=== PATIENT | female | born 1990 | race Caucasian/White ===

== ENCOUNTER 2017-09-28 11:35 | Inpatient (IN) | payer OTHER ==
[2017-09-28 11:51] VITALS: BMI 23.0
[2017-09-28] MEDS ORDERED: Sodium Chloride 0.9% 1,000 ML IV SCH ×2 (12:00→14:45)
--- NOTE | 2017-09-28 12:17 | RAD ---
PROCEDURE: CHEST RADIOGRAPH, 1 VIEW HISTORY: Detox/Psy COMPARISON: None available. FINDINGS: LUNGS: Clear. PLEURA: No pneumothorax or pleural fluid seen. CARDIOVASCULAR: Normal. OSSEOUS STRUCTURES: No significant abnormalities. VISUALIZED UPPER ABDOMEN: Normal. OTHER FINDINGS: None. IMPRESSION: No active disease.
[2017-09-28 12:26] LABS: BASO % 0.7 % (0.0-2.0); EOS % 0.4 % (0.0-4.0); HEMOGLOBIN 13.6 g/dL (11.0-16.0); LYMPH # 1.6 K/uL (1.0-4.3); LYMPH % 27.9 % (20.0-40.0); MEAN CELL VOLUME 83.1 fL (81.0-99.0); MEAN CORPUSCULAR HEMOGLOBIN 28.4 pg (27.0-31.0); MEAN CORPUSCULAR HGB CONC 34.1 g/dL (33.0-37.0); MEAN PLATELET VOLUME 8.8 fL (7.2-11.7); MONO # 0.3 K/uL (0.0-0.8); MONO % 5.3 % (0.0-10.0); NEUT # 3.7 K/uL (1.8-7.0); NEUT % 65.7 % (50.0-75.0); NRBC % 0.1 % (0.0-2.0); RBC 4.79 Mil/uL (3.80-5.20); WHITE BLOOD COUNT 5.6 K/uL (4.8-10.8)
[2017-09-28 12:38] LABS: SQUAMOUS EPITHIAL < 1 /hpf (0-5); URINE BILIRUBIN NEGATIVE (NEGATIVE); URINE BLOOD NEGATIVE (NEGATIVE); URINE CLARITY Clear (Clear); URINE COLOR Yellow (YELLOW); URINE GLUCOSE (UA) NORMAL (Normal); URINE LEUKOCYTE ESTERASE NEG Leu/uL (Negative); URINE PROTEIN NEGATIVE (NEGATIVE); URINE UROBILINOGEN NORMAL mg/dL (0.2-1.0)
--- NOTE | 2017-09-28 12:42 | CT ---
PROCEDURE: CT HEAD WITHOUT CONTRAST. HISTORY: Dizziness COMPARISON: None available. TECHNIQUE: Axial computed tomography images were obtained through the head/brain without intravenous contrast. Radiation dose: Total exam DLP = 933.99 mGy-cm. This CT exam was performed using one or more of the following dose reduction techniques: Automated exposure control, adjustment of the mA and/or kV according to patient size, and/or use of iterative reconstruction technique. FINDINGS: HEMORRHAGE: No intracranial hemorrhage. BRAIN: No mass effect or edema. No atrophy or chronic microvascular ischemic changes. VENTRICLES: Unremarkable. No hydrocephalus. CALVARIUM: Unremarkable. PARANASAL SINUSES: Minor linear and polypoid like mobile coastal thickening seen within the left maxillary antrum MASTOID AIR CELLS: Unremarkable as visualized. No inflammatory changes. OTHER FINDINGS: Orbits and contents unremarkable IMPRESSION: No acute intracranial hemorrhage.
[2017-09-28 12:44] LABS: ACETAMINOPHEN < 10.0 ug/mL (10.0-30.0); SALICYLATE < 1.0 mg/dL 1
[2017-09-28 12:46] LABS: ALBUMIN 4.1 g/dL (3.5-5.0); AST/SGOT 27 U/L (14-36); BLOOD UREA NITROGEN 8 mg/dL (7-17); CALCIUM 8.8 mg/dl (8.6-10.4); GFR AFRICAN-AMERICAN > 60; GFR NON-AFRICAN AMERICAN > 60
--- NOTE | 2017-09-28 12:48 | C.PDOC ---
History Of Present Illness 27 y/o female brought to ER by ambulance for evaluation after she was found to be unresponsive. As per EMS, her roommates " found that she wasn't behaving normally and not responding." Per EMS, patient was found with UNISOM 60 tab bottle 50 mg and Advil PM. UNISOM Bottle was empty, Advil PM bottle had 122 tabs and was liquified. Of note, Patient was speaking with parents allegedly on phone prior to ingerstio. Of note, patient is awake, alert, and non-verbal. Patient does not acknowledge my questions. Time Seen by Provider: 09/28/17 11:36 Chief Complaint (Nursing): Psychiatric Evaluation History Per: EMS History/Exam Limitations: no limitations Onset/Duration Of Symptoms: Hrs Current Symptoms Are (Timing): Still Present Severity: Moderate Past Medical History Reviewed: Historical Data, Nursing Documentation, Vital Signs Vital Signs: Last Vital Signs Temp 98.6 F 09/30/17 08:00 Pulse 95 H 09/30/17 10:00 Resp 23 09/30/17 10:00 BP 100/57 L 09/30/17 10:00 Pulse Ox 99 09/30/17 11:06 - Medical History PMH: No Chronic Diseases Surgical History: No Surg Hx Family History: States: Unknown Family Hx - Social History Hx Alcohol Use: (PT NONVERBAL AT THIS TIME) Hx Substance Use: (PT NONVERBAL AT THIS TIME) Review Of Systems Review Of Systems: ROS cannot be obtained secondary to pt's inabilty to answer questions. Physical Exam - Physical Exam Appears: No Acute Distress, Other (awake,alert, non-verbal, does not acknowledge my questions, steers off) Skin: Normal Color, Warm, Dry Head: Atraumatic, Normacephalic Eye(s): bilateral: Normal Inspection, PERRL Nose: Normal Oral Mucosa: Moist Neck: Supple Chest: Symmetrical Cardiovascular: Rhythm Irregular (tachycardiac) Respiratory: Normal Breath Sounds, No Rales, No Rhonchi, No Wheezing Gastrointestinal/Abdominal: Soft, No Tenderness, No Guarding, No Rebound Neurological/Psych: Other (non-verbal, awake ) ED Course And Treatment - Laboratory Results Result Diagrams: 09/30/17 07:59 09/30/17 07:59 O2 Sat by Pulse Oximetry: 99 (RA) Pulse Ox Interpretation: Normal - CT Scan/US CT-Head Other Rad Studies (CT/US): Read By Radiologist, Radiology Report Reviewed CT/US Interpretation: PROCEDURE: CT HEAD WITHOUT CONTRAST. HISTORY: Dizziness. COMPARISON: None available. TECHNIQUE: Axial computed tomography images were obtained through the head/brain without intravenous contrast. Radiation dose: Total exam DLP = 933.99 mGy-cm. This CT exam was performed using one or more of the following dose reduction techniques: Automated exposure control, adjustment of the mA and/or kV according to patient size, and/ or use of iterative reconstruction technique. FINDINGS: HEMORRHAGE: No intracranial hemorrhage. BRAIN: No mass effect or edema. No atrophy or chronic microvascular ischemic changes. VENTRICLES: Unremarkable. No hydrocephalus. CALVARIUM: Unremarkable. PARANASAL SINUSES: Minor linear and polypoid like mobile coastal thickening seen within the left maxillary antrum. MASTOID AIR CELLS: Unremarkable as visualized. No inflammatory changes. OTHER FINDINGS: Orbits and contents unremarkable. IMPRESSION: No acute intracranial hemorrhage. Medical Decision Making Medical Decision Making: Assessment: Overdose Plan: --Labs --CT- Head --CXR --Ativan IV -- IV Fluids Updates: 12:00 PM Poison Control contacted. Case discussed with hospitalist, . Patient has been admitted to Telemetry for overdose under the service of . critical care time - 50 minutes Disposition Discussed With .: Issac Goodwin Doctor Will See Patient In The: Hospital Counseled Patient/Family Regarding: Studies Performed, Diagnosis - Disposition Disposition: HOSPITALIZED Disposition Time: 13:04 Condition: FAIR - Clinical Impression Clinical Impression: Overdose - Scribe Statement The provider has reviewed the documentation as recorded by the Jose A Reno Provider Attestation: All medical record entries made by the Saniaiblevon were at my direction and personally dictated by me. I have reviewed the chart and agree that the record accurately reflects my personal performance of the history, physical exam, medical decision making, and the department course for this patient. I have also personally directed, reviewed, and agree with the discharge instructions and disposition.
[2017-09-28 12:50] LABS: ALT/SGPT < 6 U/L (9-52)
[2017-09-28] MEDS ORDERED: Dextrose 25% Inj (10ml) IV ONE (12:50)
[2017-09-28 12:51] LABS: BARBITURATES, UR NEGATIVE (NEGATIVE); BENZODIAZEPINES, UR NEGATIVE (NEGATIVE); PHENCYCLIDINE, UR NEGATIVE (NEGATIVE)
[2017-09-28] MEDS ORDERED: Dextrose 25% Inj (10ml) ONE (13:01)
[2017-09-28 13:06] LABS: OPIATES, UR NEGATIVE (NEGATIVE)
[2017-09-28 13:50] LABS: ABG ALLEN TEST POS; ARTERIAL BLOOD GAS HEMOGLOBIN 12.2 g/dL (11.7-17.4); ARTERIAL BLOOD GAS O2 SAT 97.4 % (95-98); ARTERIAL BLOOD GAS PCO2 29 mm/Hg (35-45); ARTERIAL BLOOD GAS PH 7.34 (7.35-7.45); ARTERIAL BLOOD GAS PO2 128 mm/Hg (80-100); ARTERIAL BLOOD GAS TCO2 16.5 mmol/L (22-28)
--- NOTE | 2017-09-28 14:05 | CP.PCM.CON ---
<Tea Nowak - Last Filed: 09/28/17 18:25> History of Present Illness - History of Present Illness History of Present Illness: Critical Care Consult for Dr. Aleksandra Kincaid This is a 27 year old female with unknown medical history who was found unresponsive by her roommates. Patient moved here recently from [facility] and is currently residing with newly acquainted roommates. As per the roommates, she was last seen talking to her parents over the phone this morning, when they started to argue. Shortly after, she was found unresponsive with an empty bottle of Unisom 50mg, 60 tablets and Advil PM, 120 tablets with tablets and liquified content in the bottle. As per EMS, she was found supine, no evidence of head or neck trauma, she was not moving her extremities, was not actively seizing. Patient seen at bedside in the ED. She was tachycardiac 120-140s, with pupils reactive, neck rigid, unable to sidebend to the right, resists passive movement, responds to sternal rub, upper and lower extremities flexed. Accucheck showed sugars <50. Given D50 x 2. Placed on D5 - Bicarb drip. ROS unattainable due to clinical state. PMHx: Unknown PSHx: Unknown Meds: Unknown All: Unknown SHx: Unknown FHx: Unknown Past Patient History - Past Social History Smoking Status: Unknown If Ever Smoked - PSYCHIATRIC Hx Substance Use: (PT NONVERBAL AT THIS TIME) Meds Allergies/Adverse Reactions: Allergies Allergy/AdvReac Type Severity Reaction Status Date / Time Unobtainable Allergy Verified 09/28/17 11:50 - Medications Medications: Current Medications Sodium Chloride (Sodium Chloride 0.9%) 1,000 mls @ 100 mls/hr IV .Q10H [facility] Last Admin: 09/28/17 12:56 Dose: 100 mls/hr Physical Exam - Constitutional Appears: Toxic, Confused - Head Exam Head Exam: ATRAUMATIC, NORMAL INSPECTION, NORMOCEPHALIC - Eye Exam Eye Exam: Normal appearance, PERRL. absent: Conjunctival injection, Nystagmus, Periorbital swelling, Periorbital tenderness, Scleral icterus Pupil Exam: PERRL. absent: Miosis, Mydriatic - ENT Exam ENT Exam: Mucous Membranes Dry, Normal Oropharynx - Neck Exam Neck exam: Negative for: Tenderness, Thyromegaly Additional comments: Neck is rigid, unable to passively flex, sidebend or extend. sidebent to the left - Respiratory Exam Respiratory Exam: Clear to Auscultation Bilateral, NORMAL BREATHING PATTERN. absent: Decreased Breath Sounds - Cardiovascular Exam Cardiovascular Exam: Tachycardia - GI/Abdominal Exam GI & Abdominal Exam: Normal Bowel Sounds, Soft. absent: Distended, Organomegaly - Rectal Exam Rectal Exam: Deferred - Extremities Exam Extremities exam: Positive for: normal inspection, pedal pulses present. Negative for: pedal edema, tenderness - Back Exam Back exam: NORMAL INSPECTION - Neurological Exam Neurological exam: Altered - Expanded Neurological Exam Expanded Neuro motor strength exam: Left Upper Extremity: 3, Right Upper Extremity: 3, Left Lower Extremity: 3, Right Lower Extremity: 3 Coma Scale Eye Opening: To Pain Coma Scale Motor Response: Withdraws to Pain, Abnormal Flexion - Skin Skin Exam: Dry, Intact, Normal Color, Warm Results - Vital Signs Recent Vital Signs: Last Vital Signs Temp 97.5 F L 09/28/17 11:35 Pulse 138 H 09/28/17 13:45 Resp 18 09/28/17 13:45 BP 108/57 L 09/28/17 13:45 Pulse Ox 100 09/28/17 13:45 - Labs Result Diagrams: 09/28/17 12:19 09/28/17 12:19 Labs: Laboratory Results - last 24 hr 09/28/17 09/28/17 09/28/17 11:46 12:19 12:19 WBC 5.6 RBC 4.79 Hgb 13.6 Hct 39.8 MCV 83.1 MCH 28.4 MCHC 34.1 RDW 14.0 Plt Count 292 MPV 8.8 Neut % (Auto) 65.7 Lymph % (Auto) 27.9 Doddridge % (Auto) 5.3 Eos % (Auto) 0.4 Baso % (Auto) 0.7 Neut # (Auto) 3.7 Lymph # (Auto) 1.6 Doddridge # (Auto) 0.3 Eos # (Auto) 0.0 Baso # (Auto) 0.0 Puncture Site pCO2 pO2 HCO3 ABG pH ABG Total CO2 ABG O2 Saturation ABG Base Excess ABG Hemoglobin ABG Carboxyhemoglobin POC ABG HHb (Measured) ABG Methemoglobin Barry Test A-a O2 Difference Respiratory Index Hgb O2 Saturation FiO2 Sodium Potassium Chloride Carbon Dioxide Anion Gap BUN Creatinine Est GFR ( Amer) Est GFR (Non-Af Amer) POC Glucose (mg/dL) 71 Random Glucose Calcium Total Bilirubin AST ALT Alkaline Phosphatase Total Creatine Kinase Total Protein Albumin Globulin Albumin/Globulin Ratio Urine Color Yellow Urine Clarity Clear Urine pH 6.0 Ur Specific Olga 1.006 Urine Protein Negative Urine Glucose (UA) Normal Urine Ketones Negative Urine Blood Negative Urine Nitrate Negative Urine Bilirubin Negative Urine Urobilinogen Normal Ur Leukocyte Esterase Neg Urine WBC (Auto) < 1 Urine RBC (Auto) < 1 Ur Squamous Epith Cells < 1 Salicylates Urine Opiates Screen Urine Methadone Screen Acetaminophen Ur Barbiturates Screen Ur Phencyclidine Scrn Ur Amphetamines Screen U Benzodiazepines Scrn U Oth Cocaine Metabols U Cannabinoids Screen Alcohol, Quantitative 09/28/17 09/28/17 09/28/17 12:19 12:19 12:19 WBC RBC Hgb Hct MCV MCH MCHC RDW Plt Count MPV Neut % (Auto) Lymph % (Auto) Doddridge % (Auto) Eos % (Auto) Baso % (Auto) Neut # (Auto) Lymph # (Auto) Doddridge # (Auto) Eos # (Auto) Baso # (Auto) Puncture Site pCO2 pO2 HCO3 ABG pH ABG Total CO2 ABG O2 Saturation ABG Base Excess ABG Hemoglobin ABG Carboxyhemoglobin POC ABG HHb (Measured) ABG Methemoglobin Barry Test A-a O2 Difference Respiratory Index Hgb O2 Saturation FiO2 Sodium 139 Potassium 3.5 L Chloride 104 Carbon Dioxide 19 L Anion Gap 19 BUN 8 Creatinine 0.6 L Est GFR ( Amer) > 60 Est GFR (Non-Af Amer) > 60 POC Glucose (mg/dL) Random Glucose 61 L Calcium 8.8 Total Bilirubin 0.7 AST 27 ALT < 6 L Alkaline Phosphatase 67 Total Creatine Kinase 86 Total Protein 8.2 Albumin 4.1 Globulin 4.1 H Albumin/Globulin Ratio 1.0 Urine Color Urine Clarity Urine pH Ur Specific Olga Urine Protein Urine Glucose (UA) Urine Ketones Urine Blood Urine Nitrate Urine Bilirubin Urine Urobilinogen Ur Leukocyte Esterase Urine WBC (Auto) Urine RBC (Auto) Ur Squamous Epith Cells Salicylates < 1.0 Urine Opiates Screen Negative Urine Methadone Screen Negative Acetaminophen < 10.0 L Ur Barbiturates Screen Negative Ur Phencyclidine Scrn Negative Ur Amphetamines Screen Negative U Benzodiazepines Scrn Negative U Oth Cocaine Metabols Negative U Cannabinoids Screen Negative Alcohol, Quantitative < 10 09/28/17 13:45 WBC RBC Hgb Hct MCV MCH MCHC RDW Plt Count MPV Neut % (Auto) Lymph % (Auto) Doddridge % (Auto) Eos % (Auto) Baso % (Auto) Neut # (Auto) Lymph # (Auto) Dod[place]idge # (Auto) Eos # (Auto) Baso # (Auto) Puncture Site Rradial pCO2 29 L pO2 128 H HCO3 18.0 L ABG pH 7.34 L ABG Total CO2 16.5 L ABG O2 Saturation 97.4 ABG Base Excess -8.9 L ABG Hemoglobin 12.2 ABG Carboxyhemoglobin 0.3 L POC ABG HHb (Measured) 2.6 ABG Methemoglobin 0.7 Barry Test Pos A-a O2 Difference -15.0 Respiratory Index -0.1 Hgb O2 Saturation 96.3 FiO2 21.0 Sodium Potassium Chloride Carbon Dioxide Anion Gap BUN Creatinine Est GFR ( Amer) Est GFR (Non-Af Amer) POC Glucose (mg/dL) Random Glucose Calcium Total Bilirubin AST ALT Alkaline Phosphatase Total Creatine Kinase Total Protein Albumin Globulin Albumin/Globulin Ratio Urine Color Urine Clarity Urine pH Ur Specific Olga Urine Protein Urine Glucose (UA) Urine Ketones Urine Blood Urine Nitrate Urine Bilirubin Urine Urobilinogen Ur Leukocyte Esterase Urine WBC (Auto) Urine RBC (Auto) Ur Squamous Epith Cells Salicylates Urine Opiates Screen Urine Methadone Screen Acetaminophen Ur Barbiturates Screen Ur Phencyclidine Scrn Ur Amphetamines Screen U Benzodiazepines Scrn U Oth Cocaine Metabols U Cannabinoids Screen Alcohol, Quantitative Assessment & Plan - Assessment and Plan (Free Text) Assessment: This is a 27 year old female with unknown medical history who was found unresponsive by her roommates. Patient moved here recently from [facility] and is currently residing with newly acquainted roommates. As per the roommates, she was last seen talking to her parents over the phone this morning, when they started to argue. Shortly after, she was found unresponsive with an empty bottle of Unisom 50mg, 60 tablets and Advil PM, 120 tablets with tablets and liquified content in the bottle. As per EMS, she was found supine, no evidence of head or neck trauma, she was not moving her extremities, was not actively seizing. Patient seen at bedside in the ED. She was tachycardiac 120-140s, with pupils reactive, neck rigid, unable to sidebend to the right, resists passive movement, responds to sternal rub, upper and lower extremities flexed. Accucheck showed sugars <50. Given D50 x 2. Placed on D5 - Bicarb drip. Plan: Neuro: GCS 10 (E4 V2 M4) Awake, attempting to communicate, able to move all extremities on command A: Overdose - Started on Bicarbonate drip - Started Acetylcysteine protocol - F/U drug tox, monitor lactate level, serial labs Q6Hs A: ??Seizure Activity - Neurology consulted - Dr. Bowens - EEG done at bedside - pending read - Keppra loaded, started Keppra 750mg Q12 Cardio: A: Prolonged QTc - EKG: QTc @ 570 - Serial EKGs to monitor QTc Pulm: - No acute distress Endo: A: Hypoglycemia - Accuchecks < 50s in the ED - Was given D50 x 2 amps in ED --250s - Accuchecks, continue to monitor - Currently on D5-0.9% NS ID: A: SIRS - Afebrile, no leukocytosis with left shift, no bandemia, Lactate 3.5 --> 4.7 - Started Rocephin, Vanco empirically 09/28/17 - F/U UC, BC, procal GI: - No acute issues Psych: - Psych consulted - Dr. Tavares for overdose Prophylaxis - Lovenox DW Dr. Aleksandra Kincaid, Tea Nowak DO, PGY-1 <Awilda Kincaid - Last Filed: 09/29/17 10:45> Meds - Medications Medications: Current Medications Enoxaparin Sodium (Lovenox) 40 mg SC DAILY [facility] Acetylcysteine 5,900 mg/ (Dextrose) 1,029.5 mls @ 64.344 mls/hr IVPB ONCE ONE Stop: 09/29/17 12:59 Last Admin: 09/28/17 22:02 Dose: 64.344 mls/hr Vancomycin/Sodium Chloride (Vancomycin 1 Gm/Ns 200 Ml) 1 gm in 200 mls @ 133 mls/hr IVPB Q12H [facility]IN PRN Reason: Protocol Stop: 10/03/17 17:01 Last Admin: 09/29/17 05:59 Dose: 133 mls/hr Ceftriaxone Sodium 2 gm/ (Sodium Chloride) 100 mls @ 100 mls/hr IVPB Q12H [facility] PRN Reason: Protocol Last Admin: 09/29/17 04:38 Dose: 100 mls/hr Levetiracetam 750 mg/ Dextrose 107.5 mls @ 420 mls/hr IVPB Q12H [facility] Dextrose/Sodium Chloride (Dextrose 5%/0.9% Ns 1000 Ml) 1,000 mls @ 100 mls/hr IV .Q10H [facility] Last Admin: 09/29/17 05:59 Dose: Not Given Potassium Phosphate 15 mmole/ (Sodium Chloride) 255 mls @ 42.5 mls/hr IV ONCE ONE Stop: 09/29/17 13:29 Last Admin: 09/29/17 10:29 Dose: 42.5 mls/hr Magnesium Sulfate/Dextrose (Magnesium Sulfate 1 Gm/100 Ml D5w) 1 gm in 100 mls @ 100 mls/hr IVPB Q1H [facility] Stop: 09/29/17 10:59 Last Admin: 09/29/17 09:54 Dose: 100 mls/hr Potassium Chloride (Potassium Chloride 10 Meq/100 Ml) 10 meq in 100 mls @ 100 mls/hr IVPB Q1H [facility] Stop: 09/29/17 12:14 Last Admin: 09/29/17 10:27 Dose: 100 mls/hr Pneumococcal Polyvalent Vaccine (Pneumovax 23 Vaccine) 0.5 ml SC .ONCE ONE Stop: 10/01/17 10:01 Vitamin A (Vitamin A & D Oint Ud Foilpak) 1 ea TOP BID [facility] Results - Vital Signs Recent Vital Signs: Last Vital Signs Temp 97.6 F 09/29/17 08:00 Pulse 110 H 09/29/17 10:00 Resp 19 09/29/17 10:00 BP 118/61 09/29/17 09:59 Pulse Ox 100 09/29/17 10:00 - Labs Result Diagrams: 09/29/17 06:12 09/29/17 06:14 Labs: Laboratory Results - last 24 hr 09/28/17 09/28/17 09/28/17 11:46 12:19 12:19 WBC 5.6 RBC 4.79 Hgb 13.6 Hct 39.8 MCV 83.1 MCH 28.4 MCHC 34.1 RDW 14.0 Plt Count 292 MPV 8.8 Neut % (Auto) 65.7 Lymph % (Auto) 27.9 Doddridge % (Auto) 5.3 Eos % (Auto) 0.4 Baso % (Auto) 0.7 Neut # (Auto) 3.7 Lymph # (Auto) 1.6 Doddridge # (Auto) 0.3 Eos # (Auto) 0.0 Baso # (Auto) 0.0 Neutrophils % (Manual) Lymphocytes % (Manual) Monocytes % (Manual) Platelet Estimate RBC Morphology Puncture Site pCO2 pO2 HCO3 ABG pH ABG Total CO2 ABG O2 Saturation ABG Base Excess ABG Hemoglobin ABG Carboxyhemoglobin POC ABG HHb (Measured) ABG Methemoglobin Barry Test VBG pH VBG pCO2 VBG HCO3 VBG Total CO2 VBG O2 Sat (Calc) VBG Base Excess VBG Potassium A-a O2 Difference Respiratory Index Hgb O2 Saturation Glucose Lactate FiO2 Crit Value Called To Crit Value Called By Crit Value Read Back Blood Gas Notified Time Sodium Potassium Chloride Carbon Dioxide Anion Gap BUN Creatinine Est GFR ( Amer) Est GFR (Non-Af Amer) POC Glucose (mg/dL) 71 Random Glucose Serum Osmolality Lactic Acid Calcium Phosphorus Magnesium Total Bilirubin AST ALT Alkaline Phosphatase Ammonia Total Creatine Kinase Total Protein Albumin Globulin Albumin/Globulin Ratio Procalcitonin Venous Blood Potassium Urine Color Yellow Urine Clarity Clear Urine pH 6.0 Ur Specific Olga 1.006 Urine Protein Negative Urine Glucose (UA) Normal Urine Ketones Negative Urine Blood Negative Urine Nitrate Negative Urine Bilirubin Negative Urine Urobilinogen Normal Ur Leukocyte Esterase Neg Urine WBC (Auto) < 1 Urine RBC (Auto) < 1 Ur Squamous Epith Cells < 1 Urine Osmolality Salicylates Urine Opiates Screen Urine Methadone Screen Acetaminophen Ur Barbiturates Screen Ur Phencyclidine Scrn Ur Amphetamines Screen U Benzodiazepines Scrn U Oth Cocaine Metabols U Cannabinoids Screen Alcohol, Quantitative 09/28/17 09/28/17 09/28/17 12:19 12:19 12:19 WBC RBC Hgb Hct MCV MCH MCHC RDW Plt Count MPV Neut % (Auto) Lymph % (Auto) Doddridge % (Auto) Eos % (Auto) Baso % (Auto) Neut # (Auto) Lymph # (Auto) Doddridge # (Auto) Eos # (Auto) Baso # (Auto) Neutrophils % (Manual) Lymphocytes % (Manual) Monocytes % (Manual) Platelet Estimate RBC Morphology Puncture Site pCO2 pO2 HCO3 ABG pH ABG Total CO2 ABG O2 Saturation ABG Base Excess ABG Hemoglobin ABG Carboxyhemoglobin POC ABG HHb (Measured) ABG Methemoglobin Barry Test VBG pH VBG pCO2 VBG HCO3 VBG Total CO2 VBG O2 Sat (Calc) VBG Base Excess VBG Potassium A-a O2 Difference Respiratory Index Hgb O2 Saturation Glucose Lactate FiO2 Crit Value Called To Crit Value Called By Crit Value Read Back Blood Gas Notified Time Sodium 139 Potassium 3.5 L Chloride 104 Carbon Dioxide 19 L Anion Gap 19 BUN 8 Creatinine 0.6 L Est GFR ( Amer) > 60 Est GFR (Non-Af Amer) > 60 POC Glucose (mg/dL) Random Glucose 61 L Serum Osmolality Lactic Acid Calcium 8.8 Phosphorus Magnesium Total Bilirubin 0.7 AST 27 ALT < 6 L Alkaline Phosphatase 67 Ammonia Total Creatine Kinase 86 Total Protein 8.2 Albumin 4.1 Globulin 4.1 H Albumin/Globulin Ratio 1.0 Procalcitonin Venous Blood Potassium Urine Color Urine Clarity Urine pH Ur Specific Olga Urine Protein Urine Glucose (UA) Urine Ketones Urine Blood Urine Nitrate Urine Bilirubin Urine Urobilinogen Ur Leukocyte Esterase Urine WBC (Auto) Urine RBC (Auto) Ur Squamous Epith Cells Urine Osmolality Salicylates < 1.0 Urine Opiates Screen Negative Urine Methadone Screen Negative Acetaminophen < 10.0 L Ur Barbiturates Screen Negative Ur Phencyclidine Scrn Negative Ur Amphetamines Screen Negative U Benzodiazepines Scrn Negative U Oth Cocaine Metabols Negative U Cannabinoids Screen Negative Alcohol, Quantitative < 10 09/28/17 09/28/17 09/28/17 13:45 14:24 14:45 WBC RBC Hgb Hct MCV MCH MCHC RDW Plt Count MPV Neut % (Auto) Lymph % (Auto) Doddridge % (Auto) Eos % (Auto) Baso % (Auto) Neut # (Auto) Lymph # (Auto) Doddridge # (Auto) Eos # (Auto) Baso # (Auto) Neutrophils % (Manual) Lymphocytes % (Manual) Monocytes % (Manual) Platelet Estimate RBC Morphology Puncture Site Rradial pCO2 29 L pO2 128 H HCO3 18.0 L ABG pH 7.34 L ABG Total CO2 16.5 L ABG O2 Saturation 97.4 ABG Base Excess -8.9 L ABG Hemoglobin 12.2 ABG Carboxyhemoglobin 0.3 L POC ABG HHb (Measured) 2.6 ABG Methemoglobin 0.7 Barry Test Pos VBG pH VBG pCO2 VBG HCO3 VBG Total CO2 VBG O2 Sat (Calc) VBG Base Excess VBG Potassium A-a O2 Difference -15.0 Respiratory Index -0.1 Hgb O2 Saturation 96.3 Glucose Lactate FiO2 21.0 Crit Value Called To Crit Value Called By Crit Value Read Back Blood Gas Notified Time Sodium Potassium Chloride Carbon Dioxide Anion Gap BUN Creatinine Est GFR ( Amer) Est GFR (Non-Af Amer) POC Glucose (mg/dL) 57 L Random Glucose Serum Osmolality Lactic Acid Calcium Phosphorus Magnesium Total Bilirubin AST ALT Alkaline Phosphatase Ammonia < 9 L Total Creatine Kinase Total Protein Albumin Globulin Albumin/Globulin Ratio Procalcitonin Venous Blood Potassium Urine Color Urine Clarity Urine pH Ur Specific Olga Urine Protein Urine Glucose (UA) Urine Ketones Urine Blood Urine Nitrate Urine Bilirubin Urine Urobilinogen Ur Leukocyte Esterase Urine WBC (Auto) Urine RBC (Auto) Ur Squamous Epith Cells Urine Osmolality Salicylates Urine Opiates Screen Urine Methadone Screen Acetaminophen Ur Barbiturates Screen Ur Phencyclidine Scrn Ur Amphetamines Screen U Benzodiazepines Scrn U Oth Cocaine Metabols U Cannabinoids Screen Alcohol, Quantitative 09/28/17 09/28/17 09/28/17 14:47 15:14 15:20 WBC RBC Hgb Hct MCV MCH MCHC RDW Plt Count MPV Neut % (Auto) Lymph % (Auto) Doddridge % (Auto) Eos % (Auto) Baso % (Auto) Neut # (Auto) Lymph # (Auto) Doddridge # (Auto) Eos # (Auto) Baso # (Auto) Neutrophils % (Manual) Lymphocytes % (Manual) Monocytes % (Manual) Platelet Estimate RBC Morphology Puncture Site pCO2 pO2 HCO3 ABG pH ABG Total CO2 ABG O2 Saturation ABG Base Excess ABG Hemoglobin ABG Carboxyhemoglobin POC ABG HHb (Measured) ABG Methemoglobin Barry Test VBG pH VBG pCO2 VBG HCO3 VBG Total CO2 VBG O2 Sat (Calc) VBG Base Excess VBG Potassium A-a O2 Difference Respiratory Index Hgb O2 Saturation Glucose Lactate FiO2 Crit Value Called To Crit Value Called By Crit Value Read Back Blood Gas Notified Time Sodium Potassium Chloride Carbon Dioxide Anion Gap BUN Creatinine Est GFR ( Amer) Est GFR (Non-Af Amer) POC Glucose (mg/dL) 60 L 214 H Random Glucose Serum Osmolality Lactic Acid Calcium Phosphorus Magnesium Total Bilirubin AST ALT Alkaline Phosphatase Ammonia Total Creatine Kinase Total Protein Albumin Globulin Albumin/Globulin Ratio Procalcitonin Venous Blood Potassium Urine Color Urine Clarity Urine pH Ur Specific Olga Urine Protein Urine Glucose (UA) Urine Ketones Urine Blood Urine Nitrate Urine Bilirubin Urine Urobilinogen Ur Leukocyte Esterase Urine WBC (Auto) Urine RBC (Auto) Ur Squamous Epith Cells Urine Osmolality 291 L Salicylates Urine Opiates Screen Urine Methadone Screen Acetaminophen Ur Barbiturates Screen Ur Phencyclidine Scrn Ur Amphetamines Screen U Benzodiazepines Scrn U Oth Cocaine Metabols U Cannabinoids Screen Alcohol, Quantitative 09/28/17 09/28/17 09/28/17 15:20 16:26 16:48 WBC RBC Hgb Hct MCV MCH MCHC RDW Plt Count MPV Neut % (Auto) Lymph % (Auto) Doddridge % (Auto) Eos % (Auto) Baso % (Auto) Neut # (Auto) Lymph # (Auto) Doddridge # (Auto) Eos # (Auto) Baso # (Auto) Neutrophils % (Manual) Lymphocytes % (Manual) Monocytes % (Manual) Platelet Estimate RBC Morphology Puncture Site pCO2 pO2 HCO3 ABG pH ABG Total CO2 ABG O2 Saturation ABG Base Excess ABG Hemoglobin ABG Carboxyhemoglobin POC ABG HHb (Measured) ABG Methemoglobin Barry Test VBG pH VBG pCO2 VBG HCO3 VBG Total CO2 VBG O2 Sat (Calc) VBG Base Excess VBG Potassium A-a O2 Difference Respiratory Index Hgb O2 Saturation Glucose Lactate FiO2 Crit Value Called To Crit Value Called By Crit Value Read Back Blood Gas Notified Time Sodium Potassium Chloride Carbon Dioxide Anion Gap BUN Creatinine Est GFR ( Amer) Est GFR (Non-Af Amer) POC Glucose (mg/dL) 237 H Random Glucose Serum Osmolality 294 Lactic Acid 3.5 H Calcium Phosphorus Magnesium Total Bilirubin AST ALT Alkaline Phosphatase Ammonia Total Creatine Kinase Total Protein Albumin Globulin Albumin/Globulin Ratio Procalcitonin Venous Blood Potassium Urine Color Urine Clarity Urine pH Ur Specific Olga Urine Protein Urine Glucose (UA) Urine Ketones Urine Blood Urine Nitrate Urine Bilirubin Urine Urobilinogen Ur Leukocyte Esterase Urine WBC (Auto) Urine RBC (Auto) Ur Squamous Epith Cells Urine Osmolality Salicylates Urine Opiates Screen Urine Methadone Screen Acetaminophen Ur Barbiturates Screen Ur Phencyclidine Scrn Ur Amphetamines Screen U Benzodiazepines Scrn U Oth Cocaine Metabols U Cannabinoids Screen Alcohol, Quantitative 09/28/17 09/28/17 09/28/17 17:31 20:07 20:14 WBC RBC Hgb Hct MCV MCH MCHC RDW Plt Count MPV Neut % (Auto) Lymph % (Auto) Dod[place]idge % (Auto) Eos % (Auto) Baso % (Auto) Neut # (Auto) Lymph # (Auto) Dod[place]idge # (Auto) Eos # (Auto) Baso # (Auto) Neutrophils % (Manual) Lymphocytes % (Manual) Monocytes % (Manual) Platelet Estimate RBC Morphology Puncture Site pCO2 pO2 35 41 HCO3 ABG pH ABG Total CO2 ABG O2 Saturation ABG Base Excess ABG Hemoglobin ABG Carboxyhemoglobin POC ABG HHb (Measured) ABG Methemoglobin Barry Test VBG pH 7.28 L 7.38 VBG pCO2 37 L 31 L VBG HCO3 17.2 19.9 VBG Total CO2 18.5 L 19.3 L VBG O2 Sat (Calc) 66.6 H 80.7 H VBG Base Excess -8.6 L -5.7 L VBG Potassium 5.0 3.1 L A-a O2 Difference Respiratory Index Hgb O2 Saturation Glucose 241 H 162 H Lactate 4.7 H* 2.4 H FiO2 Crit Value Called To Dr. kincaid Crit Value Called By Effie Crit Value Read Back Y Blood Gas Notified Time 1731 Sodium 137.0 134.0 Potassium Chloride 100.0 100.0 Carbon Dioxide Anion Gap BUN Creatinine Est GFR ( Amer) Est GFR (Non-Af Amer) POC Glucose (mg/dL) 185 H Random Glucose Serum Osmolality Lactic Acid Calcium Phosphorus Magnesium Total Bilirubin AST ALT Alkaline Phosphatase Ammonia Total Creatine Kinase Total Protein Albumin Globulin Albumin/Globulin Ratio Procalcitonin Venous Blood Potassium 5.0 3.1 L Urine Color Urine Clarity Urine pH Ur Specific Olga Urine Protein Urine Glucose (UA) Urine Ketones Urine Blood Urine Nitrate Urine Bilirubin Urine Urobilinogen Ur Leukocyte Esterase Urine WBC (Auto) Urine RBC (Auto) Ur Squamous Epith Cells Urine Osmolality Salicylates Urine Opiates Screen Urine Methadone Screen Acetaminophen Ur Barbiturates Screen Ur Phencyclidine Scrn Ur Amphetamines Screen U Benzodiazepines Scrn U Oth Cocaine Metabols U Cannabinoids Screen Alcohol, Quantitative 09/28/17 09/28/17 09/28/17 20:20 20:20 20:20 WBC 9.9 D RBC 4.79 Hgb 13.2 Hct 39.9 MCV 83.2 MCH 27.5 MCHC 33.1 RDW 14.4 Plt Count 282 MPV 8.5 Neut % (Auto) 92.7 H Lymph % (Auto) 3.9 L Dod[place]idge % (Auto) 3.0 Eos % (Auto) 0.0 Baso % (Auto) 0.4 Neut # (Auto) 9.2 H Lymph # (Auto) 0.4 L Doddridge # (Auto) 0.3 Eos # (Auto) 0.0 Baso # (Auto) 0.0 Neutrophils % (Manual) 95 H Lymphocytes % (Manual) 4 L Monocytes % (Manual) 1 Platelet Estimate Normal RBC Morphology Puncture Site pCO2 pO2 HCO3 ABG pH ABG Total CO2 ABG O2 Saturation ABG Base Excess ABG Hemoglobin ABG Carboxyhemoglobin POC ABG HHb (Measured) ABG Methemoglobin Barry Test VBG pH VBG pCO2 VBG HCO3 VBG Total CO2 VBG O2 Sat (Calc) VBG Base Excess VBG Potassium A-a O2 Difference Respiratory Index Hgb O2 Saturation Glucose Lactate FiO2 Crit Value Called To Crit Value Called By Crit Value Read Back Blood Gas Notified Time Sodium 136 Potassium 3.3 L Chloride 100 Carbon Dioxide 17 L Anion Gap 22 H BUN 6 L Creatinine 0.5 L Est GFR ( Amer) > 60 Est GFR (Non-Af Amer) > 60 POC Glucose (mg/dL) Random Glucose 157 H Serum Osmolality Lactic Acid Calcium 7.6 L Phosphorus 1.0 L* Magnesium 1.7 Total Bilirubin 0.4 AST 18 ALT 8 L D Alkaline Phosphatase < 20 L D Ammonia Total Creatine Kinase Total Protein 7.5 Albumin 4.2 Globulin 3.3 Albumin/Globulin Ratio 1.3 Procalcitonin < 0.05 L Venous Blood Potassium Urine Color Urine Clarity Urine pH Ur Specific Olga Urine Protein Urine Glucose (UA) Urine Ketones Urine Blood Urine Nitrate Urine Bilirubin Urine Urobilinogen Ur Leukocyte Esterase Urine WBC (Auto) Urine RBC (Auto) Ur Squamous Epith Cells Urine Osmolality Salicylates Urine Opiates Screen Urine Methadone Screen Acetaminophen Ur Barbiturates Screen Ur Phencyclidine Scrn Ur Amphetamines Screen U Benzodiazepines Scrn U Oth Cocaine Metabols U Cannabinoids Screen Alcohol, Quantitative 09/28/17 09/29/1718 23:40 05:35 05:48 WBC RBC Hgb Hct MCV MCH MCHC RDW Plt Count MPV Neut % (Auto) Lymph % (Auto) Dod[place]idge % (Auto) Eos % (Auto) Baso % (Auto) Neut # (Auto) Lymph # (Auto) Doddridge # (Auto) Eos # (Auto) Baso # (Auto) Neutrophils % (Manual) Lymphocytes % (Manual) Monocytes % (Manual) Platelet Estimate RBC Morphology Puncture Site pCO2 pO2 27 L HCO3 ABG pH ABG Total CO2 ABG O2 Saturation ABG Base Excess ABG Hemoglobin ABG Carboxyhemoglobin POC ABG HHb (Measured) ABG Methemoglobin Barry Test VBG pH 7.49 H VBG pCO2 29 L VBG HCO3 23.7 VBG Total CO2 23.0 VBG O2 Sat (Calc) 56.9 VBG Base Excess -0.2 L VBG Potassium 2.5 L* A-a O2 Difference Respiratory Index Hgb O2 Saturation Glucose 110 H Lactate 1.5 FiO2 Crit Value Called To Reginald sanchez rn 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 Crit Value Read Back Y Blood Gas Notified Time 540 Sodium 137.0 Potassium Chloride 104.0 Carbon Dioxide Anion Gap BUN Creatinine Est GFR ( Amer) Est GFR (Non-Af Amer) POC Glucose (mg/dL) 105 119 H Random Glucose Serum Osmolality Lactic Acid Calcium Phosphorus Magnesium Total Bilirubin AST ALT Alkaline Phosphatase Ammonia Total Creatine Kinase Total Protein Albumin Globulin Albumin/Globulin Ratio Procalcitonin Venous Blood Potassium 2.5 L* Urine Color Urine Clarity Urine pH Ur Specific [place] Urine Protein Urine Glucose (UA) Urine Ketones Urine Blood Urine Nitrate Urine Bilirubin Urine Urobilinogen Ur Leukocyte Esterase Urine WBC (Auto) Urine RBC (Auto) Ur Squamous Epith Cells Urine Osmolality Salicylates Urine Opiates Screen Urine Methadone Screen Acetaminophen Ur Barbiturates Screen Ur Phencyclidine Scrn Ur Amphetamines Screen U Benzodiazepines Scrn U Oth Cocaine Metabols U Cannabinoids Screen Alcohol, Quantitative 09/29/17 09/29/17 09/29/17 06:12 06:14 07:01 WBC 16.4 H D RBC 4.47 Hgb 12.5 Hct 37.0 MCV 82.7 MCH 27.9 MCHC 33.7 RDW 13.8 Plt Count 290 MPV 8.7 Neut % (Auto) 86.3 H Lymph % (Auto) 7.0 L [place] % (Auto) 6.6 Eos % (Auto) 0.0 Baso % (Auto) 0.1 Neut # (Auto) 14.1 H Lymph # (Auto) 1.1 [place] # (Auto) 1.1 H Eos # (Auto) 0.0 Baso # (Auto) 0.0 Neutrophils % (Manual) 89 H Lymphocytes % (Manual) 8 L Monocytes % (Manual) 3 Platelet Estimate Normal RBC Morphology Normal Puncture Site pCO2 pO2 HCO3 ABG pH ABG Total CO2 ABG O2 Saturation ABG Base Excess ABG Hemoglobin ABG Carboxyhemoglobin POC ABG HHb (Measured) ABG Methemoglobin Barry Test VBG pH VBG pCO2 VBG HCO3 VBG Total CO2 VBG O2 Sat (Calc) VBG Base Excess VBG Potassium A-a O2 Difference Respiratory Index Hgb O2 Saturation Glucose Lactate FiO2 Crit Value Called To Crit Value Called By Crit Value Read Back Blood Gas Notified Time Sodium 139 Potassium 2.8 L Chloride 102 Carbon Dioxide 22 Anion Gap 18 BUN 4 L Creatinine 0.5 L Est GFR ( Amer) > 60 Est GFR (Non-Af Amer) > 60 POC Glucose (mg/dL) Random Glucose 99 Serum Osmolality Lactic Acid Calcium 7.9 L Phosphorus 2.8 Magnesium 1.6 Total Bilirubin 0.4 AST 17 ALT < 6 L D Alkaline Phosphatase 43 Ammonia Total Creatine Kinase Total Protein 7.4 Albumin 3.8 Globulin 3.6 Albumin/Globulin Ratio 1.0 Procalcitonin Venous Blood Potassium Urine Color Urine Clarity Urine pH Ur Specific [place] Urine Protein Urine Glucose (UA) Urine Ketones Urine Blood Urine Nitrate Urine Bilirubin Urine Urobilinogen Ur Leukocyte Esterase Urine WBC (Auto) Urine RBC (Auto) Ur Squamous Epith Cells Urine Osmolality Salicylates Urine Opiates Screen Urine Methadone Screen Acetaminophen Ur Barbiturates Screen Ur Phencyclidine Scrn Ur Amphetamines Screen U Benzodiazepines Scrn U Oth Cocaine Metabols U Cannabinoids Screen Alcohol, Quantitative 09/29/17 09:10 WBC RBC Hgb Hct MCV MCH MCHC RDW Plt Count MPV Neut % (Auto) Lymph % (Auto) [place] % (Auto) Eos % (Auto) Baso % (Auto) Neut # (Auto) Lymph # (Auto) [place] # (Auto) Eos # (Auto) Baso # (Auto) Neutrophils % (Manual) Lymphocytes % (Manual) Monocytes % (Manual) Platelet Estimate RBC Morphology Puncture Site pCO2 pO2 HCO3 ABG pH ABG Total CO2 ABG O2 Saturation ABG Base Excess ABG Hemoglobin ABG Carboxyhemoglobin POC ABG HHb (Measured) ABG Methemoglobin Barry Test VBG pH VBG pCO2 VBG HCO3 VBG Total CO2 VBG O2 Sat (Calc) VBG Base Excess VBG Potassium A-a O2 Difference Respiratory Index Hgb O2 Saturation Glucose Lactate FiO2 Crit Value Called To Crit Value Called By Crit Value Read Back Blood Gas Notified Time Sodium Potassium Chloride Carbon Dioxide Anion Gap BUN Creatinine Est GFR ( Amer) Est GFR (Non-Af Amer) POC Glucose (mg/dL) Random Glucose Serum Osmolality 295 Lactic Acid Calcium Phosphorus Magnesium Total Bilirubin AST ALT Alkaline Phosphatase Ammonia Total Creatine Kinase Total Protein Albumin Globulin Albumin/Globulin Ratio Procalcitonin Venous Blood Potassium Urine Color Urine Clarity Urine pH Ur Specific [place] Urine Protein Urine Glucose (UA) Urine Ketones Urine Blood Urine Nitrate Urine Bilirubin Urine Urobilinogen Ur Leukocyte Esterase Urine WBC (Auto) Urine RBC (Auto) Ur Squamous Epith Cells Urine Osmolality Salicylates Urine Opiates Screen Urine Methadone Screen Acetaminophen Ur Barbiturates Screen Ur Phencyclidine Scrn Ur Amphetamines Screen U Benzodiazepines Scrn U Oth Cocaine Metabols U Cannabinoids Screen Alcohol, Quantitative Assessment & Plan - Assessment and Plan (Free Text) Plan: Patient seen and examined at bedside. Patient is non-verbal. EMS provided history of a female lying in bed. -Drug oversode -r/o sepsis -QTC prolonged -Hypoglycemia -r/o seizures above resident note reviewed and verified. Patient remains hemodynamically stable -psych eval -neuro eval -continue 1:1 - Date & Time Date: 09/28/17 Time: 19:00
[2017-09-28] MEDS ORDERED: Potassium Chloride 20 mEq ER Tab PO ONE (14:15)
[2017-09-28] MEDS ORDERED: Dextrose 50% SYRINGE Inj (50 ml) IV STA ×3 (14:42→14:57)
[2017-09-28] MEDS ORDERED: Dextrose 50% SYRINGE Inj (50 ml) ONE (14:51)
[2017-09-28] MEDS ORDERED: Sodium Chloride 0.9% 1,000 ML ONE (14:52)
--- NOTE | 2017-09-28 14:55 | CP.PCM.HP ---
History of Present Illness - History of Present Illness History of Present Illness: This is a 27 yo female, originally from [place], with unknown past medical hx, presenting to [facility] ER by ambulance. Pt is unresponsive and unable to provide any history. Pt is visiting from [facility] for a limited time only. Patient was found unresponsive at her home this morning. Apparently her housemates found her unresponsive and they called 911. They say that 2 pill bottles were found by her side. One is a unisom bottle of 60 softgel tabs and the other is a bottle of advil pm with 120 coated tablets. The advil container was found with liquefied contents and half the bottle missing. The unisom container was completely empty. Housemates say she was talking on the phone with parents in [facility] earlier. Nothing seemed out of the ordinary. They deny she had homicidal or suicidal ideation. Pt does have a room mate, but so far unable to be contacted. Pt given dextrose and ativan IV in ER. ICU consult placed, started on abx to cover meningitis and bicarb drip. Pt hypoglycemic in ER. PMH: unknown Past psych hx: unknown PSH: unknown Allergies: NKDA FH: Unknown Home meds: unknown Social hx: unobtainable. Recent ER visits/hospitalizations: no records in the system Insurance: [employer] Present on Admission - Present on Admission Any Indicators Present on Admission: No History of DVT/PE: No History of Uncontrolled Diabetes: No Urinary Catheter: No Decubitus Ulcer Present: No Review of Systems - Review of Systems Systems not reviewed;Unavailable: Altered Mental Status Past Patient History - Infectious Disease Hx of Infectious Diseases: None - Tetanus Immunizations Tetanus Immunization: Unknown - Past Medical History & Family History Past Medical History?: No Pertinent Family History: unknown at this time - Past Social History Smoking Status: Unknown If Ever Smoked Chewing Tobacco Use: No Cigar Use: No Alcohol: None Drugs: Other Home Situation {Lives}: Friends Domestic Violence: Negative - PSYCHIATRIC Hx Substance Use: (PT NONVERBAL AT THIS TIME) Meds Allergies/Adverse Reactions: Allergies Allergy/AdvReac Type Severity Reaction Status Date / Time Unobtainable Allergy Verified 09/28/17 11:50 Physical Exam - Constitutional Additional comments: altered; unresponsive - Head Exam Head Exam: ATRAUMATIC, NORMAL INSPECTION, NORMOCEPHALIC - Eye Exam Pupil Exam: Mydriatic Additional comments: pupils are reactive - ENT Exam ENT Exam: Mucous Membranes Moist - Neck Exam Neck exam: Positive for: Normal Inspection Additional comments: neck stiff - Respiratory Exam Respiratory Exam: NORMAL BREATHING PATTERN. absent: Respiratory Distress - Cardiovascular Exam Cardiovascular Exam: Tachycardia, +S1, +S2 - GI/Abdominal Exam GI & Abdominal Exam: Firm. absent: Tenderness - Extremities Exam Extremities exam: Positive for: full ROM, normal inspection - Neurological Exam Neurological exam: Altered - Psychiatric Exam Additional comments: unable to assess; pt altered - Skin Skin Exam: Dry, Intact, Normal Color, Warm Results - Vital Signs Recent Vital Signs: Last Vital Signs Temp 97.5 F L 09/28/17 11:35 Pulse 138 H 09/28/17 13:45 Resp 18 09/28/17 13:45 BP 108/57 L 09/28/17 13:45 Pulse Ox 100 09/28/17 13:45 - Labs Result Diagrams: 09/28/17 12:19 09/28/17 12:19 Labs: Laboratory Results - last 24 hr 09/28/17 09/28/17 09/28/17 11:46 12:19 12:19 WBC 5.6 RBC 4.79 Hgb 13.6 Hct 39.8 MCV 83.1 MCH 28.4 MCHC 34.1 RDW 14.0 Plt Count 292 MPV 8.8 Neut % (Auto) 65.7 Lymph % (Auto) 27.9 [place] % (Auto) 5.3 Eos % (Auto) 0.4 Baso % (Auto) 0.7 Neut # (Auto) 3.7 Lymph # (Auto) 1.6 [place] # (Auto) 0.3 Eos # (Auto) 0.0 Baso # (Auto) 0.0 Puncture Site pCO2 pO2 HCO3 ABG pH ABG Total CO2 ABG O2 Saturation ABG Base Excess ABG Hemoglobin ABG Carboxyhemoglobin POC ABG HHb (Measured) ABG Methemoglobin Barry Test A-a O2 Difference Respiratory Index Hgb O2 Saturation FiO2 Sodium Potassium Chloride Carbon Dioxide Anion Gap BUN Creatinine Est GFR ( Amer) Est GFR (Non-Af Amer) POC Glucose (mg/dL) 71 Random Glucose Calcium Total Bilirubin AST ALT Alkaline Phosphatase Total Creatine Kinase Total Protein Albumin Globulin Albumin/Globulin Ratio Urine Color Yellow Urine Clarity Clear Urine pH 6.0 Ur Specific [place] 1.006 Urine Protein Negative Urine Glucose (UA) Normal Urine Ketones Negative Urine Blood Negative Urine Nitrate Negative Urine Bilirubin Negative Urine Urobilinogen Normal Ur Leukocyte Esterase Neg Urine WBC (Auto) < 1 Urine RBC (Auto) < 1 Ur Squamous Epith Cells < 1 Salicylates Urine Opiates Screen Urine Methadone Screen Acetaminophen Ur Barbiturates Screen Ur Phencyclidine Scrn Ur Amphetamines Screen U Benzodiazepines Scrn U Oth Cocaine Metabols U Cannabinoids Screen Alcohol, Quantitative 09/28/17 09/28/17 09/28/17 12:19 12:19 12:19 WBC RBC Hgb Hct MCV MCH MCHC RDW Plt Count MPV Neut % (Auto) Lymph % (Auto) [place] % (Auto) Eos % (Auto) Baso % (Auto) Neut # (Auto) Lymph # (Auto) [place] # (Auto) Eos # (Auto) Baso # (Auto) Puncture Site pCO2 pO2 HCO3 ABG pH ABG Total CO2 ABG O2 Saturation ABG Base Excess ABG Hemoglobin ABG Carboxyhemoglobin POC ABG HHb (Measured) ABG Methemoglobin Barry Test A-a O2 Difference Respiratory Index Hgb O2 Saturation FiO2 Sodium 139 Potassium 3.5 L Chloride 104 Carbon Dioxide 19 L Anion Gap 19 BUN 8 Creatinine 0.6 L Est GFR ( Amer) > 60 Est GFR (Non-Af Amer) > 60 POC Glucose (mg/dL) Random Glucose 61 L Calcium 8.8 Total Bilirubin 0.7 AST 27 ALT < 6 L Alkaline Phosphatase 67 Total Creatine Kinase 86 Total Protein 8.2 Albumin 4.1 Globulin 4.1 H Albumin/Globulin Ratio 1.0 Urine Color Urine Clarity Urine pH Ur Specific [place] Urine Protein Urine Glucose (UA) Urine Ketones Urine Blood Urine Nitrate Urine Bilirubin Urine Urobilinogen Ur Leukocyte Esterase Urine WBC (Auto) Urine RBC (Auto) Ur Squamous Epith Cells Salicylates < 1.0 Urine Opiates Screen Negative Urine Methadone Screen Negative Acetaminophen < 10.0 L Ur Barbiturates Screen Negative Ur Phencyclidine Scrn Negative Ur Amphetamines Screen Negative U Benzodiazepines Scrn Negative U Oth Cocaine Metabols Negative U Cannabinoids Screen Negative Alcohol, Quantitative < 10 09/28/17 09/28/17 13:45 14:45 WBC RBC Hgb Hct MCV MCH MCHC RDW Plt Count MPV Neut % (Auto) Lymph % (Auto) [place] % (Auto) Eos % (Auto) Baso % (Auto) Neut # (Auto) Lymph # (Auto) [place] # (Auto) Eos # (Auto) Baso # (Auto) Puncture Site Rradial pCO2 29 L pO2 128 H HCO3 18.0 L ABG pH 7.34 L ABG Total CO2 16.5 L ABG O2 Saturation 97.4 ABG Base Excess -8.9 L ABG Hemoglobin 12.2 ABG Carboxyhemoglobin 0.3 L POC ABG HHb (Measured) 2.6 ABG Methemoglobin 0.7 Barry Test Pos A-a O2 Difference -15.0 Respiratory Index -0.1 Hgb O2 Saturation 96.3 FiO2 21.0 Sodium Potassium Chloride Carbon Dioxide Anion Gap BUN Creatinine Est GFR ( Amer) Est GFR (Non-Af Amer) POC Glucose (mg/dL) 57 L Random Glucose Calcium Total Bilirubin AST ALT Alkaline Phosphatase Total Creatine Kinase Total Protein Albumin Globulin Albumin/Globulin Ratio Urine Color Urine Clarity Urine pH Ur Specific [place] Urine Protein Urine Glucose (UA) Urine Ketones Urine Blood Urine Nitrate Urine Bilirubin Urine Urobilinogen Ur Leukocyte Esterase Urine WBC (Auto) Urine RBC (Auto) Ur Squamous Epith Cells Salicylates Urine Opiates Screen Urine Methadone Screen Acetaminophen Ur Barbiturates Screen Ur Phencyclidine Scrn Ur Amphetamines Screen U Benzodiazepines Scrn U Oth Cocaine Metabols U Cannabinoids Screen Alcohol, Quantitative Assessment & Plan - Assessment and Plan (Free Text) Assessment: This is a 27 yo female, originally from [place], with 1. 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 -repeat ct neck -first head ct neg -cxr neg -eeg pending -ABG -EKG shows sinus tachycardia -repeat q 2 hrs for the first 6 hrs -if QRS > 100, give sodium bicarbonate -aspiration precautions -seizure precautions -poison control contacted. -monitor electrolytes -infusing IV fluids saline with dextrose -ICU consult placed. Dr. Awilda kincaid. recs appreciated. -25 ml IV dextrose and .5 mg IV ativan given in ER -blood cultures x 2 pending -urine culture pending -urine drug screen negative -alcohol < 10 -tylenol level neg -asa level negative -repeat general tox panel -serum and urine osmolality pending -no gastric lavage indicated at this time -psych consult. Dr. Tavares. recs appreciated. 2. GI/DVT ppx lovenox 40 mg sc daily -protonix 40 mg iv daily
[2017-09-28] MEDS ORDERED: WATER IVPB STA (15:38)
[2017-09-28] MEDS ORDERED: ACETYLCYSTEINE IVPB STA (15:38)
[2017-09-28] MEDS ORDERED: DEXTROSE 5% IVPB STA (15:38)
[2017-09-28] MEDS: Sodium Bicarbonate 8.4% 150 MEQ in Dextrose 5% In Water 1,000 ML IV SCH (15:43)
--- NOTE | 2017-09-28 15:46 | CT ---
PROCEDURE: CT Cervical Spine without contrast HISTORY: Concern for fracture. COMPARISON: None available. TECHNIQUE: Axial computed tomography images were obtained of the cervical spine without the use of intravenous contrast. Coronal and sagittal reformatted images were created and reviewed. Radiation dose: Total exam DLP = 246.29 mGy-cm. This CT exam was performed using one or more of the following dose reduction techniques: Automated exposure control, adjustment of the mA and/or kV according to patient size, and/or use of iterative reconstruction technique. FINDINGS: VERTEBRAE: No fracture. Normal alignment. No destructive bony lesion. DISCS/SPINAL CANAL/NEURAL FORAMINA: No significant central canal or neural foraminal stenosis. Discs heights are grossly preserved. PARASPINAL SOFT TISSUES: Unremarkable. OTHER FINDINGS: Heterogeneous appearance of the thyroid gland nonspecific. Thyroid ultrasound followup could be performed. IMPRESSION: No evidence of acute fractures.
[2017-09-28] MEDS ORDERED: DEXTROSE 5% IVPB ONE ×2 (17:00→21:00)
[2017-09-28] MEDS ORDERED: WATER IVPB ONE ×2 (17:00→21:00)
[2017-09-28] MEDS ORDERED: ACETYLCYSTEINE IVPB ONE ×2 (17:00→21:00)
[2017-09-28] MEDS: Vancomycin 1 gm/NS 200 ml 1 GM/200 ML BAG IVPB SCH (17:30)
[2017-09-28 17:39] LABS: VENOUS BLOOD GAS BASE EXCESS -8.6 mmol/L (0.0-2.0); VENOUS BLOOD GAS PCO2 37 mmHg (40-60); VENOUS BLOOD GAS PO2 35 mm/Hg (30-55); VENOUS BLOOD PH 7.28 (7.32-7.43)
[2017-09-28] MEDS: Dextrose 5%/0.9% NS 1,000 ML IV SCH (18:56)
[2017-09-28 20:17] LABS: VENOUS BLOOD GAS BASE EXCESS -5.7 mmol/L (0.0-2.0); VENOUS BLOOD GAS PCO2 31 mmHg (40-60); VENOUS BLOOD GAS PO2 41 mm/Hg (30-55); VENOUS BLOOD PH 7.38 (7.32-7.43)
[2017-09-28 20:29] LABS: BASO % 0.4 % (0.0-2.0); HEMOGLOBIN 13.2 g/dL (11.0-16.0); LYMPH # 0.4 K/uL (1.0-4.3); LYMPH % 3.9 % (20.0-40.0); MEAN CELL VOLUME 83.2 fL (81.0-99.0); MEAN CORPUSCULAR HEMOGLOBIN 27.5 pg (27.0-31.0); MEAN CORPUSCULAR HGB CONC 33.1 g/dL (33.0-37.0); MEAN PLATELET VOLUME 8.5 fL (7.2-11.7); MONO # 0.3 K/uL (0.0-0.8); NEUT # 9.2 K/uL (1.8-7.0); NEUT % 92.7 % (50.0-75.0); PLATELET COUNT 282 K/uL (130-400); RBC 4.79 Mil/uL (3.80-5.20); RED CELL DISTRIBUTION WIDTH 14.4 % (11.5-14.5); WHITE BLOOD COUNT 9.9 K/uL (4.8-10.8)
[2017-09-28 20:51] LABS: ALB/GLOB RATIO 1.3 (1.0-2.1); ALBUMIN 4.2 g/dL (3.5-5.0); ALT/SGPT 8 U/L (9-52); AST/SGOT 18 U/L (14-36); BLOOD UREA NITROGEN 6 mg/dL (7-17); CALCIUM 7.6 mg/dl (8.6-10.4); GFR AFRICAN-AMERICAN > 60; GFR NON-AFRICAN AMERICAN > 60
[2017-09-28] MEDS ORDERED: Potassium Phosphate 3 mmol/ml Inj IV ONE (20:52)
[2017-09-28] MEDS ORDERED: Potassium Phosphate 15 MMOLE in Sodium Chloride 0.9% 250 ML IV ONE (21:00)
[2017-09-28 21:15] LABS: LYMPHOCYTE 4 % (20-40); MONOCYTE 1 % (0-10); NEUTROPHIL 95 % (50-75); PLATELET ESTIMATE NORMAL (NORMAL); TOTAL CELLS COUNTED 100
[2017-09-29] MEDS: Sodium Bicarbonate 8.4% 150 MEQ in Dextrose 5% In Water 1,000 ML IV SCH (02:30)
[2017-09-29 05:40] LABS: VENOUS BLOOD GAS BASE EXCESS -0.2 mmol/L (0.0-2.0); VENOUS BLOOD GAS PCO2 29 mmHg (40-60); VENOUS BLOOD GAS PO2 27 mm/Hg (30-55); VENOUS BLOOD PH 7.49 (7.32-7.43)
[2017-09-29] MEDS: Vancomycin 1 gm/NS 200 ml 1 GM/200 ML BAG IVPB SCH (05:59)
[2017-09-29] MEDS: Dextrose 5%/0.9% NS 1,000 ML IV SCH ×2 (05:59→16:25)
[2017-09-29 06:21] LABS: BASO % 0.1 % (0.0-2.0); HEMOGLOBIN 12.5 g/dL (11.0-16.0); LYMPH # 1.1 K/uL (1.0-4.3); MEAN CELL VOLUME 82.7 fL (81.0-99.0); MEAN CORPUSCULAR HEMOGLOBIN 27.9 pg (27.0-31.0); MEAN CORPUSCULAR HGB CONC 33.7 g/dL (33.0-37.0); MEAN PLATELET VOLUME 8.7 fL (7.2-11.7); MONO # 1.1 K/uL (0.0-0.8); MONO % 6.6 % (0.0-10.0); NEUT # 14.1 K/uL (1.8-7.0); NEUT % 86.3 % (50.0-75.0); PLATELET COUNT 290 K/uL (130-400); RBC 4.47 Mil/uL (3.80-5.20); RED CELL DISTRIBUTION WIDTH 13.8 % (11.5-14.5); WHITE BLOOD COUNT 16.4 K/uL (4.8-10.8)
[2017-09-29 06:46] LABS: ALBUMIN 3.8 g/dL (3.5-5.0); ALT/SGPT < 6 U/L (9-52); AST/SGOT 17 U/L (14-36); BLOOD UREA NITROGEN 4 mg/dL (7-17); CALCIUM 7.9 mg/dl (8.6-10.4); GFR AFRICAN-AMERICAN > 60; GFR NON-AFRICAN AMERICAN > 60
[2017-09-29] MEDS ORDERED: Potassium Phosphate 15 MMOLE in Sodium Chloride 0.9% 250 ML IV ONE (07:30)
[2017-09-29 08:27] LABS: LYMPHOCYTE 8 % (20-40); MONOCYTE 3 % (0-10); NEUTROPHIL 89 % (50-75); PLATELET ESTIMATE NORMAL (NORMAL); TOTAL CELLS COUNTED 100
[2017-09-29] MEDS: Magnesium Sulfate 1 gm in D5W 1 GM/100 ML BAG IVPB SCH ×2 (08:39→09:54)
--- NOTE | 2017-09-29 10:05 | CP.CCUPN ---
<Tea Nowak - Last Filed: 09/29/17 10:15> CCU Subjective - Physician Review Subjective (Free Text): Patient seen and examined at bedside with Aunt and Uncle present. Patient understand bangladeshi but primarily speaks her language. She is oriented to place. She answers selected questions appropriately otherwise she responds in incomprehensible jargon. She is able to follow commands, move all 4 extremities , and sit herself up. She has a baseline tremor. CCU Objective - Vital Signs / Intake & Output Vital Signs (Last 4 hours): Vital Signs Temp Pulse Resp BP Pulse Ox 09/29/17 09:00 117 H 18 100 09/29/17 08:59 115/63 09/29/17 08:00 97.6 F 119 H 22 100 09/29/17 07:59 108/63 09/29/17 07:00 109 H 25 H 100 09/29/17 06:59 110 H 28 H 110/50 L 100 Intake and Output (Last 8hrs): Intake & Output 09/28/17 09/29/17 09/29/17 22:59 06:59 14:59 Intake Total 2414 2221 786 Output Total 6200 1700 400 Balance -3786 521 386 Weight 119 lb 0.794 oz 119 lb 0.794 oz Intake: Intake, IV Amount 2414 2221 786 Left Antecubital 800 800 262 Left Forearm 100 Right AC 2 650 925 300 Right Antecubital 964 496 124 Output: Urine 6200 1700 400 Urethral (Ijmenez) 4000 1700 400 Other: Voiding Method Indwelling Catheter - Physical Exam Head: Positive for: Atraumatic, Normocephalic Pupils: Positive for: PERRL Extroacular Muscles: Positive for: EOMI Conjunctiva: Positive for: Normal Mouth: Positive for: Moist Mucous Membranes Neck: Positive for: Normal Range of Motion. Negative for: Meningeal Signs, MIDLINE TENDERNESS, Paraspinal Tenderness, JVD, Lymphadenopathy Respiratory/Chest: Positive for: Clear to Auscultation. Negative for: Wheezes Cardiovascular: Positive for: Regular Rate and Rhythm, Normal S1, S2 Abdomen: Positive for: Normal Bowel Sounds. Negative for: Tenderness, Distention Upper Extremity: Positive for: Normal Inspection, Normal ROM, NORMAL PULSES, Neurovascularly Intact, Capillary Refill < 2s Lower Extremity: Positive for: Normal Inspection, NORMAL PULSES, Neurovascularly Intact, Capillary Refill < 2 s. Negative for: Edema, CALF TENDERNESS Neurological: Positive for: CN II-XII Intact Skin: Positive for: Warm, Dry Psychiatric: Positive for: Alert - Medications Active Medications: Active Medications Generic Name Dose Route Start Last Admin Trade Name Freq PRN Reason Stop Dose Admin Enoxaparin Sodium 40 mg 09/29/17 10:00 Lovenox SC DAILY IAN Acetylcysteine 5,900 mg/ 1,029.5 mls @ 64.344 mls/hr 09/28/17 21:00 09/28/17 22:02 Dextrose IVPB 09/29/17 12:59 64.344 mls/hr ONCE ONE Administration Vancomycin/Sodium Chloride 1 gm in 200 mls @ 133 mls/hr 09/28/17 17:00 05:59 Vancomycin 1 Gm/Ns 200 Ml IVPB 10/03/17 17:01 133 mls/hr Q12H IAN Administration Protocol Ceftriaxone Sodium 2 gm/ 100 mls @ 100 mls/hr 09/28/17 17:00 09/29/17 04:38 Sodium Chloride IVPB 100 mls/hr Q12H IAN Administration Protocol Levetiracetam 750 mg/ Dextrose 107.5 mls @ 420 mls/hr 09/29/17 09:00 IVPB Q12H IAN Dextrose/Sodium Chloride 1,000 mls @ 100 mls/hr 09/28/17 18:45 09/29/17 05:59 Dextrose 5%/0.9% Ns 1000 Ml IV Not Given .Q10H IAN Potassium Phosphate 15 mmole/ 255 mls @ 42.5 mls/hr 09/29/17 07:30 Sodium Chloride IV 09/29/17 13:29 ONCE ONE Magnesium Sulfate/Dextrose 1 gm in 100 mls @ 100 mls/hr 09/29/17 09:00 09:54 Magnesium Sulfate 1 Gm/100 Ml D5w IVPB 09/29/17 10:59 100 mls/hr Q1H IAN Administration Potassium Chloride 10 meq in 100 mls @ 100 mls/hr 09/29/17 08:15 09/29/17 09: 25 Potassium Chloride 10 Meq/100 Ml IVPB 09/29/17 12:14 100 mls/hr Q1H IAN Administration Pneumococcal Polyvalent Vaccine 0.5 ml 10/01/17 10:00 Pneumovax 23 Vaccine SC 10/01/17 10:01 .ONCE ONE Vitamin A 1 ea 09/29/17 10:00 Vitamin A & D Oint Ud Foilpak TOP BID IAN - Patient Studies Lab Studies: Lab Studies 09/29/17 09/29/17 09/29/17 Range/Units 09:10 07:01 06:14 WBC (4.8-10.8) K/uL RBC (3.80-5.20) Mil/uL Hgb (11.0-16.0) g/dL Hct (34.0-47.0) % MCV (81.0-99.0) fL MCH (27.0-31.0) pg MCHC (33.0-37.0) g/dL RDW (11.5-14.5) % Plt Count (130-400) K/uL MPV (7.2-11.7) fL Neut % (Auto) (50.0-75.0) % Lymph % (Auto) (20.0-40.0) % [place] % (Auto) (0.0-10.0) % Eos % (Auto) (0.0-4.0) % Baso % (Auto) (0.0-2.0) % Neut # (Auto) (1.8-7.0) K/uL Lymph # (Auto) (1.0-4.3) K/uL [place] # (Auto) (0.0-0.8) K/uL Eos # (Auto) (0.0-0.7) K/uL Baso # (Auto) (0.0-0.2) K/uL Neutrophils % (Manual) (50-75) % Lymphocytes % (Manual) (20-40) % Monocytes % (Manual) (0-10) % Platelet Estimate (NORMAL) RBC Morphology Puncture Site pCO2 (35-45) mm/Hg pO2 (80-100) mm/Hg HCO3 (21-28) mmol/L ABG pH (7.35-7.45) ABG Total CO2 (22-28) mmol/L ABG O2 Saturation (95-98) % ABG Base Excess (-2.0-3.0) mmol/L ABG Hemoglobin (11.7-17.4) g/dL ABG Carboxyhemoglobin (0.5-1.5) % POC ABG HHb (Measured) (0.0-5.0) % ABG Methemoglobin (0.0-3.0) % Barry Test VBG pH (7.32-7.43) VBG pCO2 (40-60) mmHg VBG HCO3 mmol/L VBG Total CO2 (22-28) mmol/L VBG O2 Sat (Calc) (40-65) % VBG Base Excess (0.0-2.0) mmol/L VBG Potassium (3.6-5.2) mmol/L A-a O2 Difference mm/Hg Respiratory Index Hgb O2 Saturation (95.0-98.0) % Glucose (65-105) mg/dl Lactate (0.7-2.1) mmol/L FiO2 % Crit Value Called To Crit Value Called By Crit Value Read Back Blood Gas Notified Time Sodium 139 (132-148) mmol/L Potassium 2.8 L (3.6-5.2) mmol/L Chloride 102 (98-107) mmol/L Carbon Dioxide 22 (22-30) mmol/L Anion Gap 18 (10-20) BUN 4 L (7-17) mg/dL Creatinine 0.5 L (0.7-1.2) mg/dL Est GFR ( Amer) > 60 Est GFR (Non-Af Amer) > 60 POC Glucose (mg/dL) (65-110) mg/dL Random Glucose 99 (65-105) mg/dL Serum Osmolality 295 (272-300) mosm/kg Lactic Acid (0.7-2.1) mmol/L Calcium 7.9 L (8.6-10.4) mg/dl Phosphorus 2.8 (2.5-4.5) mg/dL Magnesium 1.6 (1.6-2.3) mg/dL Total Bilirubin 0.4 (0.2-1.3) mg/dL AST 17 (14-36) U/L ALT < 6 L D (9-52) U/L Alkaline Phosphatase 43 (38-126) U/L Ammonia (9-33) umol/L Total Creatine Kinase (30-135) U/L Total Protein 7.4 (6.3-8.3) g/dL Albumin 3.8 (3.5-5.0) g/dL Globulin 3.6 (2.2-3.9) gm/dL Albumin/Globulin Ratio 1.0 (1.0-2.1) Procalcitonin (0.19-0.49) NG/ML Venous Blood Potassium (3.6-5.2) mmol/L Urine Color (YELLOW) Urine Clarity (Clear) Urine pH (5.0-8.0) Ur Specific [place] (1.003-1.030) Urine Protein (NEGATIVE) mg/dL Urine Glucose (UA) (Normal) mg/dL Urine Ketones (NEGATIVE) mg/dL Urine Blood (NEGATIVE) Urine Nitrate (NEGATIVE) Urine Bilirubin (NEGATIVE) Urine Urobilinogen (0.2-1.0) mg/dL Ur Leukocyte Esterase (Negative) Bernie/uL Urine WBC (Auto) (0-5) /hpf Urine RBC (Auto) (0-3) /hpf Ur Squamous Epith Cells (0-5) /hpf Urine Osmolality (300-1000) mosm/kg Salicylates mg/dL 1 Urine Opiates Screen (NEGATIVE) Urine Methadone Screen (NEGATIVE) Acetaminophen (10.0-30.0) ug/mL Ur Barbiturates Screen (NEGATIVE) Ur Phencyclidine Scrn (NEGATIVE) Ur Amphetamines Screen (NEGATIVE) U Benzodiazepines Scrn (NEGATIVE) U Oth Cocaine Metabols (NEGATIVE) U Cannabinoids Screen (NEGATIVE) Alcohol, Quantitative (0-10) mg/dl 09/29/17 09/29/17 09/29/17 Range/Units 06:12 05:48 05:35 WBC 16.4 H D (4.8-10.8) K/uL RBC 4.47 (3.80-5.20) Mil/uL Hgb 12.5 (11.0-16.0) g/dL Hct 37.0 (34.0-47.0) % MCV 82.7 (81.0-99.0) fL MCH 27.9 (27.0-31.0) pg MCHC 33.7 (33.0-37.0) g/dL RDW 13.8 (11.5-14.5) % Plt Count 290 (130-400) K/uL MPV 8.7 (7.2-11.7) fL Neut % (Auto) 86.3 H (50.0-75.0) % Lymph % (Auto) 7.0 L (20.0-40.0) % [place] % (Auto) 6.6 (0.0-10.0) % Eos % (Auto) 0.0 (0.0-4.0) % Baso % (Auto) 0.1 (0.0-2.0) % Neut # (Auto) 14.1 H (1.8-7.0) K/uL Lymph # (Auto) 1.1 (1.0-4.3) K/uL [place] # (Auto) 1.1 H (0.0-0.8) K/uL Eos # (Auto) 0.0 (0.0-0.7) K/uL Baso # (Auto) 0.0 (0.0-0.2) K/uL Neutrophils % (Manual) 89 H (50-75) % Lymphocytes % (Manual) 8 L (20-40) % Monocytes % (Manual) 3 (0-10) % Platelet Estimate Normal (NORMAL) RBC Morphology Normal Puncture Site pCO2 (35-45) mm/Hg pO2 27 L (80-100) mm/Hg HCO3 (21-28) mmol/L ABG pH (7.35-7.45) ABG Total CO2 (22-28) mmol/L ABG O2 Saturation (95-98) % ABG Base Excess (-2.0-3.0) mmol/L ABG Hemoglobin (11.7-17.4) g/dL ABG Carboxyhemoglobin (0.5-1.5) % POC ABG HHb (Measured) (0.0-5.0) % ABG Methemoglobin (0.0-3.0) % Barry Test VBG pH 7.49 H (7.32-7.43) VBG pCO2 29 L (40-60) mmHg VBG HCO3 23.7 mmol/L VBG Total CO2 23.0 (22-28) mmol/L VBG O2 Sat (Calc) 56.9 (40-65) % VBG Base Excess -0.2 L (0.0-2.0) mmol/L VBG Potassium 2.5 L* (3.6-5.2) mmol/L A-a O2 Difference mm/Hg Respiratory Index Hgb O2 Saturation (95.0-98.0) % Glucose 110 H (65-105) mg/dl Lactate 1.5 (0.7-2.1) mmol/L FiO2 % Crit Value Called To Reginald sanchez rn Crit Value Called By Coleman resistance welder Crit Value Read Back Y Blood Gas Notified Time 540 Sodium 137.0 (132-148) mmol/L Potassium (3.6-5.2) mmol/L Chloride 104.0 (98-107) mmol/L Carbon Dioxide (22-30) mmol/L Anion Gap (10-20) BUN (7-17) mg/dL Creatinine (0.7-1.2) mg/dL Est GFR ( Amer) Est GFR (Non-Af Amer) POC Glucose (mg/dL) 119 H (65-110) mg/dL Random Glucose (65-105) mg/dL Serum Osmolality (272-300) mosm/kg Lactic Acid (0.7-2.1) mmol/L Calcium (8.6-10.4) mg/dl Phosphorus (2.5-4.5) mg/dL Magnesium (1.6-2.3) mg/dL Total Bilirubin (0.2-1.3) mg/dL AST (14-36) U/L ALT (9-52) U/L Alkaline Phosphatase (38-126) U/L Ammonia (9-33) umol/L Total Creatine Kinase (30-135) U/L Total Protein (6.3-8.3) g/dL Albumin (3.5-5.0) g/dL Globulin (2.2-3.9) gm/dL Albumin/Globulin Ratio (1.0-2.1) Procalcitonin (0.19-0.49) NG/ML Venous Blood Potassium 2.5 L* (3.6-5.2) mmol/L Urine Color (YELLOW) Urine Clarity (Clear) Urine pH (5.0-8.0) Ur Specific [place] (1.003-1.030) Urine Protein (NEGATIVE) mg/dL Urine Glucose (UA) (Normal) mg/dL Urine Ketones (NEGATIVE) mg/dL Urine Blood (NEGATIVE) Urine Nitrate (NEGATIVE) Urine Bilirubin (NEGATIVE) Urine Urobilinogen (0.2-1.0) mg/dL Ur Leukocyte Esterase (Negative) Bernie/uL Urine WBC (Auto) (0-5) /hpf Urine RBC (Auto) (0-3) /hpf Ur Squamous Epith Cells (0-5) /hpf Urine Osmolality (300-1000) mosm/kg Salicylates mg/dL 1 Urine Opiates Screen (NEGATIVE) Urine Methadone Screen (NEGATIVE) Acetaminophen (10.0-30.0) ug/mL Ur Barbiturates Screen (NEGATIVE) Ur Phencyclidine Scrn (NEGATIVE) Ur Amphetamines Screen (NEGATIVE) U Benzodiazepines Scrn (NEGATIVE) U Oth Cocaine Metabols (NEGATIVE) U Cannabinoids Screen (NEGATIVE) Alcohol, Quantitative (0-10) mg/dl 09/28/17 09/28/17 09/28/17 Range/Units 23:40 20:20 20:20 WBC 9.9 D (4.8-10.8) K/uL RBC 4.79 (3.80-5.20) Mil/uL Hgb 13.2 (11.0-16.0) g/dL Hct 39.9 (34.0-47.0) % MCV 83.2 (81.0-99.0) fL MCH 27.5 (27.0-31.0) pg MCHC 33.1 (33.0-37.0) g/dL RDW 14.4 (11.5-14.5) % Plt Count 282 (130-400) K/uL MPV 8.5 (7.2-11.7) fL Neut % (Auto) 92.7 H (50.0-75.0) % Lymph % (Auto) 3.9 L (20.0-40.0) % [place] % (Auto) 3.0 (0.0-10.0) % Eos % (Auto) 0.0 (0.0-4.0) % Baso % (Auto) 0.4 (0.0-2.0) % Neut # (Auto) 9.2 H (1.8-7.0) K/uL Lymph # (Auto) 0.4 L (1.0-4.3) K/uL [place] # (Auto) 0.3 (0.0-0.8) K/uL Eos # (Auto) 0.0 (0.0-0.7) K/uL Baso # (Auto) 0.0 (0.0-0.2) K/uL Neutrophils % (Manual) 95 H (50-75) % Lymphocytes % (Manual) 4 L (20-40) % Monocytes % (Manual) 1 (0-10) % Platelet Estimate Normal (NORMAL) RBC Morphology Puncture Site pCO2 (35-45) mm/Hg pO2 (80-100) mm/Hg HCO3 (21-28) mmol/L ABG pH (7.35-7.45) ABG Total CO2 (22-28) mmol/L ABG O2 Saturation (95-98) % ABG Base Excess (-2.0-3.0) mmol/L ABG Hemoglobin (11.7-17.4) g/dL ABG Carboxyhemoglobin (0.5-1.5) % POC ABG HHb (Measured) (0.0-5.0) % ABG Methemoglobin (0.0-3.0) % Barry Test VBG pH (7.32-7.43) VBG pCO2 (40-60) mmHg VBG HCO3 mmol/L VBG Total CO2 (22-28) mmol/L VBG O2 Sat (Calc) (40-65) % VBG Base Excess (0.0-2.0) mmol/L VBG Potassium (3.6-5.2) mmol/L A-a O2 Difference mm/Hg Respiratory Index Hgb O2 Saturation (95.0-98.0) % Glucose (65-105) mg/dl Lactate (0.7-2.1) mmol/L FiO2 % Crit Value Called To Crit Value Called By Crit Value Read Back Blood Gas Notified Time Sodium (132-148) mmol/L Potassium (3.6-5.2) mmol/L Chloride (98-107) mmol/L Carbon Dioxide (22-30) mmol/L Anion Gap (10-20) BUN (7-17) mg/dL Creatinine (0.7-1.2) mg/dL Est GFR ( Amer) Est GFR (Non-Af Amer) POC Glucose (mg/dL) 105 (65-110) mg/dL Random Glucose (65-105) mg/dL Serum Osmolality (272-300) mosm/kg Lactic Acid (0.7-2.1) mmol/L Calcium (8.6-10.4) mg/dl Phosphorus (2.5-4.5) mg/dL Magnesium (1.6-2.3) mg/dL Total Bilirubin (0.2-1.3) mg/dL AST (14-36) U/L ALT (9-52) U/L Alkaline Phosphatase (38-126) U/L Ammonia (9-33) umol/L Total Creatine Kinase (30-135) U/L Total Protein (6.3-8.3) g/dL Albumin (3.5-5.0) g/dL Globulin (2.2-3.9) gm/dL Albumin/Globulin Ratio (1.0-2.1) Procalcitonin < 0.05 L (0.19-0.49) NG/ML Venous Blood Potassium (3.6-5.2) mmol/L Urine Color (YELLOW) Urine Clarity (Clear) Urine pH (5.0-8.0) Ur Specific [place] (1.003-1.030) Urine Protein (NEGATIVE) mg/dL Urine Glucose (UA) (Normal) mg/dL Urine Ketones (NEGATIVE) mg/dL Urine Blood (NEGATIVE) Urine Nitrate (NEGATIVE) Urine Bilirubin (NEGATIVE) Urine Urobilinogen (0.2-1.0) mg/dL Ur Leukocyte Esterase (Negative) Bernie/uL Urine WBC (Auto) (0-5) /hpf Urine RBC (Auto) (0-3) /hpf Ur Squamous Epith Cells (0-5) /hpf Urine Osmolality (300-1000) mosm/kg Salicylates mg/dL 1 Urine Opiates Screen (NEGATIVE) Urine Methadone Screen (NEGATIVE) Acetaminophen (10.0-30.0) ug/mL Ur Barbiturates Screen (NEGATIVE) Ur Phencyclidine Scrn (NEGATIVE) Ur Amphetamines Screen (NEGATIVE) U Benzodiazepines Scrn (NEGATIVE) U Oth Cocaine Metabols (NEGATIVE) U Cannabinoids Screen (NEGATIVE) Alcohol, Quantitative (0-10) mg/dl 09/28/17 09/28/17 09/28/17 Range/Units 20:20 20:14 20:07 WBC (4.8-10.8) K/uL RBC (3.80-5.20) Mil/uL Hgb (11.0-16.0) g/dL Hct (34.0-47.0) % MCV (81.0-99.0) fL MCH (27.0-31.0) pg MCHC (33.0-37.0) g/dL RDW (11.5-14.5) % Plt Count (130-400) K/uL MPV (7.2-11.7) fL Neut % (Auto) (50.0-75.0) % Lymph % (Auto) (20.0-40.0) % [place] % (Auto) (0.0-10.0) % Eos % (Auto) (0.0-4.0) % Baso % (Auto) (0.0-2.0) % Neut # (Auto) (1.8-7.0) K/uL Lymph # (Auto) (1.0-4.3) K/uL [place] # (Auto) (0.0-0.8) K/uL Eos # (Auto) (0.0-0.7) K/uL Baso # (Auto) (0.0-0.2) K/uL Neutrophils % (Manual) (50-75) % Lymphocytes % (Manual) (20-40) % Monocytes % (Manual) (0-10) % Platelet Estimate (NORMAL) RBC Morphology Puncture Site pCO2 (35-45) mm/Hg pO2 41 (80-100) mm/Hg HCO3 (21-28) mmol/L ABG pH (7.35-7.45) ABG Total CO2 (22-28) mmol/L ABG O2 Saturation (95-98) % ABG Base Excess (-2.0-3.0) mmol/L ABG Hemoglobin (11.7-17.4) g/dL ABG Carboxyhemoglobin (0.5-1.5) % POC ABG HHb (Measured) (0.0-5.0) % ABG Methemoglobin (0.0-3.0) % Barry Test VBG pH 7.38 (7.32-7.43) VBG pCO2 31 L (40-60) mmHg VBG HCO3 19.9 mmol/L VBG Total CO2 19.3 L (22-28) mmol/L VBG O2 Sat (Calc) 80.7 H (40-65) % VBG Base Excess -5.7 L (0.0-2.0) mmol/L VBG Potassium 3.1 L (3.6-5.2) mmol/L A-a O2 Difference mm/Hg Respiratory Index Hgb O2 Saturation (95.0-98.0) % Glucose 162 H (65-105) mg/dl Lactate 2.4 H (0.7-2.1) mmol/L FiO2 % Crit Value Called To Crit Value Called By Crit Value Read Back Blood Gas Notified Time Sodium 136 134.0 (132-148) mmol/L Potassium 3.3 L (3.6-5.2) mmol/L Chloride 100 100.0 (98-107) mmol/L Carbon Dioxide 17 L (22-30) mmol/L Anion Gap 22 H (10-20) BUN 6 L (7-17) mg/dL Creatinine 0.5 L (0.7-1.2) mg/dL Est GFR ( Amer) > 60 Est GFR (Non-Af Amer) > 60 POC Glucose (mg/dL) 185 H (65-110) mg/dL Random Glucose 157 H (65-105) mg/dL Serum Osmolality (272-300) mosm/kg Lactic Acid (0.7-2.1) mmol/L Calcium 7.6 L (8.6-10.4) mg/dl Phosphorus 1.0 L* (2.5-4.5) mg/dL Magnesium 1.7 (1.6-2.3) mg/dL Total Bilirubin 0.4 (0.2-1.3) mg/dL AST 18 (14-36) U/L ALT 8 L D (9-52) U/L Alkaline Phosphatase < 20 L D (38-126) U/L Ammonia (9-33) umol/L Total Creatine Kinase (30-135) U/L Total Protein 7.5 (6.3-8.3) g/dL Albumin 4.2 (3.5-5.0) g/dL Globulin 3.3 (2.2-3.9) gm/dL Albumin/Globulin Ratio 1.3 (1.0-2.1) Procalcitonin (0.19-0.49) NG/ML Venous Blood Potassium 3.1 L (3.6-5.2) mmol/L Urine Color (YELLOW) Urine Clarity (Clear) Urine pH (5.0-8.0) Ur Specific [place] (1.003-1.030) Urine Protein (NEGATIVE) mg/dL Urine Glucose (UA) (Normal) mg/dL Urine Ketones (NEGATIVE) mg/dL Urine Blood (NEGATIVE) Urine Nitrate (NEGATIVE) Urine Bilirubin (NEGATIVE) Urine Urobilinogen (0.2-1.0) mg/dL Ur Leukocyte Esterase (Negative) Bernie/uL Urine WBC (Auto) (0-5) /hpf Urine RBC (Auto) (0-3) /hpf Ur Squamous Epith Cells (0-5) /hpf Urine Osmolality (300-1000) mosm/kg Salicylates mg/dL 1 Urine Opiates Screen (NEGATIVE) Urine Methadone Screen (NEGATIVE) Acetaminophen (10.0-30.0) ug/mL Ur Barbiturates Screen (NEGATIVE) Ur Phencyclidine Scrn (NEGATIVE) Ur Amphetamines Screen (NEGATIVE) U Benzodiazepines Scrn (NEGATIVE) U Oth Cocaine Metabols (NEGATIVE) U Cannabinoids Screen (NEGATIVE) Alcohol, Quantitative (0-10) mg/dl 09/28/17 09/28/17 09/28/17 Range/Units 17:31 16:48 16:26 WBC (4.8-10.8) K/uL RBC (3.80-5.20) Mil/uL Hgb (11.0-16.0) g/dL Hct (34.0-47.0) % MCV (81.0-99.0) fL MCH (27.0-31.0) pg MCHC (33.0-37.0) g/dL RDW (11.5-14.5) % Plt Count (130-400) K/uL MPV (7.2-11.7) fL Neut % (Auto) (50.0-75.0) % Lymph % (Auto) (20.0-40.0) % [place] % (Auto) (0.0-10.0) % Eos % (Auto) (0.0-4.0) % Baso % (Auto) (0.0-2.0) % Neut # (Auto) (1.8-7.0) K/uL Lymph # (Auto) (1.0-4.3) K/uL [place] # (Auto) (0.0-0.8) K/uL Eos # (Auto) (0.0-0.7) K/uL Baso # (Auto) (0.0-0.2) K/uL Neutrophils % (Manual) (50-75) % Lymphocytes % (Manual) (20-40) % Monocytes % (Manual) (0-10) % Platelet Estimate (NORMAL) RBC Morphology Puncture Site pCO2 (35-45) mm/Hg pO2 35 (80-100) mm/Hg HCO3 (21-28) mmol/L ABG pH (7.35-7.45) ABG Total CO2 (22-28) mmol/L ABG O2 Saturation (95-98) % ABG Base Excess (-2.0-3.0) mmol/L ABG Hemoglobin (11.7-17.4) g/dL ABG Carboxyhemoglobin (0.5-1.5) % POC ABG HHb (Measured) (0.0-5.0) % ABG Methemoglobin (0.0-3.0) % Barry Test VBG pH 7.28 L (7.32-7.43) VBG pCO2 37 L (40-60) mmHg VBG HCO3 17.2 mmol/L VBG Total CO2 18.5 L (22-28) mmol/L VBG O2 Sat (Calc) 66.6 H (40-65) % VBG Base Excess -8.6 L (0.0-2.0) mmol/L VBG Potassium 5.0 (3.6-5.2) mmol/L A-a O2 Difference mm/Hg Respiratory Index Hgb O2 Saturation (95.0-98.0) % Glucose 241 H (65-105) mg/dl Lactate 4.7 H* (0.7-2.1) mmol/L FiO2 % Crit Value Called To Dr. kincaid Crit Value Called By Effie Crit Value Read Back Y Blood Gas Notified Time 173 Sodium 137.0 (132-148) mmol/L Potassium (3.6-5.2) mmol/L Chloride 100.0 (98-107) mmol/L Carbon Dioxide (22-30) mmol/L Anion Gap (10-20) BUN (7-17) mg/dL Creatinine (0.7-1.2) mg/dL Est GFR ( Amer) Est GFR (Non-Af Amer) POC Glucose (mg/dL) 237 H (65-110) mg/dL Random Glucose (65-105) mg/dL Serum Osmolality 294 (272-300) mosm/kg Lactic Acid (0.7-2.1) mmol/L Calcium (8.6-10.4) mg/dl Phosphorus (2.5-4.5) mg/dL Magnesium (1.6-2.3) mg/dL Total Bilirubin (0.2-1.3) mg/dL AST (14-36) U/L ALT (9-52) U/L Alkaline Phosphatase (38-126) U/L Ammonia (9-33) umol/L Total Creatine Kinase (30-135) U/L Total Protein (6.3-8.3) g/dL Albumin (3.5-5.0) g/dL Globulin (2.2-3.9) gm/dL Albumin/Globulin Ratio (1.0-2.1) Procalcitonin (0.19-0.49) NG/ML Venous Blood Potassium 5.0 (3.6-5.2) mmol/L Urine Color (YELLOW) Urine Clarity (Clear) Urine pH (5.0-8.0) Ur Specific [place] (1.003-1.030) Urine Protein (NEGATIVE) mg/dL Urine Glucose (UA) (Normal) mg/dL Urine Ketones (NEGATIVE) mg/dL Urine Blood (NEGATIVE) Urine Nitrate (NEGATIVE) Urine Bilirubin (NEGATIVE) Urine Urobilinogen (0.2-1.0) mg/dL Ur Leukocyte Esterase (Negative) Bernie/uL Urine WBC (Auto) (0-5) /hpf Urine RBC (Auto) (0-3) /hpf Ur Squamous Epith Cells (0-5) /hpf Urine Osmolality (300-1000) mosm/kg Salicylates mg/dL 1 Urine Opiates Screen (NEGATIVE) Urine Methadone Screen (NEGATIVE) Acetaminophen (10.0-30.0) ug/mL Ur Barbiturates Screen (NEGATIVE) Ur Phencyclidine Scrn (NEGATIVE) Ur Amphetamines Screen (NEGATIVE) U Benzodiazepines Scrn (NEGATIVE) U Oth Cocaine Metabols (NEGATIVE) U Cannabinoids Screen (NEGATIVE) Alcohol, Quantitative (0-10) mg/dl 09/28/17 09/28/17 09/28/17 Range/Units 15:20 15:20 15:14 WBC (4.8-10.8) K/uL RBC (3.80-5.20) Mil/uL Hgb (11.0-16.0) g/dL Hct (34.0-47.0) % MCV (81.0-99.0) fL MCH (27.0-31.0) pg MCHC (33.0-37.0) g/dL RDW (11.5-14.5) % Plt Count (130-400) K/uL MPV (7.2-11.7) fL Neut % (Auto) (50.0-75.0) % Lymph % (Auto) (20.0-40.0) % [place] % (Auto) (0.0-10.0) % Eos % (Auto) (0.0-4.0) % Baso % (Auto) (0.0-2.0) % Neut # (Auto) (1.8-7.0) K/uL Lymph # (Auto) (1.0-4.3) K/uL [place] # (Auto) (0.0-0.8) K/uL Eos # (Auto) (0.0-0.7) K/uL Baso # (Auto) (0.0-0.2) K/uL Neutrophils % (Manual) (50-75) % Lymphocytes % (Manual) (20-40) % Monocytes % (Manual) (0-10) % Platelet Estimate (NORMAL) RBC Morphology Puncture Site pCO2 (35-45) mm/Hg pO2 (80-100) mm/Hg HCO3 (21-28) mmol/L ABG pH (7.35-7.45) ABG Total CO2 (22-28) mmol/L ABG O2 Saturation (95-98) % ABG Base Excess (-2.0-3.0) mmol/L ABG Hemoglobin (11.7-17.4) g/dL ABG Carboxyhemoglobin (0.5-1.5) % POC ABG HHb (Measured) (0.0-5.0) % ABG Methemoglobin (0.0-3.0) % Barry Test VBG pH (7.32-7.43) VBG pCO2 (40-60) mmHg VBG HCO3 mmol/L VBG Total CO2 (22-28) mmol/L VBG O2 Sat (Calc) (40-65) % VBG Base Excess (0.0-2.0) mmol/L VBG Potassium (3.6-5.2) mmol/L A-a O2 Difference mm/Hg Respiratory Index Hgb O2 Saturation (95.0-98.0) % Glucose (65-105) mg/dl Lactate (0.7-2.1) mmol/L FiO2 % Crit Value Called To Crit Value Called By Crit Value Read Back Blood Gas Notified Time Sodium (132-148) mmol/L Potassium (3.6-5.2) mmol/L Chloride (98-107) mmol/L Carbon Dioxide (22-30) mmol/L Anion Gap (10-20) BUN (7-17) mg/dL Creatinine (0.7-1.2) mg/dL Est GFR ( Amer) Est GFR (Non-Af Amer) POC Glucose (mg/dL) 214 H (65-110) mg/dL Random Glucose (65-105) mg/dL Serum Osmolality (272-300) mosm/kg Lactic Acid 3.5 H (0.7-2.1) mmol/L Calcium (8.6-10.4) mg/dl Phosphorus (2.5-4.5) mg/dL Magnesium (1.6-2.3) mg/dL Total Bilirubin (0.2-1.3) mg/dL AST (14-36) U/L ALT (9-52) U/L Alkaline Phosphatase (38-126) U/L Ammonia (9-33) umol/L Total Creatine Kinase (30-135) U/L Total Protein (6.3-8.3) g/dL Albumin (3.5-5.0) g/dL Globulin (2.2-3.9) gm/dL Albumin/Globulin Ratio (1.0-2.1) Procalcitonin (0.19-0.49) NG/ML Venous Blood Potassium (3.6-5.2) mmol/L Urine Color (YELLOW) Urine Clarity (Clear) Urine pH (5.0-8.0) Ur Specific [place] (1.003-1.030) Urine Protein (NEGATIVE) mg/dL Urine Glucose (UA) (Normal) mg/dL Urine Ketones (NEGATIVE) mg/dL Urine Blood (NEGATIVE) Urine Nitrate (NEGATIVE) Urine Bilirubin (NEGATIVE) Urine Urobilinogen (0.2-1.0) mg/dL Ur Leukocyte Esterase (Negative) Bernie/uL Urine WBC (Auto) (0-5) /hpf Urine RBC (Auto) (0-3) /hpf Ur Squamous Epith Cells (0-5) /hpf Urine Osmolality 291 L (300-1000) mosm/kg Salicylates mg/dL 1 Urine Opiates Screen (NEGATIVE) Urine Methadone Screen (NEGATIVE) Acetaminophen (10.0-30.0) ug/mL Ur Barbiturates Screen (NEGATIVE) Ur Phencyclidine Scrn (NEGATIVE) Ur Amphetamines Screen (NEGATIVE) U Benzodiazepines Scrn (NEGATIVE) U Oth Cocaine Metabols (NEGATIVE) U Cannabinoids Screen (NEGATIVE) Alcohol, Quantitative (0-10) mg/dl 09/28/17 09/28/17 09/28/17 Range/Units 14:47 14:45 14:24 WBC (4.8-10.8) K/uL RBC (3.80-5.20) Mil/uL Hgb (11.0-16.0) g/dL Hct (34.0-47.0) % MCV (81.0-99.0) fL MCH (27.0-31.0) pg MCHC (33.0-37.0) g/dL RDW (11.5-14.5) % Plt Count (130-400) K/uL MPV (7.2-11.7) fL Neut % (Auto) (50.0-75.0) % Lymph % (Auto) (20.0-40.0) % [place] % (Auto) (0.0-10.0) % Eos % (Auto) (0.0-4.0) % Baso % (Auto) (0.0-2.0) % Neut # (Auto) (1.8-7.0) K/uL Lymph # (Auto) (1.0-4.3) K/uL [place] # (Auto) (0.0-0.8) K/uL Eos # (Auto) (0.0-0.7) K/uL Baso # (Auto) (0.0-0.2) K/uL Neutrophils % (Manual) (50-75) % Lymphocytes % (Manual) (20-40) % Monocytes % (Manual) (0-10) % Platelet Estimate (NORMAL) RBC Morphology Puncture Site pCO2 (35-45) mm/Hg pO2 (80-100) mm/Hg HCO3 (21-28) mmol/L ABG pH (7.35-7.45) ABG Total CO2 (22-28) mmol/L ABG O2 Saturation (95-98) % ABG Base Excess (-2.0-3.0) mmol/L ABG Hemoglobin (11.7-17.4) g/dL ABG Carboxyhemoglobin (0.5-1.5) % POC ABG HHb (Measured) (0.0-5.0) % ABG Methemoglobin (0.0-3.0) % Barry Test VBG pH (7.32-7.43) VBG pCO2 (40-60) mmHg VBG HCO3 mmol/L VBG Total CO2 (22-28) mmol/L VBG O2 Sat (Calc) (40-65) % VBG Base Excess (0.0-2.0) mmol/L VBG Potassium (3.6-5.2) mmol/L A-a O2 Difference mm/Hg Respiratory Index Hgb O2 Saturation (95.0-98.0) % Glucose (65-105) mg/dl Lactate (0.7-2.1) mmol/L FiO2 % Crit Value Called To Crit Value Called By Crit Value Read Back Blood Gas Notified Time Sodium (132-148) mmol/L Potassium (3.6-5.2) mmol/L Chloride (98-107) mmol/L Carbon Dioxide (22-30) mmol/L Anion Gap (10-20) BUN (7-17) mg/dL Creatinine (0.7-1.2) mg/dL Est GFR ( Amer) Est GFR (Non-Af Amer) POC Glucose (mg/dL) 60 L 57 L (65-110) mg/dL Random Glucose (65-105) mg/dL Serum Osmolality (272-300) mosm/kg Lactic Acid (0.7-2.1) mmol/L Calcium (8.6-10.4) mg/dl Phosphorus (2.5-4.5) mg/dL Magnesium (1.6-2.3) mg/dL Total Bilirubin (0.2-1.3) mg/dL AST (14-36) U/L ALT (9-52) U/L Alkaline Phosphatase (38-126) U/L Ammonia < 9 L (9-33) umol/L Total Creatine Kinase (30-135) U/L Total Protein (6.3-8.3) g/dL Albumin (3.5-5.0) g/dL Globulin (2.2-3.9) gm/dL Albumin/Globulin Ratio (1.0-2.1) Procalcitonin (0.19-0.49) NG/ML Venous Blood Potassium (3.6-5.2) mmol/L Urine Color (YELLOW) Urine Clarity (Clear) Urine pH (5.0-8.0) Ur Specific [place] (1.003-1.030) Urine Protein (NEGATIVE) mg/dL Urine Glucose (UA) (Normal) mg/dL Urine Ketones (NEGATIVE) mg/dL Urine Blood (NEGATIVE) Urine Nitrate (NEGATIVE) Urine Bilirubin (NEGATIVE) Urine Urobilinogen (0.2-1.0) mg/dL Ur Leukocyte Esterase (Negative) Bernie/uL Urine WBC (Auto) (0-5) /hpf Urine RBC (Auto) (0-3) /hpf Ur Squamous Epith Cells (0-5) /hpf Urine Osmolality (300-1000) mosm/kg Salicylates mg/dL 1 Urine Opiates Screen (NEGATIVE) Urine Methadone Screen (NEGATIVE) Acetaminophen (10.0-30.0) ug/mL Ur Barbiturates Screen (NEGATIVE) Ur Phencyclidine Scrn (NEGATIVE) Ur Amphetamines Screen (NEGATIVE) U Benzodiazepines Scrn (NEGATIVE) U Oth Cocaine Metabols (NEGATIVE) U Cannabinoids Screen (NEGATIVE) Alcohol, Quantitative (0-10) mg/dl 09/28/17 09/28/17 09/28/17 Range/Units 13:45 12:19 12:19 WBC (4.8-10.8) K/uL RBC (3.80-5.20) Mil/uL Hgb (11.0-16.0) g/dL Hct (34.0-47.0) % MCV (81.0-99.0) fL MCH (27.0-31.0) pg MCHC (33.0-37.0) g/dL RDW (11.5-14.5) % Plt Count (130-400) K/uL MPV (7.2-11.7) fL Neut % (Auto) (50.0-75.0) % Lymph % (Auto) (20.0-40.0) % [place] % (Auto) (0.0-10.0) % Eos % (Auto) (0.0-4.0) % Baso % (Auto) (0.0-2.0) % Neut # (Auto) (1.8-7.0) K/uL Lymph # (Auto) (1.0-4.3) K/uL [place] # (Auto) (0.0-0.8) K/uL Eos # (Auto) (0.0-0.7) K/uL Baso # (Auto) (0.0-0.2) K/uL Neutrophils % (Manual) (50-75) % Lymphocytes % (Manual) (20-40) % Monocytes % (Manual) (0-10) % Platelet Estimate (NORMAL) RBC Morphology Puncture Site Rradial pCO2 29 L (35-45) mm/Hg pO2 128 H (80-100) mm/Hg HCO3 18.0 L (21-28) mmol/L ABG pH 7.34 L (7.35-7.45) ABG Total CO2 16.5 L (22-28) mmol/L ABG O2 Saturation 97.4 (95-98) % ABG Base Excess -8.9 L (-2.0-3.0) mmol/L ABG Hemoglobin 12.2 (11.7-17.4) g/dL ABG Carboxyhemoglobin 0.3 L (0.5-1.5) % POC ABG HHb (Measured) 2.6 (0.0-5.0) % ABG Methemoglobin 0.7 (0.0-3.0) % Barry Test Pos VBG pH (7.32-7.43) VBG pCO2 (40-60) mmHg VBG HCO3 mmol/L VBG Total CO2 (22-28) mmol/L VBG O2 Sat (Calc) (40-65) % VBG Base Excess (0.0-2.0) mmol/L VBG Potassium (3.6-5.2) mmol/L A-a O2 Difference -15.0 mm/Hg Respiratory Index -0.1 Hgb O2 Saturation 96.3 (95.0-98.0) % Glucose (65-105) mg/dl Lactate (0.7-2.1) mmol/L FiO2 21.0 % Crit Value Called To Crit Value Called By Crit Value Read Back Blood Gas Notified Time Sodium (132-148) mmol/L Potassium (3.6-5.2) mmol/L Chloride (98-107) mmol/L Carbon Dioxide (22-30) mmol/L Anion Gap (10-20) BUN (7-17) mg/dL Creatinine (0.7-1.2) mg/dL Est GFR ( Amer) Est GFR (Non-Af Amer) POC Glucose (mg/dL) (65-110) mg/dL Random Glucose (65-105) mg/dL Serum Osmolality (272-300) mosm/kg Lactic Acid (0.7-2.1) mmol/L Calcium (8.6-10.4) mg/dl Phosphorus (2.5-4.5) mg/dL Magnesium (1.6-2.3) mg/dL Total Bilirubin (0.2-1.3) mg/dL AST (14-36) U/L ALT (9-52) U/L Alkaline Phosphatase (38-126) U/L Ammonia (9-33) umol/L Total Creatine Kinase (30-135) U/L Total Protein (6.3-8.3) g/dL Albumin (3.5-5.0) g/dL Globulin (2.2-3.9) gm/dL Albumin/Globulin Ratio (1.0-2.1) Procalcitonin (0.19-0.49) NG/ML Venous Blood Potassium (3.6-5.2) mmol/L Urine Color (YELLOW) Urine Clarity (Clear) Urine pH (5.0-8.0) Ur Specific [place] (1.003-1.030) Urine Protein (NEGATIVE) mg/dL Urine Glucose (UA) (Normal) mg/dL Urine Ketones (NEGATIVE) mg/dL Urine Blood (NEGATIVE) Urine Nitrate (NEGATIVE) Urine Bilirubin (NEGATIVE) Urine Urobilinogen (0.2-1.0) mg/dL Ur Leukocyte Esterase (Negative) Bernie/uL Urine WBC (Auto) (0-5) /hpf Urine RBC (Auto) (0-3) /hpf Ur Squamous Epith Cells (0-5) /hpf Urine Osmolality (300-1000) mosm/kg Salicylates < 1.0 mg/dL 1 Urine Opiates Screen Negative (NEGATIVE) Urine Methadone Screen Negative (NEGATIVE) Acetaminophen < 10.0 L (10.0-30.0) ug/mL Ur Barbiturates Screen Negative (NEGATIVE) Ur Phencyclidine Scrn Negative (NEGATIVE) Ur Amphetamines Screen Negative (NEGATIVE) U Benzodiazepines Scrn Negative (NEGATIVE) U Oth Cocaine Metabols Negative (NEGATIVE) U Cannabinoids Screen Negative (NEGATIVE) Alcohol, Quantitative (0-10) mg/dl 09/28/17 09/28/17 09/28/17 Range/Units 12:19 12:19 12:19 WBC 5.6 (4.8-10.8) K/uL RBC 4.79 (3.80-5.20) Mil/uL Hgb 13.6 (11.0-16.0) g/dL Hct 39.8 (34.0-47.0) % MCV 83.1 (81.0-99.0) fL MCH 28.4 (27.0-31.0) pg MCHC 34.1 (33.0-37.0) g/dL RDW 14.0 (11.5-14.5) % Plt Count 292 (130-400) K/uL MPV 8.8 (7.2-11.7) fL Neut % (Auto) 65.7 (50.0-75.0) % Lymph % (Auto) 27.9 (20.0-40.0) % [place] % (Auto) 5.3 (0.0-10.0) % Eos % (Auto) 0.4 (0.0-4.0) % Baso % (Auto) 0.7 (0.0-2.0) % Neut # (Auto) 3.7 (1.8-7.0) K/uL Lymph # (Auto) 1.6 (1.0-4.3) K/uL [place] # (Auto) 0.3 (0.0-0.8) K/uL Eos # (Auto) 0.0 (0.0-0.7) K/uL Baso # (Auto) 0.0 (0.0-0.2) K/uL Neutrophils % (Manual) (50-75) % Lymphocytes % (Manual) (20-40) % Monocytes % (Manual) (0-10) % Platelet Estimate (NORMAL) RBC Morphology Puncture Site pCO2 (35-45) mm/Hg pO2 (80-100) mm/Hg HCO3 (21-28) mmol/L ABG pH (7.35-7.45) ABG Total CO2 (22-28) mmol/L ABG O2 Saturation (95-98) % ABG Base Excess (-2.0-3.0) mmol/L ABG Hemoglobin (11.7-17.4) g/dL ABG Carboxyhemoglobin (0.5-1.5) % POC ABG HHb (Measured) (0.0-5.0) % ABG Methemoglobin (0.0-3.0) % Barry Test VBG pH (7.32-7.43) VBG pCO2 (40-60) mmHg VBG HCO3 mmol/L VBG Total CO2 (22-28) mmol/L VBG O2 Sat (Calc) (40-65) % VBG Base Excess (0.0-2.0) mmol/L VBG Potassium (3.6-5.2) mmol/L A-a O2 Difference mm/Hg Respiratory Index Hgb O2 Saturation (95.0-98.0) % Glucose (65-105) mg/dl Lactate (0.7-2.1) mmol/L FiO2 % Crit Value Called To Crit Value Called By Crit Value Read Back Blood Gas Notified Time Sodium 139 (132-148) mmol/L Potassium 3.5 L (3.6-5.2) mmol/L Chloride 104 (98-107) mmol/L Carbon Dioxide 19 L (22-30) mmol/L Anion Gap 19 (10-20) BUN 8 (7-17) mg/dL Creatinine 0.6 L (0.7-1.2) mg/dL Est GFR ( Amer) > 60 Est GFR (Non-Af Amer) > 60 POC Glucose (mg/dL) (65-110) mg/dL Random Glucose 61 L (65-105) mg/dL Serum Osmolality (272-300) mosm/kg Lactic Acid (0.7-2.1) mmol/L Calcium 8.8 (8.6-10.4) mg/dl Phosphorus (2.5-4.5) mg/dL Magnesium (1.6-2.3) mg/dL Total Bilirubin 0.7 (0.2-1.3) mg/dL AST 27 (14-36) U/L ALT < 6 L (9-52) U/L Alkaline Phosphatase 67 (38-126) U/L Ammonia (9-33) umol/L Total Creatine Kinase 86 (30-135) U/L Total Protein 8.2 (6.3-8.3) g/dL Albumin 4.1 (3.5-5.0) g/dL Globulin 4.1 H (2.2-3.9) gm/dL Albumin/Globulin Ratio 1.0 (1.0-2.1) Procalcitonin (0.19-0.49) NG/ML Venous Blood Potassium (3.6-5.2) mmol/L Urine Color Yellow (YELLOW) Urine Clarity Clear (Clear) Urine pH 6.0 (5.0-8.0) Ur Specific [place] 1.006 (1.003-1.030) Urine Protein Negative (NEGATIVE) mg/dL Urine Glucose (UA) Normal (Normal) mg/dL Urine Ketones Negative (NEGATIVE) mg/dL Urine Blood Negative (NEGATIVE) Urine Nitrate Negative (NEGATIVE) Urine Bilirubin Negative (NEGATIVE) Urine Urobilinogen Normal (0.2-1.0) mg/dL Ur Leukocyte Esterase Neg (Negative) Bernie/uL Urine WBC (Auto) < 1 (0-5) /hpf Urine RBC (Auto) < 1 (0-3) /hpf Ur Squamous Epith Cells < 1 (0-5) /hpf Urine Osmolality (300-1000) mosm/kg Salicylates mg/dL 1 Urine Opiates Screen (NEGATIVE) Urine Methadone Screen (NEGATIVE) Acetaminophen (10.0-30.0) ug/mL Ur Barbiturates Screen (NEGATIVE) Ur Phencyclidine Scrn (NEGATIVE) Ur Amphetamines Screen (NEGATIVE) U Benzodiazepines Scrn (NEGATIVE) U Oth Cocaine Metabols (NEGATIVE) U Cannabinoids Screen (NEGATIVE) Alcohol, Quantitative < 10 (0-10) mg/dl 09/28/17 Range/Units 11:46 WBC (4.8-10.8) K/uL RBC (3.80-5.20) Mil/uL Hgb (11.0-16.0) g/dL Hct (34.0-47.0) % MCV (81.0-99.0) fL MCH (27.0-31.0) pg MCHC (33.0-37.0) g/dL RDW (11.5-14.5) % Plt Count (130-400) K/uL MPV (7.2-11.7) fL Neut % (Auto) (50.0-75.0) % Lymph % (Auto) (20.0-40.0) % [place] % (Auto) (0.0-10.0) % Eos % (Auto) (0.0-4.0) % Baso % (Auto) (0.0-2.0) % Neut # (Auto) (1.8-7.0) K/uL Lymph # (Auto) (1.0-4.3) K/uL [place] # (Auto) (0.0-0.8) K/uL Eos # (Auto) (0.0-0.7) K/uL Baso # (Auto) (0.0-0.2) K/uL Neutrophils % (Manual) (50-75) % Lymphocytes % (Manual) (20-40) % Monocytes % (Manual) (0-10) % Platelet Estimate (NORMAL) RBC Morphology Puncture Site pCO2 (35-45) mm/Hg pO2 (80-100) mm/Hg HCO3 (21-28) mmol/L ABG pH (7.35-7.45) ABG Total CO2 (22-28) mmol/L ABG O2 Saturation (95-98) % ABG Base Excess (-2.0-3.0) mmol/L ABG Hemoglobin (11.7-17.4) g/dL ABG Carboxyhemoglobin (0.5-1.5) % POC ABG HHb (Measured) (0.0-5.0) % ABG Methemoglobin (0.0-3.0) % Barry Test VBG pH (7.32-7.43) VBG pCO2 (40-60) mmHg VBG HCO3 mmol/L VBG Total CO2 (22-28) mmol/L VBG O2 Sat (Calc) (40-65) % VBG Base Excess (0.0-2.0) mmol/L VBG Potassium (3.6-5.2) mmol/L A-a O2 Difference mm/Hg Respiratory Index Hgb O2 Saturation (95.0-98.0) % Glucose (65-105) mg/dl Lactate (0.7-2.1) mmol/L FiO2 % Crit Value Called To Crit Value Called By Crit Value Read Back Blood Gas Notified Time Sodium (132-148) mmol/L Potassium (3.6-5.2) mmol/L Chloride (98-107) mmol/L Carbon Dioxide (22-30) mmol/L Anion Gap (10-20) BUN (7-17) mg/dL Creatinine (0.7-1.2) mg/dL Est GFR ( Amer) Est GFR (Non-Af Amer) POC Glucose (mg/dL) 71 (65-110) mg/dL Random Glucose (65-105) mg/dL Serum Osmolality (272-300) mosm/kg Lactic Acid (0.7-2.1) mmol/L Calcium (8.6-10.4) mg/dl Phosphorus (2.5-4.5) mg/dL Magnesium (1.6-2.3) mg/dL Total Bilirubin (0.2-1.3) mg/dL AST (14-36) U/L ALT (9-52) U/L Alkaline Phosphatase (38-126) U/L Ammonia (9-33) umol/L Total Creatine Kinase (30-135) U/L Total Protein (6.3-8.3) g/dL Albumin (3.5-5.0) g/dL Globulin (2.2-3.9) gm/dL Albumin/Globulin Ratio (1.0-2.1) Procalcitonin (0.19-0.49) NG/ML Venous Blood Potassium (3.6-5.2) mmol/L Urine Color (YELLOW) Urine Clarity (Clear) Urine pH (5.0-8.0) Ur Specific [place] (1.003-1.030) Urine Protein (NEGATIVE) mg/dL Urine Glucose (UA) (Normal) mg/dL Urine Ketones (NEGATIVE) mg/dL Urine Blood (NEGATIVE) Urine Nitrate (NEGATIVE) Urine Bilirubin (NEGATIVE) Urine Urobilinogen (0.2-1.0) mg/dL Ur Leukocyte Esterase (Negative) Bernie/uL Urine WBC (Auto) (0-5) /hpf Urine RBC (Auto) (0-3) /hpf Ur Squamous Epith Cells (0-5) /hpf Urine Osmolality (300-1000) mosm/kg Salicylates mg/dL 1 Urine Opiates Screen (NEGATIVE) Urine Methadone Screen (NEGATIVE) Acetaminophen (10.0-30.0) ug/mL Ur Barbiturates Screen (NEGATIVE) Ur Phencyclidine Scrn (NEGATIVE) Ur Amphetamines Screen (NEGATIVE) U Benzodiazepines Scrn (NEGATIVE) U Oth Cocaine Metabols (NEGATIVE) U Cannabinoids Screen (NEGATIVE) Alcohol, Quantitative (0-10) mg/dl Laboratory Results - last 24 hr 09/28/17 09/28/17 09/28/17 11:46 12:19 12:19 WBC 5.6 RBC 4.79 Hgb 13.6 Hct 39.8 MCV 83.1 MCH 28.4 MCHC 34.1 RDW 14.0 Plt Count 292 MPV 8.8 Neut % (Auto) 65.7 Lymph % (Auto) 27.9 [place] % (Auto) 5.3 Eos % (Auto) 0.4 Baso % (Auto) 0.7 Neut # (Auto) 3.7 Lymph # (Auto) 1.6 [place] # (Auto) 0.3 Eos # (Auto) 0.0 Baso # (Auto) 0.0 Neutrophils % (Manual) Lymphocytes % (Manual) Monocytes % (Manual) Platelet Estimate RBC Morphology Puncture Site pCO2 pO2 HCO3 ABG pH ABG Total CO2 ABG O2 Saturation ABG Base Excess ABG Hemoglobin ABG Carboxyhemoglobin POC ABG HHb (Measured) ABG Methemoglobin Barry Test VBG pH VBG pCO2 VBG HCO3 VBG Total CO2 VBG O2 Sat (Calc) VBG Base Excess VBG Potassium A-a O2 Difference Respiratory Index Hgb O2 Saturation Glucose Lactate FiO2 Crit Value Called To Crit Value Called By Crit Value Read Back Blood Gas Notified Time Sodium Potassium Chloride Carbon Dioxide Anion Gap BUN Creatinine Est GFR ( Amer) Est GFR (Non-Af Amer) POC Glucose (mg/dL) 71 Random Glucose Serum Osmolality Lactic Acid Calcium Phosphorus Magnesium Total Bilirubin AST ALT Alkaline Phosphatase Ammonia Total Creatine Kinase Total Protein Albumin Globulin Albumin/Globulin Ratio Procalcitonin Venous Blood Potassium Urine Color Yellow Urine Clarity Clear Urine pH 6.0 Ur Specific [place] 1.006 Urine Protein Negative Urine Glucose (UA) Normal Urine Ketones Negative Urine Blood Negative Urine Nitrate Negative Urine Bilirubin Negative Urine Urobilinogen Normal Ur Leukocyte Esterase Neg Urine WBC (Auto) < 1 Urine RBC (Auto) < 1 Ur Squamous Epith Cells < 1 Urine Osmolality Salicylates Urine Opiates Screen Urine Methadone Screen Acetaminophen Ur Barbiturates Screen Ur Phencyclidine Scrn Ur Amphetamines Screen U Benzodiazepines Scrn U Oth Cocaine Metabols U Cannabinoids Screen Alcohol, Quantitative 09/28/17 09/28/17 09/28/17 12:19 12:19 12:19 WBC RBC Hgb Hct MCV MCH MCHC RDW Plt Count MPV Neut % (Auto) Lymph % (Auto) [place] % (Auto) Eos % (Auto) Baso % (Auto) Neut # (Auto) Lymph # (Auto) [place] # (Auto) Eos # (Auto) Baso # (Auto) Neutrophils % (Manual) Lymphocytes % (Manual) Monocytes % (Manual) Platelet Estimate RBC Morphology Puncture Site pCO2 pO2 HCO3 ABG pH ABG Total CO2 ABG O2 Saturation ABG Base Excess ABG Hemoglobin ABG Carboxyhemoglobin POC ABG HHb (Measured) ABG Methemoglobin Barry Test VBG pH VBG pCO2 VBG HCO3 VBG Total CO2 VBG O2 Sat (Calc) VBG Base Excess VBG Potassium A-a O2 Difference Respiratory Index Hgb O2 Saturation Glucose Lactate FiO2 Crit Value Called To Crit Value Called By Crit Value Read Back Blood Gas Notified Time Sodium 139 Potassium 3.5 L Chloride 104 Carbon Dioxide 19 L Anion Gap 19 BUN 8 Creatinine 0.6 L Est GFR ( Amer) > 60 Est GFR (Non-Af Amer) > 60 POC Glucose (mg/dL) Random Glucose 61 L Serum Osmolality Lactic Acid Calcium 8.8 Phosphorus Magnesium Total Bilirubin 0.7 AST 27 ALT < 6 L Alkaline Phosphatase 67 Ammonia Total Creatine Kinase 86 Total Protein 8.2 Albumin 4.1 Globulin 4.1 H Albumin/Globulin Ratio 1.0 Procalcitonin Venous Blood Potassium Urine Color Urine Clarity Urine pH Ur Specific [place] Urine Protein Urine Glucose (UA) Urine Ketones Urine Blood Urine Nitrate Urine Bilirubin Urine Urobilinogen Ur Leukocyte Esterase Urine WBC (Auto) Urine RBC (Auto) Ur Squamous Epith Cells Urine Osmolality Salicylates < 1.0 Urine Opiates Screen Negative Urine Methadone Screen Negative Acetaminophen < 10.0 L Ur Barbiturates Screen Negative Ur Phencyclidine Scrn Negative Ur Amphetamines Screen Negative U Benzodiazepines Scrn Negative U Oth Cocaine Metabols Negative U Cannabinoids Screen Negative Alcohol, Quantitative < 10 09/28/17 09/28/17 09/28/17 13:45 14:24 14:45 WBC RBC Hgb Hct MCV MCH MCHC RDW Plt Count MPV Neut % (Auto) Lymph % (Auto) [place] % (Auto) Eos % (Auto) Baso % (Auto) Neut # (Auto) Lymph # (Auto) [place] # (Auto) Eos # (Auto) Baso # (Auto) Neutrophils % (Manual) Lymphocytes % (Manual) Monocytes % (Manual) Platelet Estimate RBC Morphology Puncture Site Rradial pCO2 29 L pO2 128 H HCO3 18.0 L ABG pH 7.34 L ABG Total CO2 16.5 L ABG O2 Saturation 97.4 ABG Base Excess -8.9 L ABG Hemoglobin 12.2 ABG Carboxyhemoglobin 0.3 L POC ABG HHb (Measured) 2.6 ABG Methemoglobin 0.7 Barry Test Pos VBG pH VBG pCO2 VBG HCO3 VBG Total CO2 VBG O2 Sat (Calc) VBG Base Excess VBG Potassium A-a O2 Difference -15.0 Respiratory Index -0.1 Hgb O2 Saturation 96.3 Glucose Lactate FiO2 21.0 Crit Value Called To Crit Value Called By Crit Value Read Back Blood Gas Notified Time Sodium Potassium Chloride Carbon Dioxide Anion Gap BUN Creatinine Est GFR ( Amer) Est GFR (Non-Af Amer) POC Glucose (mg/dL) 57 L Random Glucose Serum Osmolality Lactic Acid Calcium Phosphorus Magnesium Total Bilirubin AST ALT Alkaline Phosphatase Ammonia < 9 L Total Creatine Kinase Total Protein Albumin Globulin Albumin/Globulin Ratio Procalcitonin Venous Blood Potassium Urine Color Urine Clarity Urine pH Ur Specific [place] Urine Protein Urine Glucose (UA) Urine Ketones Urine Blood Urine Nitrate Urine Bilirubin Urine Urobilinogen Ur Leukocyte Esterase Urine WBC (Auto) Urine RBC (Auto) Ur Squamous Epith Cells Urine Osmolality Salicylates Urine Opiates Screen Urine Methadone Screen Acetaminophen Ur Barbiturates Screen Ur Phencyclidine Scrn Ur Amphetamines Screen U Benzodiazepines Scrn U Oth Cocaine Metabols U Cannabinoids Screen Alcohol, Quantitative 09/28/17 09/28/17 09/28/17 14:47 15:14 15:20 WBC RBC Hgb Hct MCV MCH MCHC RDW Plt Count MPV Neut % (Auto) Lymph % (Auto) [place] % (Auto) Eos % (Auto) Baso % (Auto) Neut # (Auto) Lymph # (Auto) [place] # (Auto) Eos # (Auto) Baso # (Auto) Neutrophils % (Manual) Lymphocytes % (Manual) Monocytes % (Manual) Platelet Estimate RBC Morphology Puncture Site pCO2 pO2 HCO3 ABG pH ABG Total CO2 ABG O2 Saturation ABG Base Excess ABG Hemoglobin ABG Carboxyhemoglobin POC ABG HHb (Measured) ABG Methemoglobin Barry Test VBG pH VBG pCO2 VBG HCO3 VBG Total CO2 VBG O2 Sat (Calc) VBG Base Excess VBG Potassium A-a O2 Difference Respiratory Index Hgb O2 Saturation Glucose Lactate FiO2 Crit Value Called To Crit Value Called By Crit Value Read Back Blood Gas Notified Time Sodium Potassium Chloride Carbon Dioxide Anion Gap BUN Creatinine Est GFR ( Amer) Est GFR (Non-Af Amer) POC Glucose (mg/dL) 60 L 214 H Random Glucose Serum Osmolality Lactic Acid Calcium Phosphorus Magnesium Total Bilirubin AST ALT Alkaline Phosphatase Ammonia Total Creatine Kinase Total Protein Albumin Globulin Albumin/Globulin Ratio Procalcitonin Venous Blood Potassium Urine Color Urine Clarity Urine pH Ur Specific [place] Urine Protein Urine Glucose (UA) Urine Ketones Urine Blood Urine Nitrate Urine Bilirubin Urine Urobilinogen Ur Leukocyte Esterase Urine WBC (Auto) Urine RBC (Auto) Ur Squamous Epith Cells Urine Osmolality 291 L Salicylates Urine Opiates Screen Urine Methadone Screen Acetaminophen Ur Barbiturates Screen Ur Phencyclidine Scrn Ur Amphetamines Screen U Benzodiazepines Scrn U Oth Cocaine Metabols U Cannabinoids Screen Alcohol, Quantitative 09/28/17 09/28/17 09/28/17 15:20 16:26 16:48 WBC RBC Hgb Hct MCV MCH MCHC RDW Plt Count MPV Neut % (Auto) Lymph % (Auto) [place] % (Auto) Eos % (Auto) Baso % (Auto) Neut # (Auto) Lymph # (Auto) [place] # (Auto) Eos # (Auto) Baso # (Auto) Neutrophils % (Manual) Lymphocytes % (Manual) Monocytes % (Manual) Platelet Estimate RBC Morphology Puncture Site pCO2 pO2 HCO3 ABG pH ABG Total CO2 ABG O2 Saturation ABG Base Excess ABG Hemoglobin ABG Carboxyhemoglobin POC ABG HHb (Measured) ABG Methemoglobin Barry Test VBG pH VBG pCO2 VBG HCO3 VBG Total CO2 VBG O2 Sat (Calc) VBG Base Excess VBG Potassium A-a O2 Difference Respiratory Index Hgb O2 Saturation Glucose Lactate FiO2 Crit Value Called To Crit Value Called By Crit Value Read Back Blood Gas Notified Time Sodium Potassium Chloride Carbon Dioxide Anion Gap BUN Creatinine Est GFR ( Amer) Est GFR (Non-Af Amer) POC Glucose (mg/dL) 237 H Random Glucose Serum Osmolality 294 Lactic Acid 3.5 H Calcium Phosphorus Magnesium Total Bilirubin AST ALT Alkaline Phosphatase Ammonia Total Creatine Kinase Total Protein Albumin Globulin Albumin/Globulin Ratio Procalcitonin Venous Blood Potassium Urine Color Urine Clarity Urine pH Ur Specific [place] Urine Protein Urine Glucose (UA) Urine Ketones Urine Blood Urine Nitrate Urine Bilirubin Urine Urobilinogen Ur Leukocyte Esterase Urine WBC (Auto) Urine RBC (Auto) Ur Squamous Epith Cells Urine Osmolality Salicylates Urine Opiates Screen Urine Methadone Screen Acetaminophen Ur Barbiturates Screen Ur Phencyclidine Scrn Ur Amphetamines Screen U Benzodiazepines Scrn U Oth Cocaine Metabols U Cannabinoids Screen Alcohol, Quantitative 09/28/17 09/28/17 09/28/17 17:31 20:07 20:14 WBC RBC Hgb Hct MCV MCH MCHC RDW Plt Count MPV Neut % (Auto) Lymph % (Auto) [place] % (Auto) Eos % (Auto) Baso % (Auto) Neut # (Auto) Lymph # (Auto) [place] # (Auto) Eos # (Auto) Baso # (Auto) Neutrophils % (Manual) Lymphocytes % (Manual) Monocytes % (Manual) Platelet Estimate RBC Morphology Puncture Site pCO2 pO2 35 41 HCO3 ABG pH ABG Total CO2 ABG O2 Saturation ABG Base Excess ABG Hemoglobin ABG Carboxyhemoglobin POC ABG HHb (Measured) ABG Methemoglobin Barry Test VBG pH 7.28 L 7.38 VBG pCO2 37 L 31 L VBG HCO3 17.2 19.9 VBG Total CO2 18.5 L 19.3 L VBG O2 Sat (Calc) 66.6 H 80.7 H VBG Base Excess -8.6 L -5.7 L VBG Potassium 5.0 3.1 L A-a O2 Difference Respiratory Index Hgb O2 Saturation Glucose 241 H 162 H Lactate 4.7 H* 2.4 H FiO2 Crit Value Called To Dr. kincaid Crit Value Called By Effie Crit Value Read Back Y Blood Gas Notified Time 1739 Sodium 137.0 134.0 Potassium Chloride 100.0 100.0 Carbon Dioxide Anion Gap BUN Creatinine Est GFR ( Amer) Est GFR (Non-Af Amer) POC Glucose (mg/dL) 185 H Random Glucose Serum Osmolality Lactic Acid Calcium Phosphorus Magnesium Total Bilirubin AST ALT Alkaline Phosphatase Ammonia Total Creatine Kinase Total Protein Albumin Globulin Albumin/Globulin Ratio Procalcitonin Venous Blood Potassium 5.0 3.1 L Urine Color Urine Clarity Urine pH Ur Specific [place] Urine Protein Urine Glucose (UA) Urine Ketones Urine Blood Urine Nitrate Urine Bilirubin Urine Urobilinogen Ur Leukocyte Esterase Urine WBC (Auto) Urine RBC (Auto) Ur Squamous Epith Cells Urine Osmolality Salicylates Urine Opiates Screen Urine Methadone Screen Acetaminophen Ur Barbiturates Screen Ur Phencyclidine Scrn Ur Amphetamines Screen U Benzodiazepines Scrn U Oth Cocaine Metabols U Cannabinoids Screen Alcohol, Quantitative 09/28/17 09/28/17 09/28/17 20:20 20:20 20:20 WBC 9.9 D RBC 4.79 Hgb 13.2 Hct 39.9 MCV 83.2 MCH 27.5 MCHC 33.1 RDW 14.4 Plt Count 282 MPV 8.5 Neut % (Auto) 92.7 H Lymph % (Auto) 3.9 L [place] % (Auto) 3.0 Eos % (Auto) 0.0 Baso % (Auto) 0.4 Neut # (Auto) 9.2 H Lymph # (Auto) 0.4 L [place] # (Auto) 0.3 Eos # (Auto) 0.0 Baso # (Auto) 0.0 Neutrophils % (Manual) 95 H Lymphocytes % (Manual) 4 L Monocytes % (Manual) 1 Platelet Estimate Normal RBC Morphology Puncture Site pCO2 pO2 HCO3 ABG pH ABG Total CO2 ABG O2 Saturation ABG Base Excess ABG Hemoglobin ABG Carboxyhemoglobin POC ABG HHb (Measured) ABG Methemoglobin Barry Test VBG pH VBG pCO2 VBG HCO3 VBG Total CO2 VBG O2 Sat (Calc) VBG Base Excess VBG Potassium A-a O2 Difference Respiratory Index Hgb O2 Saturation Glucose Lactate FiO2 Crit Value Called To Crit Value Called By Crit Value Read Back Blood Gas Notified Time Sodium 136 Potassium 3.3 L Chloride 100 Carbon Dioxide 17 L Anion Gap 22 H BUN 6 L Creatinine 0.5 L Est GFR ( Amer) > 60 Est GFR (Non-Af Amer) > 60 POC Glucose (mg/dL) Random Glucose 157 H Serum Osmolality Lactic Acid Calcium 7.6 L Phosphorus 1.0 L* Magnesium 1.7 Total Bilirubin 0.4 AST 18 ALT 8 L D Alkaline Phosphatase < 20 L D Ammonia Total Creatine Kinase Total Protein 7.5 Albumin 4.2 Globulin 3.3 Albumin/Globulin Ratio 1.3 Procalcitonin < 0.05 L Venous Blood Potassium Urine Color Urine Clarity Urine pH Ur Specific [place] Urine Protein Urine Glucose (UA) Urine Ketones Urine Blood Urine Nitrate Urine Bilirubin Urine Urobilinogen Ur Leukocyte Esterase Urine WBC (Auto) Urine RBC (Auto) Ur Squamous Epith Cells Urine Osmolality Salicylates Urine Opiates Screen Urine Methadone Screen Acetaminophen Ur Barbiturates Screen Ur Phencyclidine Scrn Ur Amphetamines Screen U Benzodiazepines Scrn U Oth Cocaine Metabols U Cannabinoids Screen Alcohol, Quantitative 09/28/17 09/29/17 09/29/17 23:40 05:35 05:48 WBC RBC Hgb Hct MCV MCH MCHC RDW Plt Count MPV Neut % (Auto) Lymph % (Auto) [place] % (Auto) Eos % (Auto) Baso % (Auto) Neut # (Auto) Lymph # (Auto) [place] # (Auto) Eos # (Auto) Baso # (Auto) Neutrophils % (Manual) Lymphocytes % (Manual) Monocytes % (Manual) Platelet Estimate RBC Morphology Puncture Site pCO2 pO2 27 L HCO3 ABG pH ABG Total CO2 ABG O2 Saturation ABG Base Excess ABG Hemoglobin ABG Carboxyhemoglobin POC ABG HHb (Measured) ABG Methemoglobin Barry Test VBG pH 7.49 H VBG pCO2 29 L VBG HCO3 23.7 VBG Total CO2 23.0 VBG O2 Sat (Calc) 56.9 VBG Base Excess -0.2 L VBG Potassium 2.5 L* A-a O2 Difference Respiratory Index Hgb O2 Saturation Glucose 110 H Lactate 1.5 FiO2 Crit Value Called To Reginald sanchez rn Crit Value Called By Coleman resistance welder Crit Value Read Back Y Blood Gas Notified Time 540 Sodium 137.0 Potassium Chloride 104.0 Carbon Dioxide Anion Gap BUN Creatinine Est GFR ( Amer) Est GFR (Non-Af Amer) POC Glucose (mg/dL) 105 119 H Random Glucose Serum Osmolality Lactic Acid Calcium Phosphorus Magnesium Total Bilirubin AST ALT Alkaline Phosphatase Ammonia Total Creatine Kinase Total Protein Albumin Globulin Albumin/Globulin Ratio Procalcitonin Venous Blood Potassium 2.5 L* Urine Color Urine Clarity Urine pH Ur Specific [place] Urine Protein Urine Glucose (UA) Urine Ketones Urine Blood Urine Nitrate Urine Bilirubin Urine Urobilinogen Ur Leukocyte Esterase Urine WBC (Auto) Urine RBC (Auto) Ur Squamous Epith Cells Urine Osmolality Salicylates Urine Opiates Screen Urine Methadone Screen Acetaminophen Ur Barbiturates Screen Ur Phencyclidine Scrn Ur Amphetamines Screen U Benzodiazepines Scrn U Oth Cocaine Metabols U Cannabinoids Screen Alcohol, Quantitative 09/29/17 09/29/17 09/29/17 06:12 06:14 07:01 WBC 16.4 H D RBC 4.47 Hgb 12.5 Hct 37.0 MCV 82.7 MCH 27.9 MCHC 33.7 RDW 13.8 Plt Count 290 MPV 8.7 Neut % (Auto) 86.3 H Lymph % (Auto) 7.0 L [place] % (Auto) 6.6 Eos % (Auto) 0.0 Baso % (Auto) 0.1 Neut # (Auto) 14.1 H Lymph # (Auto) 1.1 [place] # (Auto) 1.1 H Eos # (Auto) 0.0 Baso # (Auto) 0.0 Neutrophils % (Manual) 89 H Lymphocytes % (Manual) 8 L Monocytes % (Manual) 3 Platelet Estimate Normal RBC Morphology Normal Puncture Site pCO2 pO2 HCO3 ABG pH ABG Total CO2 ABG O2 Saturation ABG Base Excess ABG Hemoglobin ABG Carboxyhemoglobin POC ABG HHb (Measured) ABG Methemoglobin Barry Test VBG pH VBG pCO2 VBG HCO3 VBG Total CO2 VBG O2 Sat (Calc) VBG Base Excess VBG Potassium A-a O2 Difference Respiratory Index Hgb O2 Saturation Glucose Lactate FiO2 Crit Value Called To Crit Value Called By Crit Value Read Back Blood Gas Notified Time Sodium 139 Potassium 2.8 L Chloride 102 Carbon Dioxide 22 Anion Gap 18 BUN 4 L Creatinine 0.5 L Est GFR ( Amer) > 60 Est GFR (Non-Af Amer) > 60 POC Glucose (mg/dL) Random Glucose 99 Serum Osmolality Lactic Acid Calcium 7.9 L Phosphorus 2.8 Magnesium 1.6 Total Bilirubin 0.4 AST 17 ALT < 6 L D Alkaline Phosphatase 43 Ammonia Total Creatine Kinase Total Protein 7.4 Albumin 3.8 Globulin 3.6 Albumin/Globulin Ratio 1.0 Procalcitonin Venous Blood Potassium Urine Color Urine Clarity Urine pH Ur Specific [place] Urine Protein Urine Glucose (UA) Urine Ketones Urine Blood Urine Nitrate Urine Bilirubin Urine Urobilinogen Ur Leukocyte Esterase Urine WBC (Auto) Urine RBC (Auto) Ur Squamous Epith Cells Urine Osmolality Salicylates Urine Opiates Screen Urine Methadone Screen Acetaminophen Ur Barbiturates Screen Ur Phencyclidine Scrn Ur Amphetamines Screen U Benzodiazepines Scrn U Oth Cocaine Metabols U Cannabinoids Screen Alcohol, Quantitative 09/29/17 09:10 WBC RBC Hgb Hct MCV MCH MCHC RDW Plt Count MPV Neut % (Auto) Lymph % (Auto) [place] % (Auto) Eos % (Auto) Baso % (Auto) Neut # (Auto) Lymph # (Auto) [place] # (Auto) Eos # (Auto) Baso # (Auto) Neutrophils % (Manual) Lymphocytes % (Manual) Monocytes % (Manual) Platelet Estimate RBC Morphology Puncture Site pCO2 pO2 HCO3 ABG pH ABG Total CO2 ABG O2 Saturation ABG Base Excess ABG Hemoglobin ABG Carboxyhemoglobin POC ABG HHb (Measured) ABG Methemoglobin Barry Test VBG pH VBG pCO2 VBG HCO3 VBG Total CO2 VBG O2 Sat (Calc) VBG Base Excess VBG Potassium A-a O2 Difference Respiratory Index Hgb O2 Saturation Glucose Lactate FiO2 Crit Value Called To Crit Value Called By Crit Value Read Back Blood Gas Notified Time Sodium Potassium Chloride Carbon Dioxide Anion Gap BUN Creatinine Est GFR ( Amer) Est GFR (Non-Af Amer) POC Glucose (mg/dL) Random Glucose Serum Osmolality 295 Lactic Acid Calcium Phosphorus Magnesium Total Bilirubin AST ALT Alkaline Phosphatase Ammonia Total Creatine Kinase Total Protein Albumin Globulin Albumin/Globulin Ratio Procalcitonin Venous Blood Potassium Urine Color Urine Clarity Urine pH Ur Specific [place] Urine Protein Urine Glucose (UA) Urine Ketones Urine Blood Urine Nitrate Urine Bilirubin Urine Urobilinogen Ur Leukocyte Esterase Urine WBC (Auto) Urine RBC (Auto) Ur Squamous Epith Cells Urine Osmolality Salicylates Urine Opiates Screen Urine Methadone Screen Acetaminophen Ur Barbiturates Screen Ur Phencyclidine Scrn Ur Amphetamines Screen U Benzodiazepines Scrn U Oth Cocaine Metabols U Cannabinoids Screen Alcohol, Quantitative EKG/Cardiology Studies: Cardiology / EKG Studies 09/28/17 13:52 EKG [ELECTROCARDIOGRAM] Stat Comment: Mode Of Transportation: Reason For Exam: drug overdose 09/28/17 16:00 EKG [ELECTROCARDIOGRAM] Q4H Comment: Mode Of Transportation: Reason For Exam: prolonged QTC 09/28/17 20:00 EKG [ELECTROCARDIOGRAM] Q4H Comment: Mode Of Transportation: Reason For Exam: prolonged QTC 09/29/17 00:00 EKG [ELECTROCARDIOGRAM] Q4H Comment: Mode Of Transportation: Reason For Exam: prolonged QTC 09/29/17 04:00 EKG [ELECTROCARDIOGRAM] Q4H Comment: Mode Of Transportation: Reason For Exam: prolonged QTC 09/29/17 08:01 EKG [ELECTROCARDIOGRAM] Stat Comment: Mode Of Transportation: Reason For Exam: qtc Fingerstick Blood Sugar Results: 237 Assessment/Plan - Assessment and Plan (Free Text) Assessment: This is a 27 year old female with unknown medical history who was found unresponsive by her roommates. Patient moved here recently from [facility] and is currently residing with newly acquainted roommates. As per the roommates, she was last seen talking to her parents over the phone this morning, when they started to argue. Shortly after, she was found unresponsive with an empty bottle of Unisom 50mg, 60 tablets and Advil PM, 120 tablets with tablets and liquified content in the bottle. As per EMS, she was found supine, no evidence of head or neck trauma, she was not moving her extremities, was not actively seizing. Patient seen at bedside in the ED. She was tachycardiac 120-140s, with pupils reactive, neck rigid, unable to sidebend to the right, resists passive movement, responds to sternal rub, upper and lower extremities flexed. Accucheck showed sugars <50. Given D50 x 2. Placed on D5 - Bicarb drip. Patient is more alert, responsive, able to move all extremities, answer some question appropriately. Plan: Neuro: GCS 14 (E4 V4 M6) Awake, attempting to communicate, able to move all extremities on command A: Overdose - Started on Bicarbonate drip, Started Acetylcysteine protocol - Electrolytes repleted - F/U drug tox - MRI brain A: ??Seizure Activity - Neurology consulted - Dr. Bowens - EEG done at bedside - pending read - Keppra loaded, started Keppra 750mg Q12 Cardio: A: Prolonged QTc - EKG: QTc @ 570, repeat EKG QTc 386 Pulm: - No acute distress Endo: A: Hypoglycemia - Accuchecks < 50s in the ED - Was given D50 x 2 amps in ED --250s - Accuchecks, continue to monitor - Currently on D5-0.9% NS ID: A: SIRS - Afebrile, no leukocytosis with left shift, no bandemia, Lactate 3.5 --> 4.7 - - > 2.4 --> 1.5 - Started Rocephin, Vanco empirically 09/28/17 - procal 0.05 pending repeat, will DC antibiotics appropriately - F/U UC, BC GI: - No acute issues Psych: - Psych consulted - Dr. Tavares for overdose Prophylaxis - Lovenox DW Dr. Aleksandra Kincaid, Tea Nowak DO, PGY-1 <Awilda Kincaid - Last Filed: 09/29/17 12:57> CCU Objective - Vital Signs / Intake & Output Vital Signs (Last 4 hours): Vital Signs Pulse Resp BP Pulse Ox 09/29/17 12:00 123 H 100 09/29/17 11:59 113 H 108/57 L 100 09/29/17 11:00 123 H 15 100 09/29/17 10:59 132 H 24 114/63 100 09/29/17 10:00 110 H 19 100 09/29/17 09:59 112 H 24 118/61 100 09/29/17 09:00 117 H 18 100 09/29/17 08:59 115/63 Intake and Output (Last 8hrs): Intake & Output 09/28/17 09/29/17 09/29/17 22:59 06:59 14:59 Intake Total 2414 2221 1496 Output Total 5040 1700 750 Balance -3786 521 746 Weight 119 lb 0.794 oz 119 lb 0.794 oz Intake: Intake, IV Amount 2414 2221 1496 Left Antecubital 800 800 448 Left Forearm 400 Right AC 2 650 925 524 Right Antecubital 964 496 124 Output: Urine 6200 1700 750 Urethral (Jimenez) 4000 1700 750 Other: Voiding Method Indwelling Catheter - Medications Active Medications: Active Medications Generic Name Dose Route Start Last Admin Trade Name Freq PRN Reason Stop Dose Admin Dextrose 0 ml 09/29/17 12:18 09/29/17 12:31 Dextrose 50% Inj IV 50 ml STAT PRN Administration Hypoglycemia Protocol Protocol Dextrose 0 gm 09/29/17 12:18 Glutose 15 PO ONCE PRN Hypoglycemia Protocol Protocol Enoxaparin Sodium 40 mg 09/29/17 10:00 09/29/17 10:56 Lovenox SC 40 mg DAILY IAN Administration Glucagon 0 mg 09/29/17 12:18 Glucagen Diagnostic Kit IM STAT PRN Hypoglycemia Protocol Protocol Acetylcysteine 5,900 mg/ 1,029.5 mls @ 64.344 mls/hr 09/28/17 21:00 09/28/17 22:02 Dextrose IVPB 09/29/17 12:59 64.344 mls/hr ONCE ONE Administration Dextrose/Sodium Chloride 1,000 mls @ 100 mls/hr 09/28/17 18:45 09/29/17 05:59 Dextrose 5%/0.9% Ns 1000 Ml IV Not Given .Q10H IAN Potassium Phosphate 15 mmole/ 255 mls @ 42.5 mls/hr 09/29/17 07:30 09/29/17 10:29 Sodium Chloride IV 09/29/17 13:29 42.5 mls/hr ONCE ONE Administration Dextrose 1,000 mls @ 0 mls/hr 09/29/17 12:18 Dextrose 5% In Water 1000 Ml IV .Q0M PRN Hypoglycemia Protocol Protocol Per Protocol Lorazepam 0.5 mg 09/29/17 11:12 Ativan IVP ONCE PRN Agitation Oxcarbazepine 150 mg 09/29/17 11:30 09/29/17 12:14 Trileptal PO 150 mg BID IAN Administration Pneumococcal Polyvalent Vaccine 0.5 ml 10/01/17 10:00 Pneumovax 23 Vaccine SC 10/01/17 10:01 .ONCE ONE Vitamin A 1 ea 09/29/17 10:00 09/29/17 11:01 Vitamin A & D Oint Ud Foilpak TOP 1 ea BID IAN Administration - Patient Studies Lab Studies: Lab Studies 09/29/17 09/29/17 09/29/17 Range/Units 12:48 12:19 12:17 WBC (4.8-10.8) K/uL RBC (3.80-5.20) Mil/uL Hgb (11.0-16.0) g/dL Hct (34.0-47.0) % MCV (81.0-99.0) fL MCH (27.0-31.0) pg MCHC (33.0-37.0) g/dL RDW (11.5-14.5) % Plt Count (130-400) K/uL MPV (7.2-11.7) fL Neut % (Auto) (50.0-75.0) % Lymph % (Auto) (20.0-40.0) % [place] % (Auto) (0.0-10.0) % Eos % (Auto) (0.0-4.0) % Baso % (Auto) (0.0-2.0) % Neut # (Auto) (1.8-7.0) K/uL Lymph # (Auto) (1.0-4.3) K/uL [place] # (Auto) (0.0-0.8) K/uL Eos # (Auto) (0.0-0.7) K/uL Baso # (Auto) (0.0-0.2) K/uL Neutrophils % (Manual) (50-75) % Lymphocytes % (Manual) (20-40) % Monocytes % (Manual) (0-10) % Platelet Estimate (NORMAL) RBC Morphology Puncture Site pCO2 (35-45) mm/Hg pO2 (80-100) mm/Hg HCO3 (21-28) mmol/L ABG pH (7.35-7.45) ABG Total CO2 (22-28) mmol/L ABG O2 Saturation (95-98) % ABG Base Excess (-2.0-3.0) mmol/L ABG Hemoglobin (11.7-17.4) g/dL ABG Carboxyhemoglobin (0.5-1.5) % POC ABG HHb (Measured) (0.0-5.0) % ABG Methemoglobin (0.0-3.0) % Barry Test VBG pH (7.32-7.43) VBG pCO2 (40-60) mmHg VBG HCO3 mmol/L VBG Total CO2 (22-28) mmol/L VBG O2 Sat (Calc) (40-65) % VBG Base Excess (0.0-2.0) mmol/L VBG Potassium (3.6-5.2) mmol/L A-a O2 Difference mm/Hg Respiratory Index Hgb O2 Saturation (95.0-98.0) % Sodium (132-148) mmol/l Chloride (98-107) mmol/L Glucose (65-105) mg/dl Lactate (0.7-2.1) mmol/L FiO2 % Crit Value Called To Crit Value Called By Crit Value Read Back Blood Gas Notified Time Potassium (3.6-5.2) mmol/L Carbon Dioxide (22-30) mmol/L Anion Gap (10-20) BUN (7-17) mg/dL Creatinine (0.7-1.2) mg/dL Est GFR ( Amer) Est GFR (Non-Af Amer) POC Glucose (mg/dL) 143 H 55 L 64 L (65-110) mg/dL Random Glucose (65-105) mg/dL Serum Osmolality (272-300) mosm/kg Lactic Acid (0.7-2.1) mmol/L Calcium (8.6-10.4) mg/dl Phosphorus (2.5-4.5) mg/dL Magnesium (1.6-2.3) mg/dL Total Bilirubin (0.2-1.3) mg/dL AST (14-36) U/L ALT (9-52) U/L Alkaline Phosphatase (38-126) U/L Ammonia (9-33) umol/L Total Protein (6.3-8.3) g/dL Albumin (3.5-5.0) g/dL Globulin (2.2-3.9) gm/dL Albumin/Globulin Ratio (1.0-2.1) Procalcitonin (0.19-0.49) NG/ML Venous Blood Potassium (3.6-5.2) mmol/L Urine Osmolality (300-1000) mosm/kg Urine Opiates Screen (NEGATIVE) Ur Amphetamines Screen (NEGATIVE) 09/29/17 09/29/17 09/29/17 Range/Units 09:10 09:10 07:01 WBC (4.8-10.8) K/uL RBC (3.80-5.20) Mil/uL Hgb (11.0-16.0) g/dL Hct (34.0-47.0) % MCV (81.0-99.0) fL MCH (27.0-31.0) pg MCHC (33.0-37.0) g/dL RDW (11.5-14.5) % Plt Count (130-400) K/uL MPV (7.2-11.7) fL Neut % (Auto) (50.0-75.0) % Lymph % (Auto) (20.0-40.0) % [place] % (Auto) (0.0-10.0) % Eos % (Auto) (0.0-4.0) % Baso % (Auto) (0.0-2.0) % Neut # (Auto) (1.8-7.0) K/uL Lymph # (Auto) (1.0-4.3) K/uL [place] # (Auto) (0.0-0.8) K/uL Eos # (Auto) (0.0-0.7) K/uL Baso # (Auto) (0.0-0.2) K/uL Neutrophils % (Manual) (50-75) % Lymphocytes % (Manual) (20-40) % Monocytes % (Manual) (0-10) % Platelet Estimate (NORMAL) RBC Morphology Puncture Site pCO2 (35-45) mm/Hg pO2 (80-100) mm/Hg HCO3 (21-28) mmol/L ABG pH (7.35-7.45) ABG Total CO2 (22-28) mmol/L ABG O2 Saturation (95-98) % ABG Base Excess (-2.0-3.0) mmol/L ABG Hemoglobin (11.7-17.4) g/dL ABG Carboxyhemoglobin (0.5-1.5) % POC ABG HHb (Measured) (0.0-5.0) % ABG Methemoglobin (0.0-3.0) % Barry Test VBG pH (7.32-7.43) VBG pCO2 (40-60) mmHg VBG HCO3 mmol/L VBG Total CO2 (22-28) mmol/L VBG O2 Sat (Calc) (40-65) % VBG Base Excess (0.0-2.0) mmol/L VBG Potassium (3.6-5.2) mmol/L A-a O2 Difference mm/Hg Respiratory Index Hgb O2 Saturation (95.0-98.0) % Sodium (132-148) mmol/l Chloride (98-107) mmol/L Glucose (65-105) mg/dl Lactate (0.7-2.1) mmol/L FiO2 % Crit Value Called To Crit Value Called By Crit Value Read Back Blood Gas Notified Time Potassium (3.6-5.2) mmol/L Carbon Dioxide (22-30) mmol/L Anion Gap (10-20) BUN (7-17) mg/dL Creatinine (0.7-1.2) mg/dL Est GFR ( Amer) Est GFR (Non-Af Amer) POC Glucose (mg/dL) (65-110) mg/dL Random Glucose (65-105) mg/dL Serum Osmolality 295 (272-300) mosm/kg Lactic Acid (0.7-2.1) mmol/L Calcium (8.6-10.4) mg/dl Phosphorus 2.8 (2.5-4.5) mg/dL Magnesium 1.6 (1.6-2.3) mg/dL Total Bilirubin (0.2-1.3) mg/dL AST (14-36) U/L ALT (9-52) U/L Alkaline Phosphatase (38-126) U/L Ammonia (9-33) umol/L Total Protein (6.3-8.3) g/dL Albumin (3.5-5.0) g/dL Globulin (2.2-3.9) gm/dL Albumin/Globulin Ratio (1.0-2.1) Procalcitonin < 0.05 L (0.19-0.49) NG/ML Venous Blood Potassium (3.6-5.2) mmol/L Urine Osmolality (300-1000) mosm/kg Urine Opiates Screen (NEGATIVE) Ur Amphetamines Screen (NEGATIVE) 09/29/17 09/29/17 09/29/17 Range/Units 06:14 06:12 05:48 WBC 16.4 H D (4.8-10.8) K/uL RBC 4.47 (3.80-5.20) Mil/uL Hgb 12.5 (11.0-16.0) g/dL Hct 37.0 (34.0-47.0) % MCV 82.7 (81.0-99.0) fL MCH 27.9 (27.0-31.0) pg MCHC 33.7 (33.0-37.0) g/dL RDW 13.8 (11.5-14.5) % Plt Count 290 (130-400) K/uL MPV 8.7 (7.2-11.7) fL Neut % (Auto) 86.3 H (50.0-75.0) % Lymph % (Auto) 7.0 L (20.0-40.0) % [place] % (Auto) 6.6 (0.0-10.0) % Eos % (Auto) 0.0 (0.0-4.0) % Baso % (Auto) 0.1 (0.0-2.0) % Neut # (Auto) 14.1 H (1.8-7.0) K/uL Lymph # (Auto) 1.1 (1.0-4.3) K/uL [place] # (Auto) 1.1 H (0.0-0.8) K/uL Eos # (Auto) 0.0 (0.0-0.7) K/uL Baso # (Auto) 0.0 (0.0-0.2) K/uL Neutrophils % (Manual) 89 H (50-75) % Lymphocytes % (Manual) 8 L (20-40) % Monocytes % (Manual) 3 (0-10) % Platelet Estimate Normal (NORMAL) RBC Morphology Normal Puncture Site pCO2 (35-45) mm/Hg pO2 (80-100) mm/Hg HCO3 (21-28) mmol/L ABG pH (7.35-7.45) ABG Total CO2 (22-28) mmol/L ABG O2 Saturation (95-98) % ABG Base Excess (-2.0-3.0) mmol/L ABG Hemoglobin (11.7-17.4) g/dL ABG Carboxyhemoglobin (0.5-1.5) % POC ABG HHb (Measured) (0.0-5.0) % ABG Methemoglobin (0.0-3.0) % Barry Test VBG pH (7.32-7.43) VBG pCO2 (40-60) mmHg VBG HCO3 mmol/L VBG Total CO2 (22-28) mmol/L VBG O2 Sat (Calc) (40-65) % VBG Base Excess (0.0-2.0) mmol/L VBG Potassium (3.6-5.2) mmol/L A-a O2 Difference mm/Hg Respiratory Index Hgb O2 Saturation (95.0-98.0) % Sodium 139 (132-148) mmol/l Chloride 102 (98-107) mmol/L Glucose (65-105) mg/dl Lactate (0.7-2.1) mmol/L FiO2 % Crit Value Called To Crit Value Called By Crit Value Read Back Blood Gas Notified Time Potassium 2.8 L (3.6-5.2) mmol/L Carbon Dioxide 22 (22-30) mmol/L Anion Gap 18 (10-20) BUN 4 L (7-17) mg/dL Creatinine 0.5 L (0.7-1.2) mg/dL Est GFR ( Amer) > 60 Est GFR (Non-Af Amer) > 60 POC Glucose (mg/dL) 119 H (65-110) mg/dL Random Glucose 99 (65-105) mg/dL Serum Osmolality (272-300) mosm/kg Lactic Acid (0.7-2.1) mmol/L Calcium 7.9 L (8.6-10.4) mg/dl Phosphorus (2.5-4.5) mg/dL Magnesium (1.6-2.3) mg/dL Total Bilirubin 0.4 (0.2-1.3) mg/dL AST 17 (14-36) U/L ALT < 6 L D (9-52) U/L Alkaline Phosphatase 43 (38-126) U/L Ammonia (9-33) umol/L Total Protein 7.4 (6.3-8.3) g/dL Albumin 3.8 (3.5-5.0) g/dL Globulin 3.6 (2.2-3.9) gm/dL Albumin/Globulin Ratio 1.0 (1.0-2.1) Procalcitonin (0.19-0.49) NG/ML Venous Blood Potassium (3.6-5.2) mmol/L Urine Osmolality (300-1000) mosm/kg Urine Opiates Screen (NEGATIVE) Ur Amphetamines Screen (NEGATIVE) 09/29/17 09/28/17 09/28/17 Range/Units 05:35 23:40 20:20 WBC 9.9 D (4.8-10.8) K/uL RBC 4.79 (3.80-5.20) Mil/uL Hgb 13.2 (11.0-16.0) g/dL Hct 39.9 (34.0-47.0) % MCV 83.2 (81.0-99.0) fL MCH 27.5 (27.0-31.0) pg MCHC 33.1 (33.0-37.0) g/dL RDW 14.4 (11.5-14.5) % Plt Count 282 (130-400) K/uL MPV 8.5 (7.2-11.7) fL Neut % (Auto) 92.7 H (50.0-75.0) % Lymph % (Auto) 3.9 L (20.0-40.0) % [place] % (Auto) 3.0 (0.0-10.0) % Eos % (Auto) 0.0 (0.0-4.0) % Baso % (Auto) 0.4 (0.0-2.0) % Neut # (Auto) 9.2 H (1.8-7.0) K/uL Lymph # (Auto) 0.4 L (1.0-4.3) K/uL [place] # (Auto) 0.3 (0.0-0.8) K/uL Eos # (Auto) 0.0 (0.0-0.7) K/uL Baso # (Auto) 0.0 (0.0-0.2) K/uL Neutrophils % (Manual) 95 H (50-75) % Lymphocytes % (Manual) 4 L (20-40) % Monocytes % (Manual) 1 (0-10) % Platelet Estimate Normal (NORMAL) RBC Morphology Puncture Site pCO2 (35-45) mm/Hg pO2 27 L (80-100) mm/Hg HCO3 (21-28) mmol/L ABG pH (7.35-7.45) ABG Total CO2 (22-28) mmol/L ABG O2 Saturation (95-98) % ABG Base Excess (-2.0-3.0) mmol/L ABG Hemoglobin (11.7-17.4) g/dL ABG Carboxyhemoglobin (0.5-1.5) % POC ABG HHb (Measured) (0.0-5.0) % ABG Methemoglobin (0.0-3.0) % Barry Test VBG pH 7.49 H (7.32-7.43) VBG pCO2 29 L (40-60) mmHg VBG HCO3 23.7 mmol/L VBG Total CO2 23.0 (22-28) mmol/L VBG O2 Sat (Calc) 56.9 (40-65) % VBG Base Excess -0.2 L (0.0-2.0) mmol/L VBG Potassium 2.5 L* (3.6-5.2) mmol/L A-a O2 Difference mm/Hg Respiratory Index Hgb O2 Saturation (95.0-98.0) % Sodium 137.0 (132-148) mmol/l Chloride 104.0 (98-107) mmol/L Glucose 110 H (65-105) mg/dl Lactate 1.5 (0.7-2.1) mmol/L FiO2 % Crit Value Called To Reginald sanchez rn Crit Value Called By Coleman resistance welder Crit Value Read Back Y Blood Gas Notified Time 540 Potassium (3.6-5.2) mmol/L Carbon Dioxide (22-30) mmol/L Anion Gap (10-20) BUN (7-17) mg/dL Creatinine (0.7-1.2) mg/dL Est GFR ( Amer) Est GFR (Non-Af Amer) POC Glucose (mg/dL) 105 (65-110) mg/dL Random Glucose (65-105) mg/dL Serum Osmolality (272-300) mosm/kg Lactic Acid (0.7-2.1) mmol/L Calcium (8.6-10.4) mg/dl Phosphorus (2.5-4.5) mg/dL Magnesium (1.6-2.3) mg/dL Total Bilirubin (0.2-1.3) mg/dL AST (14-36) U/L ALT (9-52) U/L Alkaline Phosphatase (38-126) U/L Ammonia (9-33) umol/L Total Protein (6.3-8.3) g/dL Albumin (3.5-5.0) g/dL Globulin (2.2-3.9) gm/dL Albumin/Globulin Ratio (1.0-2.1) Procalcitonin (0.19-0.49) NG/ML Venous Blood Potassium 2.5 L* (3.6-5.2) mmol/L Urine Osmolality (300-1000) mosm/kg Urine Opiates Screen (NEGATIVE) Ur Amphetamines Screen (NEGATIVE) 09/28/17 09/28/17 09/28/17 Range/Units 20:20 20:20 20:14 WBC (4.8-10.8) K/uL RBC (3.80-5.20) Mil/uL Hgb (11.0-16.0) g/dL Hct (34.0-47.0) % MCV (81.0-99.0) fL MCH (27.0-31.0) pg MCHC (33.0-37.0) g/dL RDW (11.5-14.5) % Plt Count (130-400) K/uL MPV (7.2-11.7) fL Neut % (Auto) (50.0-75.0) % Lymph % (Auto) (20.0-40.0) % [place] % (Auto) (0.0-10.0) % Eos % (Auto) (0.0-4.0) % Baso % (Auto) (0.0-2.0) % Neut # (Auto) (1.8-7.0) K/uL Lymph # (Auto) (1.0-4.3) K/uL [place] # (Auto) (0.0-0.8) K/uL Eos # (Auto) (0.0-0.7) K/uL Baso # (Auto) (0.0-0.2) K/uL Neutrophils % (Manual) (50-75) % Lymphocytes % (Manual) (20-40) % Monocytes % (Manual) (0-10) % Platelet Estimate (NORMAL) RBC Morphology Puncture Site pCO2 (35-45) mm/Hg pO2 41 (80-100) mm/Hg HCO3 (21-28) mmol/L ABG pH (7.35-7.45) ABG Total CO2 (22-28) mmol/L ABG O2 Saturation (95-98) % ABG Base Excess (-2.0-3.0) mmol/L ABG Hemoglobin (11.7-17.4) g/dL ABG Carboxyhemoglobin (0.5-1.5) % POC ABG HHb (Measured) (0.0-5.0) % ABG Methemoglobin (0.0-3.0) % Barry Test VBG pH 7.38 (7.32-7.43) VBG pCO2 31 L (40-60) mmHg VBG HCO3 19.9 mmol/L VBG Total CO2 19.3 L (22-28) mmol/L VBG O2 Sat (Calc) 80.7 H (40-65) % VBG Base Excess -5.7 L (0.0-2.0) mmol/L VBG Potassium 3.1 L (3.6-5.2) mmol/L A-a O2 Difference mm/Hg Respiratory Index Hgb O2 Saturation (95.0-98.0) % Sodium 136 134.0 (132-148) mmol/l Chloride 100 100.0 (98-107) mmol/L Glucose 162 H (65-105) mg/dl Lactate 2.4 H (0.7-2.1) mmol/L FiO2 % Crit Value Called To Crit Value Called By Crit Value Read Back Blood Gas Notified Time Potassium 3.3 L (3.6-5.2) mmol/L Carbon Dioxide 17 L (22-30) mmol/L Anion Gap 22 H (10-20) BUN 6 L (7-17) mg/dL Creatinine 0.5 L (0.7-1.2) mg/dL Est GFR ( Amer) > 60 Est GFR (Non-Af Amer) > 60 POC Glucose (mg/dL) (65-110) mg/dL Random Glucose 157 H (65-105) mg/dL Serum Osmolality (272-300) mosm/kg Lactic Acid (0.7-2.1) mmol/L Calcium 7.6 L (8.6-10.4) mg/dl Phosphorus 1.0 L* (2.5-4.5) mg/dL Magnesium 1.7 (1.6-2.3) mg/dL Total Bilirubin 0.4 (0.2-1.3) mg/dL AST 18 (14-36) U/L ALT 8 L D (9-52) U/L Alkaline Phosphatase < 20 L D (38-126) U/L Ammonia (9-33) umol/L Total Protein 7.5 (6.3-8.3) g/dL Albumin 4.2 (3.5-5.0) g/dL Globulin 3.3 (2.2-3.9) gm/dL Albumin/Globulin Ratio 1.3 (1.0-2.1) Procalcitonin < 0.05 L (0.19-0.49) NG/ML Venous Blood Potassium 3.1 L (3.6-5.2) mmol/L Urine Osmolality (300-1000) mosm/kg Urine Opiates Screen (NEGATIVE) Ur Amphetamines Screen (NEGATIVE) 09/28/17 09/28/17 09/28/17 Range/Units 20:07 17:31 16:48 WBC (4.8-10.8) K/uL RBC (3.80-5.20) Mil/uL Hgb (11.0-16.0) g/dL Hct (34.0-47.0) % MCV (81.0-99.0) fL MCH (27.0-31.0) pg MCHC (33.0-37.0) g/dL RDW (11.5-14.5) % Plt Count (130-400) K/uL MPV (7.2-11.7) fL Neut % (Auto) (50.0-75.0) % Lymph % (Auto) (20.0-40.0) % Duval % (Auto) (0.0-10.0) % Eos % (Auto) (0.0-4.0) % Baso % (Auto) (0.0-2.0) % Neut # (Auto) (1.8-7.0) K/uL Lymph # (Auto) (1.0-4.3) K/uL Duval # (Auto) (0.0-0.8) K/uL Eos # (Auto) (0.0-0.7) K/uL Baso # (Auto) (0.0-0.2) K/uL Neutrophils % (Manual) (50-75) % Lymphocytes % (Manual) (20-40) % Monocytes % (Manual) (0-10) % Platelet Estimate (NORMAL) RBC Morphology Puncture Site pCO2 (35-45) mm/Hg pO2 35 (80-100) mm/Hg HCO3 (21-28) mmol/L ABG pH (7.35-7.45) ABG Total CO2 (22-28) mmol/L ABG O2 Saturation (95-98) % ABG Base Excess (-2.0-3.0) mmol/L ABG Hemoglobin (11.7-17.4) g/dL ABG Carboxyhemoglobin (0.5-1.5) % POC ABG HHb (Measured) (0.0-5.0) % ABG Methemoglobin (0.0-3.0) % Barry Test VBG pH 7.28 L (7.32-7.43) VBG pCO2 37 L (40-60) mmHg VBG HCO3 17.2 mmol/L VBG Total CO2 18.5 L (22-28) mmol/L VBG O2 Sat (Calc) 66.6 H (40-65) % VBG Base Excess -8.6 L (0.0-2.0) mmol/L VBG Potassium 5.0 (3.6-5.2) mmol/L A-a O2 Difference mm/Hg Respiratory Index Hgb O2 Saturation (95.0-98.0) % Sodium 137.0 (132-148) mmol/l Chloride 100.0 (98-107) mmol/L Glucose 241 H (65-105) mg/dl Lactate 4.7 H* (0.7-2.1) mmol/L FiO2 % Crit Value Called To Dr. kincaid Crit Value Called By Effie Crit Value Read Back Y Blood Gas Notified Time 1739 Potassium (3.6-5.2) mmol/L Carbon Dioxide (22-30) mmol/L Anion Gap (10-20) BUN (7-17) mg/dL Creatinine (0.7-1.2) mg/dL Est GFR ( Amer) Est GFR (Non-Af Amer) POC Glucose (mg/dL) 185 H (65-110) mg/dL Random Glucose (65-105) mg/dL Serum Osmolality 294 (272-300) mosm/kg Lactic Acid (0.7-2.1) mmol/L Calcium (8.6-10.4) mg/dl Phosphorus (2.5-4.5) mg/dL Magnesium (1.6-2.3) mg/dL Total Bilirubin (0.2-1.3) mg/dL AST (14-36) U/L ALT (9-52) U/L Alkaline Phosphatase (38-126) U/L Ammonia (9-33) umol/L Total Protein (6.3-8.3) g/dL Albumin (3.5-5.0) g/dL Globulin (2.2-3.9) gm/dL Albumin/Globulin Ratio (1.0-2.1) Procalcitonin (0.19-0.49) NG/ML Venous Blood Potassium 5.0 (3.6-5.2) mmol/L Urine Osmolality (300-1000) mosm/kg Urine Opiates Screen (NEGATIVE) Ur Amphetamines Screen (NEGATIVE) 09/28/17 09/28/17 09/28/17 Range/Units 16:26 15:20 15:20 WBC (4.8-10.8) K/uL RBC (3.80-5.20) Mil/uL Hgb (11.0-16.0) g/dL Hct (34.0-47.0) % MCV (81.0-99.0) fL MCH (27.0-31.0) pg MCHC (33.0-37.0) g/dL RDW (11.5-14.5) % Plt Count (130-400) K/uL MPV (7.2-11.7) fL Neut % (Auto) (50.0-75.0) % Lymph % (Auto) (20.0-40.0) % Duval % (Auto) (0.0-10.0) % Eos % (Auto) (0.0-4.0) % Baso % (Auto) (0.0-2.0) % Neut # (Auto) (1.8-7.0) K/uL Lymph # (Auto) (1.0-4.3) K/uL Duval # (Auto) (0.0-0.8) K/uL Eos # (Auto) (0.0-0.7) K/uL Baso # (Auto) (0.0-0.2) K/uL Neutrophils % (Manual) (50-75) % Lymphocytes % (Manual) (20-40) % Monocytes % (Manual) (0-10) % Platelet Estimate (NORMAL) RBC Morphology Puncture Site pCO2 (35-45) mm/Hg pO2 (80-100) mm/Hg HCO3 (21-28) mmol/L ABG pH (7.35-7.45) ABG Total CO2 (22-28) mmol/L ABG O2 Saturation (95-98) % ABG Base Excess (-2.0-3.0) mmol/L ABG Hemoglobin (11.7-17.4) g/dL ABG Carboxyhemoglobin (0.5-1.5) % POC ABG HHb (Measured) (0.0-5.0) % ABG Methemoglobin (0.0-3.0) % Barry Test VBG pH (7.32-7.43) VBG pCO2 (40-60) mmHg VBG HCO3 mmol/L VBG Total CO2 (22-28) mmol/L VBG O2 Sat (Calc) (40-65) % VBG Base Excess (0.0-2.0) mmol/L VBG Potassium (3.6-5.2) mmol/L A-a O2 Difference mm/Hg Respiratory Index Hgb O2 Saturation (95.0-98.0) % Sodium (132-148) mmol/l Chloride (98-107) mmol/L Glucose (65-105) mg/dl Lactate (0.7-2.1) mmol/L FiO2 % Crit Value Called To Crit Value Called By Crit Value Read Back Blood Gas Notified Time Potassium (3.6-5.2) mmol/L Carbon Dioxide (22-30) mmol/L Anion Gap (10-20) BUN (7-17) mg/dL Creatinine (0.7-1.2) mg/dL Est GFR ( Amer) Est GFR (Non-Af Amer) POC Glucose (mg/dL) 237 H (65-110) mg/dL Random Glucose (65-105) mg/dL Serum Osmolality (272-300) mosm/kg Lactic Acid 3.5 H (0.7-2.1) mmol/L Calcium (8.6-10.4) mg/dl Phosphorus (2.5-4.5) mg/dL Magnesium (1.6-2.3) mg/dL Total Bilirubin (0.2-1.3) mg/dL AST (14-36) U/L ALT (9-52) U/L Alkaline Phosphatase (38-126) U/L Ammonia (9-33) umol/L Total Protein (6.3-8.3) g/dL Albumin (3.5-5.0) g/dL Globulin (2.2-3.9) gm/dL Albumin/Globulin Ratio (1.0-2.1) Procalcitonin (0.19-0.49) NG/ML Venous Blood Potassium (3.6-5.2) mmol/L Urine Osmolality 291 L (300-1000) mosm/kg Urine Opiates Screen (NEGATIVE) Ur Amphetamines Screen (NEGATIVE) 09/28/17 09/28/17 09/28/17 Range/Units 15:14 14:47 14:45 WBC (4.8-10.8) K/uL RBC (3.80-5.20) Mil/uL Hgb (11.0-16.0) g/dL Hct (34.0-47.0) % MCV (81.0-99.0) fL MCH (27.0-31.0) pg MCHC (33.0-37.0) g/dL RDW (11.5-14.5) % Plt Count (130-400) K/uL MPV (7.2-11.7) fL Neut % (Auto) (50.0-75.0) % Lymph % (Auto) (20.0-40.0) % [place] % (Auto) (0.0-10.0) % Eos % (Auto) (0.0-4.0) % Baso % (Auto) (0.0-2.0) % Neut # (Auto) (1.8-7.0) K/uL Lymph # (Auto) (1.0-4.3) K/uL [place] # (Auto) (0.0-0.8) K/uL Eos # (Auto) (0.0-0.7) K/uL Baso # (Auto) (0.0-0.2) K/uL Neutrophils % (Manual) (50-75) % Lymphocytes % (Manual) (20-40) % Monocytes % (Manual) (0-10) % Platelet Estimate (NORMAL) RBC Morphology Puncture Site pCO2 (35-45) mm/Hg pO2 (80-100) mm/Hg HCO3 (21-28) mmol/L ABG pH (7.35-7.45) ABG Total CO2 (22-28) mmol/L ABG O2 Saturation (95-98) % ABG Base Excess (-2.0-3.0) mmol/L ABG Hemoglobin (11.7-17.4) g/dL ABG Carboxyhemoglobin (0.5-1.5) % POC ABG HHb (Measured) (0.0-5.0) % ABG Methemoglobin (0.0-3.0) % Barry Test VBG pH (7.32-7.43) VBG pCO2 (40-60) mmHg VBG HCO3 mmol/L VBG Total CO2 (22-28) mmol/L VBG O2 Sat (Calc) (40-65) % VBG Base Excess (0.0-2.0) mmol/L VBG Potassium (3.6-5.2) mmol/L A-a O2 Difference mm/Hg Respiratory Index Hgb O2 Saturation (95.0-98.0) % Sodium (132-148) mmol/l Chloride (98-107) mmol/L Glucose (65-105) mg/dl Lactate (0.7-2.1) mmol/L FiO2 % Crit Value Called To Crit Value Called By Crit Value Read Back Blood Gas Notified Time Potassium (3.6-5.2) mmol/L Carbon Dioxide (22-30) mmol/L Anion Gap (10-20) BUN (7-17) mg/dL Creatinine (0.7-1.2) mg/dL Est GFR ( Amer) Est GFR (Non-Af Amer) POC Glucose (mg/dL) 214 H 60 L 57 L (65-110) mg/dL Random Glucose (65-105) mg/dL Serum Osmolality (272-300) mosm/kg Lactic Acid (0.7-2.1) mmol/L Calcium (8.6-10.4) mg/dl Phosphorus (2.5-4.5) mg/dL Magnesium (1.6-2.3) mg/dL Total Bilirubin (0.2-1.3) mg/dL AST (14-36) U/L ALT (9-52) U/L Alkaline Phosphatase (38-126) U/L Ammonia (9-33) umol/L Total Protein (6.3-8.3) g/dL Albumin (3.5-5.0) g/dL Globulin (2.2-3.9) gm/dL Albumin/Globulin Ratio (1.0-2.1) Procalcitonin (0.19-0.49) NG/ML Venous Blood Potassium (3.6-5.2) mmol/L Urine Osmolality (300-1000) mosm/kg Urine Opiates Screen (NEGATIVE) Ur Amphetamines Screen (NEGATIVE) 09/28/17 09/28/17 09/28/17 Range/Units 14:24 13:45 12:19 WBC (4.8-10.8) K/uL RBC (3.80-5.20) Mil/uL Hgb (11.0-16.0) g/dL Hct (34.0-47.0) % MCV (81.0-99.0) fL MCH (27.0-31.0) pg MCHC (33.0-37.0) g/dL RDW (11.5-14.5) % Plt Count (130-400) K/uL MPV (7.2-11.7) fL Neut % (Auto) (50.0-75.0) % Lymph % (Auto) (20.0-40.0) % [place] % (Auto) (0.0-10.0) % Eos % (Auto) (0.0-4.0) % Baso % (Auto) (0.0-2.0) % Neut # (Auto) (1.8-7.0) K/uL Lymph # (Auto) (1.0-4.3) K/uL [place] # (Auto) (0.0-0.8) K/uL Eos # (Auto) (0.0-0.7) K/uL Baso # (Auto) (0.0-0.2) K/uL Neutrophils % (Manual) (50-75) % Lymphocytes % (Manual) (20-40) % Monocytes % (Manual) (0-10) % Platelet Estimate (NORMAL) RBC Morphology Puncture Site Rradial pCO2 29 L (35-45) mm/Hg pO2 128 H (80-100) mm/Hg HCO3 18.0 L (21-28) mmol/L ABG pH 7.34 L (7.35-7.45) ABG Total CO2 16.5 L (22-28) mmol/L ABG O2 Saturation 97.4 (95-98) % ABG Base Excess -8.9 L (-2.0-3.0) mmol/L ABG Hemoglobin 12.2 (11.7-17.4) g/dL ABG Carboxyhemoglobin 0.3 L (0.5-1.5) % POC ABG HHb (Measured) 2.6 (0.0-5.0) % ABG Methemoglobin 0.7 (0.0-3.0) % Barry Test Pos VBG pH (7.32-7.43) VBG pCO2 (40-60) mmHg VBG HCO3 mmol/L VBG Total CO2 (22-28) mmol/L VBG O2 Sat (Calc) (40-65) % VBG Base Excess (0.0-2.0) mmol/L VBG Potassium (3.6-5.2) mmol/L A-a O2 Difference -15.0 mm/Hg Respiratory Index -0.1 Hgb O2 Saturation 96.3 (95.0-98.0) % Sodium (132-148) mmol/l Chloride (98-107) mmol/L Glucose (65-105) mg/dl Lactate (0.7-2.1) mmol/L FiO2 21.0 % Crit Value Called To Crit Value Called By Crit Value Read Back Blood Gas Notified Time Potassium (3.6-5.2) mmol/L Carbon Dioxide (22-30) mmol/L Anion Gap (10-20) BUN (7-17) mg/dL Creatinine (0.7-1.2) mg/dL Est GFR ( Amer) Est GFR (Non-Af Amer) POC Glucose (mg/dL) (65-110) mg/dL Random Glucose (65-105) mg/dL Serum Osmolality (272-300) mosm/kg Lactic Acid (0.7-2.1) mmol/L Calcium (8.6-10.4) mg/dl Phosphorus (2.5-4.5) mg/dL Magnesium (1.6-2.3) mg/dL Total Bilirubin (0.2-1.3) mg/dL AST (14-36) U/L ALT (9-52) U/L Alkaline Phosphatase (38-126) U/L Ammonia < 9 L (9-33) umol/L Total Protein (6.3-8.3) g/dL Albumin (3.5-5.0) g/dL Globulin (2.2-3.9) gm/dL Albumin/Globulin Ratio (1.0-2.1) Procalcitonin (0.19-0.49) NG/ML Venous Blood Potassium (3.6-5.2) mmol/L Urine Osmolality (300-1000) mosm/kg Urine Opiates Screen Negative (NEGATIVE) Ur Amphetamines Screen Negative (NEGATIVE) Laboratory Results - last 24 hr 09/28/17 09/28/17 09/28/17 12:19 13:45 14:24 WBC RBC Hgb Hct MCV MCH MCHC RDW Plt Count MPV Neut % (Auto) Lymph % (Auto) [place] % (Auto) Eos % (Auto) Baso % (Auto) Neut # (Auto) Lymph # (Auto) [place] # (Auto) Eos # (Auto) Baso # (Auto) Neutrophils % (Manual) Lymphocytes % (Manual) Monocytes % (Manual) Platelet Estimate RBC Morphology Puncture Site Rradial pCO2 29 L pO2 128 H HCO3 18.0 L ABG pH 7.34 L ABG Total CO2 16.5 L ABG O2 Saturation 97.4 ABG Base Excess -8.9 L ABG Hemoglobin 12.2 ABG Carboxyhemoglobin 0.3 L POC ABG HHb (Measured) 2.6 ABG Methemoglobin 0.7 Barry Test Pos VBG pH VBG pCO2 VBG HCO3 VBG Total CO2 VBG O2 Sat (Calc) VBG Base Excess VBG Potassium A-a O2 Difference -15.0 Respiratory Index -0.1 Hgb O2 Saturation 96.3 Sodium Chloride Glucose Lactate FiO2 21.0 Crit Value Called To Crit Value Called By Crit Value Read Back Blood Gas Notified Time Potassium Carbon Dioxide Anion Gap BUN Creatinine Est GFR ( Amer) Est GFR (Non-Af Amer) POC Glucose (mg/dL) Random Glucose Serum Osmolality Lactic Acid Calcium Phosphorus Magnesium Total Bilirubin AST ALT Alkaline Phosphatase Ammonia < 9 L Total Protein Albumin Globulin Albumin/Globulin Ratio Procalcitonin Venous Blood Potassium Urine Osmolality Urine Opiates Screen Negative Ur Amphetamines Screen Negative 09/28/17 09/28/17 09/28/17 14:45 14:47 15:14 WBC RBC Hgb Hct MCV MCH MCHC RDW Plt Count MPV Neut % (Auto) Lymph % (Auto) [place] % (Auto) Eos % (Auto) Baso % (Auto) Neut # (Auto) Lymph # (Auto) [place] # (Auto) Eos # (Auto) Baso # (Auto) Neutrophils % (Manual) Lymphocytes % (Manual) Monocytes % (Manual) Platelet Estimate RBC Morphology Puncture Site pCO2 pO2 HCO3 ABG pH ABG Total CO2 ABG O2 Saturation ABG Base Excess ABG Hemoglobin ABG Carboxyhemoglobin POC ABG HHb (Measured) ABG Methemoglobin Barry Test VBG pH VBG pCO2 VBG HCO3 VBG Total CO2 VBG O2 Sat (Calc) VBG Base Excess VBG Potassium A-a O2 Difference Respiratory Index Hgb O2 Saturation Sodium Chloride Glucose Lactate FiO2 Crit Value Called To Crit Value Called By Crit Value Read Back Blood Gas Notified Time Potassium Carbon Dioxide Anion Gap BUN Creatinine Est GFR ( Amer) Est GFR (Non-Af Amer) POC Glucose (mg/dL) 57 L 60 L 214 H Random Glucose Serum Osmolality Lactic Acid Calcium Phosphorus Magnesium Total Bilirubin AST ALT Alkaline Phosphatase Ammonia Total Protein Albumin Globulin Albumin/Globulin Ratio Procalcitonin Venous Blood Potassium Urine Osmolality Urine Opiates Screen Ur Amphetamines Screen 09/28/17 09/28/17 09/28/17 15:20 15:20 16:26 WBC RBC Hgb Hct MCV MCH MCHC RDW Plt Count MPV Neut % (Auto) Lymph % (Auto) [place] % (Auto) Eos % (Auto) Baso % (Auto) Neut # (Auto) Lymph # (Auto) [place] # (Auto) Eos # (Auto) Baso # (Auto) Neutrophils % (Manual) Lymphocytes % (Manual) Monocytes % (Manual) Platelet Estimate RBC Morphology Puncture Site pCO2 pO2 HCO3 ABG pH ABG Total CO2 ABG O2 Saturation ABG Base Excess ABG Hemoglobin ABG Carboxyhemoglobin POC ABG HHb (Measured) ABG Methemoglobin Barry Test VBG pH VBG pCO2 VBG HCO3 VBG Total CO2 VBG O2 Sat (Calc) VBG Base Excess VBG Potassium A-a O2 Difference Respiratory Index Hgb O2 Saturation Sodium Chloride Glucose Lactate FiO2 Crit Value Called To Crit Value Called By Crit Value Read Back Blood Gas Notified Time Potassium Carbon Dioxide Anion Gap BUN Creatinine Est GFR ( Amer) Est GFR (Non-Af Amer) POC Glucose (mg/dL) 237 H Random Glucose Serum Osmolality Lactic Acid 3.5 H Calcium Phosphorus Magnesium Total Bilirubin AST ALT Alkaline Phosphatase Ammonia Total Protein Albumin Globulin Albumin/Globulin Ratio Procalcitonin Venous Blood Potassium Urine Osmolality 291 L Urine Opiates Screen Ur Amphetamines Screen 09/28/17 09/28/17 09/28/17 16:48 17:31 20:07 WBC RBC Hgb Hct MCV MCH MCHC RDW Plt Count MPV Neut % (Auto) Lymph % (Auto) [place] % (Auto) Eos % (Auto) Baso % (Auto) Neut # (Auto) Lymph # (Auto) [place] # (Auto) Eos # (Auto) Baso # (Auto) Neutrophils % (Manual) Lymphocytes % (Manual) Monocytes % (Manual) Platelet Estimate RBC Morphology Puncture Site pCO2 pO2 35 HCO3 ABG pH ABG Total CO2 ABG O2 Saturation ABG Base Excess ABG Hemoglobin ABG Carboxyhemoglobin POC ABG HHb (Measured) ABG Methemoglobin Barry Test VBG pH 7.28 L VBG pCO2 37 L VBG HCO3 17.2 VBG Total CO2 18.5 L VBG O2 Sat (Calc) 66.6 H VBG Base Excess -8.6 L VBG Potassium 5.0 A-a O2 Difference Respiratory Index Hgb O2 Saturation Sodium 137.0 Chloride 100.0 Glucose 241 H Lactate 4.7 H* FiO2 Crit Value Called To Dr. kincaid Crit Value Called By Effie Crit Value Read Back Y Blood Gas Notified Time 1739 Potassium Carbon Dioxide Anion Gap BUN Creatinine Est GFR ( Amer) Est GFR (Non-Af Amer) POC Glucose (mg/dL) 185 H Random Glucose Serum Osmolality 294 Lactic Acid Calcium Phosphorus Magnesium Total Bilirubin AST ALT Alkaline Phosphatase Ammonia Total Protein Albumin Globulin Albumin/Globulin Ratio Procalcitonin Venous Blood Potassium 5.0 Urine Osmolality Urine Opiates Screen Ur Amphetamines Screen 09/28/17 09/28/17 09/28/17 20:14 20:20 20:20 WBC RBC Hgb Hct MCV MCH MCHC RDW Plt Count MPV Neut % (Auto) Lymph % (Auto) [place] % (Auto) Eos % (Auto) Baso % (Auto) Neut # (Auto) Lymph # (Auto) [place] # (Auto) Eos # (Auto) Baso # (Auto) Neutrophils % (Manual) Lymphocytes % (Manual) Monocytes % (Manual) Platelet Estimate RBC Morphology Puncture Site pCO2 pO2 41 HCO3 ABG pH ABG Total CO2 ABG O2 Saturation ABG Base Excess ABG Hemoglobin ABG Carboxyhemoglobin POC ABG HHb (Measured) ABG Methemoglobin Barry Test VBG pH 7.38 VBG pCO2 31 L VBG HCO3 19.9 VBG Total CO2 19.3 L VBG O2 Sat (Calc) 80.7 H VBG Base Excess -5.7 L VBG Potassium 3.1 L A-a O2 Difference Respiratory Index Hgb O2 Saturation Sodium 134.0 136 Chloride 100.0 100 Glucose 162 H Lactate 2.4 H FiO2 Crit Value Called To Crit Value Called By Crit Value Read Back Blood Gas Notified Time Potassium 3.3 L Carbon Dioxide 17 L Anion Gap 22 H BUN 6 L Creatinine 0.5 L Est GFR ( Amer) > 60 Est GFR (Non-Af Amer) > 60 POC Glucose (mg/dL) Random Glucose 157 H Serum Osmolality Lactic Acid Calcium 7.6 L Phosphorus 1.0 L* Magnesium 1.7 Total Bilirubin 0.4 AST 18 ALT 8 L D Alkaline Phosphatase < 20 L D Ammonia Total Protein 7.5 Albumin 4.2 Globulin 3.3 Albumin/Globulin Ratio 1.3 Procalcitonin < 0.05 L Venous Blood Potassium 3.1 L Urine Osmolality Urine Opiates Screen Ur Amphetamines Screen 09/28/17 09/28/17 09/29/17 20:20 23:40 05:35 WBC 9.9 D RBC 4.79 Hgb 13.2 Hct 39.9 MCV 83.2 MCH 27.5 MCHC 33.1 RDW 14.4 Plt Count 282 MPV 8.5 Neut % (Auto) 92.7 H Lymph % (Auto) 3.9 L [place] % (Auto) 3.0 Eos % (Auto) 0.0 Baso % (Auto) 0.4 Neut # (Auto) 9.2 H Lymph # (Auto) 0.4 L [place] # (Auto) 0.3 Eos # (Auto) 0.0 Baso # (Auto) 0.0 Neutrophils % (Manual) 95 H Lymphocytes % (Manual) 4 L Monocytes % (Manual) 1 Platelet Estimate Normal RBC Morphology Puncture Site pCO2 pO2 27 L HCO3 ABG pH ABG Total CO2 ABG O2 Saturation ABG Base Excess ABG Hemoglobin ABG Carboxyhemoglobin POC ABG HHb (Measured) ABG Methemoglobin Barry Test VBG pH 7.49 H VBG pCO2 29 L VBG HCO3 23.7 VBG Total CO2 23.0 VBG O2 Sat (Calc) 56.9 VBG Base Excess -0.2 L VBG Potassium 2.5 L* A-a O2 Difference Respiratory Index Hgb O2 Saturation Sodium 137.0 Chloride 104.0 Glucose 110 H Lactate 1.5 FiO2 Crit Value Called To Reginald sanchez rn Crit Value Called By Coleman resistance welder Crit Value Read Back Y Blood Gas Notified Time 540 Potassium Carbon Dioxide Anion Gap BUN Creatinine Est GFR ( Amer) Est GFR (Non-Af Amer) POC Glucose (mg/dL) 105 Random Glucose Serum Osmolality Lactic Acid Calcium Phosphorus Magnesium Total Bilirubin AST ALT Alkaline Phosphatase Ammonia Total Protein Albumin Globulin Albumin/Globulin Ratio Procalcitonin Venous Blood Potassium 2.5 L* Urine Osmolality Urine Opiates Screen Ur Amphetamines Screen 09/29/17 09/29/17 09/29/17 05:48 06:12 06:14 WBC 16.4 H D RBC 4.47 Hgb 12.5 Hct 37.0 MCV 82.7 MCH 27.9 MCHC 33.7 RDW 13.8 Plt Count 290 MPV 8.7 Neut % (Auto) 86.3 H Lymph % (Auto) 7.0 L [place] % (Auto) 6.6 Eos % (Auto) 0.0 Baso % (Auto) 0.1 Neut # (Auto) 14.1 H Lymph # (Auto) 1.1 [place] # (Auto) 1.1 H Eos # (Auto) 0.0 Baso # (Auto) 0.0 Neutrophils % (Manual) 89 H Lymphocytes % (Manual) 8 L Monocytes % (Manual) 3 Platelet Estimate Normal RBC Morphology Normal Puncture Site pCO2 pO2 HCO3 ABG pH ABG Total CO2 ABG O2 Saturation ABG Base Excess ABG Hemoglobin ABG Carboxyhemoglobin POC ABG HHb (Measured) ABG Methemoglobin Barry Test VBG pH VBG pCO2 VBG HCO3 VBG Total CO2 VBG O2 Sat (Calc) VBG Base Excess VBG Potassium A-a O2 Difference Respiratory Index Hgb O2 Saturation Sodium 139 Chloride 102 Glucose Lactate FiO2 Crit Value Called To Crit Value Called By Crit Value Read Back Blood Gas Notified Time Potassium 2.8 L Carbon Dioxide 22 Anion Gap 18 BUN 4 L Creatinine 0.5 L Est GFR ( Amer) > 60 Est GFR (Non-Af Amer) > 60 POC Glucose (mg/dL) 119 H Random Glucose 99 Serum Osmolality Lactic Acid Calcium 7.9 L Phosphorus Magnesium Total Bilirubin 0.4 AST 17 ALT < 6 L D Alkaline Phosphatase 43 Ammonia Total Protein 7.4 Albumin 3.8 Globulin 3.6 Albumin/Globulin Ratio 1.0 Procalcitonin Venous Blood Potassium Urine Osmolality Urine Opiates Screen Ur Amphetamines Screen 09/29/17 09/29/17 09/29/17 07:01 09:10 09:10 WBC RBC Hgb Hct MCV MCH MCHC RDW Plt Count MPV Neut % (Auto) Lymph % (Auto) [place] % (Auto) Eos % (Auto) Baso % (Auto) Neut # (Auto) Lymph # (Auto) [place] # (Auto) Eos # (Auto) Baso # (Auto) Neutrophils % (Manual) Lymphocytes % (Manual) Monocytes % (Manual) Platelet Estimate RBC Morphology Puncture Site pCO2 pO2 HCO3 ABG pH ABG Total CO2 ABG O2 Saturation ABG Base Excess ABG Hemoglobin ABG Carboxyhemoglobin POC ABG HHb (Measured) ABG Methemoglobin Barry Test VBG pH VBG pCO2 VBG HCO3 VBG Total CO2 VBG O2 Sat (Calc) VBG Base Excess VBG Potassium A-a O2 Difference Respiratory Index Hgb O2 Saturation Sodium Chloride Glucose Lactate FiO2 Crit Value Called To Crit Value Called By Crit Value Read Back Blood Gas Notified Time Potassium Carbon Dioxide Anion Gap BUN Creatinine Est GFR ( Amer) Est GFR (Non-Af Amer) POC Glucose (mg/dL) Random Glucose Serum Osmolality 295 Lactic Acid Calcium Phosphorus 2.8 Magnesium 1.6 Total Bilirubin AST ALT Alkaline Phosphatase Ammonia Total Protein Albumin Globulin Albumin/Globulin Ratio Procalcitonin < 0.05 L Venous Blood Potassium Urine Osmolality Urine Opiates Screen Ur Amphetamines Screen 09/29/17 09/29/17 09/29/17 12:17 12:19 12:48 WBC RBC Hgb Hct MCV MCH MCHC RDW Plt Count MPV Neut % (Auto) Lymph % (Auto) [place] % (Auto) Eos % (Auto) Baso % (Auto) Neut # (Auto) Lymph # (Auto) [place] # (Auto) Eos # (Auto) Baso # (Auto) Neutrophils % (Manual) Lymphocytes % (Manual) Monocytes % (Manual) Platelet Estimate RBC Morphology Puncture Site pCO2 pO2 HCO3 ABG pH ABG Total CO2 ABG O2 Saturation ABG Base Excess ABG Hemoglobin ABG Carboxyhemoglobin POC ABG HHb (Measured) ABG Methemoglobin Barry Test VBG pH VBG pCO2 VBG HCO3 VBG Total CO2 VBG O2 Sat (Calc) VBG Base Excess VBG Potassium A-a O2 Difference Respiratory Index Hgb O2 Saturation Sodium Chloride Glucose Lactate FiO2 Crit Value Called To Crit Value Called By Crit Value Read Back Blood Gas Notified Time Potassium Carbon Dioxide Anion Gap BUN Creatinine Est GFR ( Amer) Est GFR (Non-Af Amer) POC Glucose (mg/dL) 64 L 55 L 143 H Random Glucose Serum Osmolality Lactic Acid Calcium Phosphorus Magnesium Total Bilirubin AST ALT Alkaline Phosphatase Ammonia Total Protein Albumin Globulin Albumin/Globulin Ratio Procalcitonin Venous Blood Potassium Urine Osmolality Urine Opiates Screen Ur Amphetamines Screen EKG/Cardiology Studies: Cardiology / EKG Studies 09/28/17 13:52 EKG [ELECTROCARDIOGRAM] Stat Comment: Mode Of Transportation: Reason For Exam: drug overdose 09/28/17 16:00 EKG [ELECTROCARDIOGRAM] Q4H Comment: Mode Of Transportation: Reason For Exam: prolonged QTC 09/28/17 20:00 EKG [ELECTROCARDIOGRAM] Q4H Comment: Mode Of Transportation: Reason For Exam: prolonged QTC 09/29/17 00:00 EKG [ELECTROCARDIOGRAM] Q4H Comment: Mode Of Transportation: Reason For Exam: prolonged QTC 09/29/17 04:00 EKG [ELECTROCARDIOGRAM] Q4H Comment: Mode Of Transportation: Reason For Exam: prolonged QTC 09/29/17 08:01 EKG [ELECTROCARDIOGRAM] Stat Comment: Mode Of Transportation: Reason For Exam: qtc Critical Care Progress Note - Nutrition Nutrition: Nutrition Category Date Time Status Liquid Diet [DIET] Diets 09/29/17 Lunch Active Assessment/Plan - Assessment and Plan (Free Text) Plan: Patient seen and examined at bedside with above resident -Metabolic encephalopathy -altered Mental statsu -Drug Overdose Patient is hemodynamically stable;mentation improving compared . PAtient still remains confused, suspect delirium -?anoxic/hypoglycemic encephalopathy ? drug related encephalopsthy -replace all electrolytes -if repeat procalcitonin low will d/c abx -continue to monitor continue 1:1 - Date & Time Date: 09/29/17 Time: 12:57
[2017-09-29] MEDS: Enoxaparin 40 mg Syringe SC SCH (10:56)
[2017-09-29] MEDS: Vitamins A & D Oint UD Foilpak TOP SCH ×2 (11:01→17:54)
--- NOTE | 2017-09-29 12:13 | PCM.PSYCH ---
Initial Psychiatric Evaluation - Initial Psychiatric Evaluation Legal Status: Other Chief Complaint (in patient's own words): I am in [place].' History of Present Illness and Precipitating Events: This is a 27 year old [place] female with unknown medical history who was found unresponsive by her roommates. She was found unresponsive with an empty bottle of Unisom 50mg, 60 tablets and Advil PM, 120 tablets with tablets and liquified content in the bottle. Today psychiatry was consulted. Patient appeared delirious. She is alert and awake, however she is disoriented to time place, and person. She is constantly talking to self since yesterday. However she is able to follow commands. She starts answering a question in Czech but then go back to her alutiiq language and starts talking to self. She remained delirious, suspicious and delusional throughout the interview. She is very tremulous and her whole-body is shaking. She is superficially cooperative but remained guarded and continued to have loose associations. She remained guarded about any auditory or visual hallucinations and suicidal ideation or any homicidal ideation. PMHx: Unknown PPsychHx: Unknown FHx: Unknown Current Medications: Active Medications Generic Name Dose Route Start Last Admin Trade Name Freq PRN Reason Stop Dose Admin Enoxaparin Sodium 40 mg 09/29/17 10:00 09/29/17 10:56 Lovenox SC 40 mg DAILY IAN Administration Acetylcysteine 5,900 mg/ 1,029.5 mls @ 64.344 mls/hr 09/28/17 21:00 09/28/17 22:02 Dextrose IVPB 09/29/17 12:59 64.344 mls/hr ONCE ONE Administration Dextrose/Sodium Chloride 1,000 mls @ 100 mls/hr 09/28/17 18:45 09/29/17 05:59 Dextrose 5%/0.9% Ns 1000 Ml IV Not Given .Q10H IAN Potassium Phosphate 15 mmole/ 255 mls @ 42.5 mls/hr 09/29/17 07:30 09/29/17 10:29 Sodium Chloride IV 09/29/17 13:29 42.5 mls/hr ONCE ONE Administration Potassium Chloride 10 meq in 100 mls @ 100 mls/hr 09/29/17 08:15 09/29/17 11: 03 Potassium Chloride 10 Meq/100 Ml IVPB 09/29/17 12:14 100 mls/hr Q1H IAN Administration Lorazepam 0.5 mg 09/29/17 11:12 Ativan IVP ONCE PRN Agitation Oxcarbazepine 150 mg 09/29/17 11:30 Trileptal PO BID IAN Pneumococcal Polyvalent Vaccine 0.5 ml 10/01/17 10:00 Pneumovax 23 Vaccine SC 10/01/17 10:01 .ONCE ONE Vitamin A 1 ea 09/29/17 10:00 09/29/17 11:01 Vitamin A & D Oint Ud Foilpak TOP 1 ea BID IAN Administration Past Psychiatric History - Past Psychiatric History Previous Treatment History: None Pertinent Medical Hx (Current Medical&Sleep Prob, Allergies): Allergies Allergy/AdvReac Type Severity Reaction Status Date / Time Unobtainable Allergy Verified 09/28/17 11:50 Review of Systems - Review of Systems All systems: reviewed and no additional remarkable complaints except - Psychiatric Psychiatric: Anxiety, Irritability Mental Status Examination - Personal Presentation Personal Presentation: Looks stated age - Affect Affect: Constricted - Motor Activity Motor Activity: Psychomotor Agitation - Reliability in Providing Information Reliability in Providing Information: Poor, due to alteration in thoughts, Poor , due to cognitve impairment, Other (delirious) - Speech Speech: Disorganized, Irrelevant, Tangential, Incoherent - Mood Mood: Anxious - Formal Thought Process Formal Thought Process: Delusions, Loosening of associations - Obsessions/Compulsions Obsessions: No Compulsions: No - Cognitive Functions Sensorium: Alert Attention/Concentration: Easily distracted Abstract Thinking: As evidence by abstract perception of proverbs Estimate of Intelligence: Below average Judgement: Imparied, as evidence by: Poor judgement, Imparied, as evidence by: Lack of insight into illness - Risk Risk: Diminished functioning - Strength & Assets Inventory Strength & Assets Inventory: Family support - Limitations Limitations: Living alone DSM 5 DX - DSM 5 DSM 5 Diagnosis: Delirium R/O Major depressive disorder single episode severe R/O Adjustment disorder - Recommended/Plan of Treatment Treatment Recommendations and Plan of Treatment: continue Ativan Continue Trileptal Psychiatry will follow-up
--- NOTE | 2017-09-29 12:17 | CP.PCM.CON ---
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 After speaking to her parents in [place] [facility], and her relatives, the following history is obtained. 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 She did not drink or smoke and had several roommates. For some reason, she ingested large quantities of advil pm and unisom yesterday night, and then, in regret, called her mother in [place] [facility] to confess that she had tried to kill herself. She was found about 10-12 hours later, unresponsive in hypoglycemic state, with a reported seizure. She has no history of prior suicide attempts, or bipolar disease, although father said she was an angry person with stressful tendencies. There is no history of drug use. Of note, she was also in the midst of being arranged for marriage and had a rejection from one of her potential suitors, as well as a missed paycheck due to a clerical error by her employer. She was brought to [facility] and since admission, has been quite tangential , disorganized and speaking in Tamil, trying to pick at things in the room, and hallucinating. There are no focal neurolgical deficits and she hasnt had any seizures since admission. Aunt and uncle as well as parents state that there is no family history of epilepsy, depression, or bipolar disease. ROS: unobtainable. PMH/PSH: none known FH/SH: college graduate. From [facility]. Has one sister. Speaks tamil and Malay. no tobacco, no etoh. Lives with several rooomates. All: not obtainable. on exam: Awake, tracks. PERRL. EOMI. CN 2-12 normal. speech is fluent in tamil, but not answering questions posed. Instead she speaks to me as if i am her mother, and speaks to people not in the room. She jumps from one topic to another, alternating between tamil mainly and at times lao. Follows commands sporadically. Does not name or repeat. Face is symmetric. Bilateral high amplitude resting tremor. +2 dtr ul and ll bl. Good strength. She is moving all extremities well. Gait is not tested. Past Patient History - Infectious Disease Hx of Infectious Diseases: None - Tetanus Immunizations Tetanus Immunization: Unknown - Past Medical History & Family History Past Medical History?: No - Past Social History Smoking Status: Unknown If Ever Smoked - MUSCULOSKELETAL/RHEUMATOLOGICAL Hx Falls: No - PSYCHIATRIC Hx Substance Use: (PT NONVERBAL AT THIS TIME) Meds Allergies/Adverse Reactions: Allergies Allergy/AdvReac Type Severity Reaction Status Date / Time Unobtainable Allergy Verified 09/28/17 11:50 - Medications Medications: Current Medications Enoxaparin Sodium (Lovenox) 40 mg SC DAILY [facility] Last Admin: 09/29/17 10:56 Dose: 40 mg Acetylcysteine 5,900 mg/ (Dextrose) 1,029.5 mls @ 64.344 mls/hr IVPB ONCE ONE Stop: 09/29/17 12:59 Last Admin: 09/28/17 22:02 Dose: 64.344 mls/hr Dextrose/Sodium Chloride (Dextrose 5%/0.9% Ns 1000 Ml) 1,000 mls @ 100 mls/hr IV .Q10H [facility] Last Admin: 09/29/17 05:59 Dose: Not Given Potassium Phosphate 15 mmole/ (Sodium Chloride) 255 mls @ 42.5 mls/hr IV ONCE ONE Stop: 09/29/17 13:29 Last Admin: 09/29/17 10:29 Dose: 42.5 mls/hr Lorazepam (Ativan) 0.5 mg IVP ONCE PRN PRN Reason: Agitation Oxcarbazepine (Trileptal) 150 mg PO BID [facility] Pneumococcal Polyvalent Vaccine (Pneumovax 23 Vaccine) 0.5 ml SC .ONCE ONE Stop: 10/01/17 10:01 Vitamin A (Vitamin A & D Oint Ud Foilpak) 1 ea TOP BID [facility] Last Admin: 09/29/17 11:01 Dose: 1 ea Results - Vital Signs Recent Vital Signs: Last Vital Signs Temp 97.6 F 09/29/17 08:00 Pulse 123 H 09/29/17 11:00 Resp 15 09/29/17 11:00 BP 114/63 09/29/17 10:59 Pulse Ox 100 09/29/17 11:00 - Labs Result Diagrams: 09/29/17 06:12 09/29/17 17:48 Labs: Laboratory Results - last 24 hr 09/28/17 09/28/17 09/28/17 12:19 12:19 12:19 WBC 5.6 RBC 4.79 Hgb 13.6 Hct 39.8 MCV 83.1 MCH 28.4 MCHC 34.1 RDW 14.0 Plt Count 292 MPV 8.8 Neut % (Auto) 65.7 Lymph % (Auto) 27.9 Lanier % (Auto) 5.3 Eos % (Auto) 0.4 Baso % (Auto) 0.7 Neut # (Auto) 3.7 Lymph # (Auto) 1.6 Lanier # (Auto) 0.3 Eos # (Auto) 0.0 Baso # (Auto) 0.0 Neutrophils % (Manual) Lymphocytes % (Manual) Monocytes % (Manual) Platelet Estimate RBC Morphology Puncture Site pCO2 pO2 HCO3 ABG pH ABG Total CO2 ABG O2 Saturation ABG Base Excess ABG Hemoglobin ABG Carboxyhemoglobin POC ABG HHb (Measured) ABG Methemoglobin Barry Test VBG pH VBG pCO2 VBG HCO3 VBG Total CO2 VBG O2 Sat (Calc) VBG Base Excess VBG Potassium A-a O2 Difference Respiratory Index Hgb O2 Saturation Glucose Lactate FiO2 Crit Value Called To Crit Value Called By Crit Value Read Back Blood Gas Notified Time Sodium 139 Potassium 3.5 L Chloride 104 Carbon Dioxide 19 L Anion Gap 19 BUN 8 Creatinine 0.6 L Est GFR ( Amer) > 60 Est GFR (Non-Af Amer) > 60 POC Glucose (mg/dL) Random Glucose 61 L Serum Osmolality Lactic Acid Calcium 8.8 Phosphorus Magnesium Total Bilirubin 0.7 AST 27 ALT < 6 L Alkaline Phosphatase 67 Ammonia Total Creatine Kinase 86 Total Protein 8.2 Albumin 4.1 Globulin 4.1 H Albumin/Globulin Ratio 1.0 Procalcitonin Venous Blood Potassium Urine Color Yellow Urine Clarity Clear Urine pH 6.0 Ur Specific Jackson 1.006 Urine Protein Negative Urine Glucose (UA) Normal Urine Ketones Negative Urine Blood Negative Urine Nitrate Negative Urine Bilirubin Negative Urine Urobilinogen Normal Ur Leukocyte Esterase Neg Urine WBC (Auto) < 1 Urine RBC (Auto) < 1 Ur Squamous Epith Cells < 1 Urine Osmolality Salicylates Urine Opiates Screen Urine Methadone Screen Acetaminophen Ur Barbiturates Screen Ur Phencyclidine Scrn Ur Amphetamines Screen U Benzodiazepines Scrn U Oth Cocaine Metabols U Cannabinoids Screen Alcohol, Quantitative < 10 09/28/17 09/28/17 09/28/17 12:19 12:19 13:45 WBC RBC Hgb Hct MCV MCH MCHC RDW Plt Count MPV Neut % (Auto) Lymph % (Auto) Lanier % (Auto) Eos % (Auto) Baso % (Auto) Neut # (Auto) Lymph # (Auto) Lanier # (Auto) Eos # (Auto) Baso # (Auto) Neutrophils % (Manual) Lymphocytes % (Manual) Monocytes % (Manual) Platelet Estimate RBC Morphology Puncture Site Rradial pCO2 29 L pO2 128 H HCO3 18.0 L ABG pH 7.34 L ABG Total CO2 16.5 L ABG O2 Saturation 97.4 ABG Base Excess -8.9 L ABG Hemoglobin 12.2 ABG Carboxyhemoglobin 0.3 L POC ABG HHb (Measured) 2.6 ABG Methemoglobin 0.7 Barry Test Pos VBG pH VBG pCO2 VBG HCO3 VBG Total CO2 VBG O2 Sat (Calc) VBG Base Excess VBG Potassium A-a O2 Difference -15.0 Respiratory Index -0.1 Hgb O2 Saturation 96.3 Glucose Lactate FiO2 21.0 Crit Value Called To Crit Value Called By Crit Value Read Back Blood Gas Notified Time Sodium Potassium Chloride Carbon Dioxide Anion Gap BUN Creatinine Est GFR ( Amer) Est GFR (Non-Af Amer) POC Glucose (mg/dL) Random Glucose Serum Osmolality Lactic Acid Calcium Phosphorus Magnesium Total Bilirubin AST ALT Alkaline Phosphatase Ammonia Total Creatine Kinase Total Protein Albumin Globulin Albumin/Globulin Ratio Procalcitonin Venous Blood Potassium Urine Color Urine Clarity Urine pH Ur Specific Jackson Urine Protein Urine Glucose (UA) Urine Ketones Urine Blood Urine Nitrate Urine Bilirubin Urine Urobilinogen Ur Leukocyte Esterase Urine WBC (Auto) Urine RBC (Auto) Ur Squamous Epith Cells Urine Osmolality Salicylates < 1.0 Urine Opiates Screen Negative Urine Methadone Screen Negative Acetaminophen < 10.0 L Ur Barbiturates Screen Negative Ur Phencyclidine Scrn Negative Ur Amphetamines Screen Negative U Benzodiazepines Scrn Negative U Oth Cocaine Metabols Negative U Cannabinoids Screen Negative Alcohol, Quantitative 09/28/17 09/28/17 09/28/17 14:24 14:45 14:47 WBC RBC Hgb Hct MCV MCH MCHC RDW Plt Count MPV Neut % (Auto) Lymph % (Auto) Lanier % (Auto) Eos % (Auto) Baso % (Auto) Neut # (Auto) Lymph # (Auto) Lanier # (Auto) Eos # (Auto) Baso # (Auto) Neutrophils % (Manual) Lymphocytes % (Manual) Monocytes % (Manual) Platelet Estimate RBC Morphology Puncture Site pCO2 pO2 HCO3 ABG pH ABG Total CO2 ABG O2 Saturation ABG Base Excess ABG Hemoglobin ABG Carboxyhemoglobin POC ABG HHb (Measured) ABG Methemoglobin Barry Test VBG pH VBG pCO2 VBG HCO3 VBG Total CO2 VBG O2 Sat (Calc) VBG Base Excess VBG Potassium A-a O2 Difference Respiratory Index Hgb O2 Saturation Glucose Lactate FiO2 Crit Value Called To Crit Value Called By Crit Value Read Back Blood Gas Notified Time Sodium Potassium Chloride Carbon Dioxide Anion Gap BUN Creatinine Est GFR ( Amer) Est GFR (Non-Af Amer) POC Glucose (mg/dL) 57 L 60 L Random Glucose Serum Osmolality Lactic Acid Calcium Phosphorus Magnesium Total Bilirubin AST ALT Alkaline Phosphatase Ammonia < 9 L Total Creatine Kinase Total Protein Albumin Globulin Albumin/Globulin Ratio Procalcitonin Venous Blood Potassium Urine Color Urine Clarity Urine pH Ur Specific Jackson Urine Protein Urine Glucose (UA) Urine Ketones Urine Blood Urine Nitrate Urine Bilirubin Urine Urobilinogen Ur Leukocyte Esterase Urine WBC (Auto) Urine RBC (Auto) Ur Squamous Epith Cells Urine Osmolality Salicylates Urine Opiates Screen Urine Methadone Screen Acetaminophen Ur Barbiturates Screen Ur Phencyclidine Scrn Ur Amphetamines Screen U Benzodiazepines Scrn U Oth Cocaine Metabols U Cannabinoids Screen Alcohol, Quantitative 09/28/17 09/28/17 09/28/17 15:14 15:20 15:20 WBC RBC Hgb Hct MCV MCH MCHC RDW Plt Count MPV Neut % (Auto) Lymph % (Auto) Lanier % (Auto) Eos % (Auto) Baso % (Auto) Neut # (Auto) Lymph # (Auto) Lanier # (Auto) Eos # (Auto) Baso # (Auto) Neutrophils % (Manual) Lymphocytes % (Manual) Monocytes % (Manual) Platelet Estimate RBC Morphology Puncture Site pCO2 pO2 HCO3 ABG pH ABG Total CO2 ABG O2 Saturation ABG Base Excess ABG Hemoglobin ABG Carboxyhemoglobin POC ABG HHb (Measured) ABG Methemoglobin Barry Test VBG pH VBG pCO2 VBG HCO3 VBG Total CO2 VBG O2 Sat (Calc) VBG Base Excess VBG Potassium A-a O2 Difference Respiratory Index Hgb O2 Saturation Glucose Lactate FiO2 Crit Value Called To Crit Value Called By Crit Value Read Back Blood Gas Notified Time Sodium Potassium Chloride Carbon Dioxide Anion Gap BUN Creatinine Est GFR ( Amer) Est GFR (Non-Af Amer) POC Glucose (mg/dL) 214 H Random Glucose Serum Osmolality Lactic Acid 3.5 H Calcium Phosphorus Magnesium Total Bilirubin AST ALT Alkaline Phosphatase Ammonia Total Creatine Kinase Total Protein Albumin Globulin Albumin/Globulin Ratio Procalcitonin Venous Blood Potassium Urine Color Urine Clarity Urine pH Ur Specific Jackson Urine Protein Urine Glucose (UA) Urine Ketones Urine Blood Urine Nitrate Urine Bilirubin Urine Urobilinogen Ur Leukocyte Esterase Urine WBC (Auto) Urine RBC (Auto) Ur Squamous Epith Cells Urine Osmolality 291 L Salicylates Urine Opiates Screen Urine Methadone Screen Acetaminophen Ur Barbiturates Screen Ur Phencyclidine Scrn Ur Amphetamines Screen U Benzodiazepines Scrn U Oth Cocaine Metabols U Cannabinoids Screen Alcohol, Quantitative 09/28/17 09/28/17 09/28/17 16:26 16:48 17:31 WBC RBC Hgb Hct MCV MCH MCHC RDW Plt Count MPV Neut % (Auto) Lymph % (Auto) Lanier % (Auto) Eos % (Auto) Baso % (Auto) Neut # (Auto) Lymph # (Auto) Lanier # (Auto) Eos # (Auto) Baso # (Auto) Neutrophils % (Manual) Lymphocytes % (Manual) Monocytes % (Manual) Platelet Estimate RBC Morphology Puncture Site pCO2 pO2 35 HCO3 ABG pH ABG Total CO2 ABG O2 Saturation ABG Base Excess ABG Hemoglobin ABG Carboxyhemoglobin POC ABG HHb (Measured) ABG Methemoglobin Barry Test VBG pH 7.28 L VBG pCO2 37 L VBG HCO3 17.2 VBG Total CO2 18.5 L VBG O2 Sat (Calc) 66.6 H VBG Base Excess -8.6 L VBG Potassium 5.0 A-a O2 Difference Respiratory Index Hgb O2 Saturation Glucose 241 H Lactate 4.7 H* FiO2 Crit Value Called To Dr. kincaid Crit Value Called By Effie Crit Value Read Back Y Blood Gas Notified Time 1739 Sodium 137.0 Potassium Chloride 100.0 Carbon Dioxide Anion Gap BUN Creatinine Est GFR ( Amer) Est GFR (Non-Af Amer) POC Glucose (mg/dL) 237 H Random Glucose Serum Osmolality 294 Lactic Acid Calcium Phosphorus Magnesium Total Bilirubin AST ALT Alkaline Phosphatase Ammonia Total Creatine Kinase Total Protein Albumin Globulin Albumin/Globulin Ratio Procalcitonin Venous Blood Potassium 5.0 Urine Color Urine Clarity Urine pH Ur Specific Jackson Urine Protein Urine Glucose (UA) Urine Ketones Urine Blood Urine Nitrate Urine Bilirubin Urine Urobilinogen Ur Leukocyte Esterase Urine WBC (Auto) Urine RBC (Auto) Ur Squamous Epith Cells Urine Osmolality Salicylates Urine Opiates Screen Urine Methadone Screen Acetaminophen Ur Barbiturates Screen Ur Phencyclidine Scrn Ur Amphetamines Screen U Benzodiazepines Scrn U Oth Cocaine Metabols U Cannabinoids Screen Alcohol, Quantitative 09/28/17 09/28/17 09/28/17 20:07 20:14 20:20 WBC RBC Hgb Hct MCV MCH MCHC RDW Plt Count MPV Neut % (Auto) Lymph % (Auto) Lanier % (Auto) Eos % (Auto) Baso % (Auto) Neut # (Auto) Lymph # (Auto) Lanier # (Auto) Eos # (Auto) Baso # (Auto) Neutrophils % (Manual) Lymphocytes % (Manual) Monocytes % (Manual) Platelet Estimate RBC Morphology Puncture Site pCO2 pO2 41 HCO3 ABG pH ABG Total CO2 ABG O2 Saturation ABG Base Excess ABG Hemoglobin ABG Carboxyhemoglobin POC ABG HHb (Measured) ABG Methemoglobin Barry Test VBG pH 7.38 VBG pCO2 31 L VBG HCO3 19.9 VBG Total CO2 19.3 L VBG O2 Sat (Calc) 80.7 H VBG Base Excess -5.7 L VBG Potassium 3.1 L A-a O2 Difference Respiratory Index Hgb O2 Saturation Glucose 162 H Lactate 2.4 H FiO2 Crit Value Called To Crit Value Called By Crit Value Read Back Blood Gas Notified Time Sodium 134.0 136 Potassium 3.3 L Chloride 100.0 100 Carbon Dioxide 17 L Anion Gap 22 H BUN 6 L Creatinine 0.5 L Est GFR ( Amer) > 60 Est GFR (Non-Af Amer) > 60 POC Glucose (mg/dL) 185 H Random Glucose 157 H Serum Osmolality Lactic Acid Calcium 7.6 L Phosphorus 1.0 L* Magnesium 1.7 Total Bilirubin 0.4 AST 18 ALT 8 L D Alkaline Phosphatase < 20 L D Ammonia Total Creatine Kinase Total Protein 7.5 Albumin 4.2 Globulin 3.3 Albumin/Globulin Ratio 1.3 Procalcitonin Venous Blood Potassium 3.1 L Urine Color Urine Clarity Urine pH Ur Specific Jackson Urine Protein Urine Glucose (UA) Urine Ketones Urine Blood Urine Nitrate Urine Bilirubin Urine Urobilinogen Ur Leukocyte Esterase Urine WBC (Auto) Urine RBC (Auto) Ur Squamous Epith Cells Urine Osmolality Salicylates Urine Opiates Screen Urine Methadone Screen Acetaminophen Ur Barbiturates Screen Ur Phencyclidine Scrn Ur Amphetamines Screen U Benzodiazepines Scrn U Oth Cocaine Metabols U Cannabinoids Screen Alcohol, Quantitative 09/28/17 09/28/17 09/28/17 20:20 20:20 23:40 WBC 9.9 D RBC 4.79 Hgb 13.2 Hct 39.9 MCV 83.2 MCH 27.5 MCHC 33.1 RDW 14.4 Plt Count 282 MPV 8.5 Neut % (Auto) 92.7 H Lymph % (Auto) 3.9 L Lanier % (Auto) 3.0 Eos % (Auto) 0.0 Baso % (Auto) 0.4 Neut # (Auto) 9.2 H Lymph # (Auto) 0.4 L Lanier # (Auto) 0.3 Eos # (Auto) 0.0 Baso # (Auto) 0.0 Neutrophils % (Manual) 95 H Lymphocytes % (Manual) 4 L Monocytes % (Manual) 1 Platelet Estimate Normal RBC Morphology Puncture Site pCO2 pO2 HCO3 ABG pH ABG Total CO2 ABG O2 Saturation ABG Base Excess ABG Hemoglobin ABG Carboxyhemoglobin POC ABG HHb (Measured) ABG Methemoglobin Barry Test VBG pH VBG pCO2 VBG HCO3 VBG Total CO2 VBG O2 Sat (Calc) VBG Base Excess VBG Potassium A-a O2 Difference Respiratory Index Hgb O2 Saturation Glucose Lactate FiO2 Crit Value Called To Crit Value Called By Crit Value Read Back Blood Gas Notified Time Sodium Potassium Chloride Carbon Dioxide Anion Gap BUN Creatinine Est GFR ( Amer) Est GFR (Non-Af Amer) POC Glucose (mg/dL) 105 Random Glucose Serum Osmolality Lactic Acid Calcium Phosphorus Magnesium Total Bilirubin AST ALT Alkaline Phosphatase Ammonia Total Creatine Kinase Total Protein Albumin Globulin Albumin/Globulin Ratio Procalcitonin < 0.05 L Venous Blood Potassium Urine Color Urine Clarity Urine pH Ur Specific Jackson Urine Protein Urine Glucose (UA) Urine Ketones Urine Blood Urine Nitrate Urine Bilirubin Urine Urobilinogen Ur Leukocyte Esterase Urine WBC (Auto) Urine RBC (Auto) Ur Squamous Epith Cells Urine Osmolality Salicylates Urine Opiates Screen Urine Methadone Screen Acetaminophen Ur Barbiturates Screen Ur Phencyclidine Scrn Ur Amphetamines Screen U Benzodiazepines Scrn U Oth Cocaine Metabols U Cannabinoids Screen Alcohol, Quantitative 09/29/17 09/29/17 09/29/17 05:35 05:48 06:12 WBC 16.4 H D RBC 4.47 Hgb 12.5 Hct 37.0 MCV 82.7 MCH 27.9 MCHC 33.7 RDW 13.8 Plt Count 290 MPV 8.7 Neut % (Auto) 86.3 H Lymph % (Auto) 7.0 L Lanier % (Auto) 6.6 Eos % (Auto) 0.0 Baso % (Auto) 0.1 Neut # (Auto) 14.1 H Lymph # (Auto) 1.1 Lanier # (Auto) 1.1 H Eos # (Auto) 0.0 Baso # (Auto) 0.0 Neutrophils % (Manual) 89 H Lymphocytes % (Manual) 8 L Monocytes % (Manual) 3 Platelet Estimate Normal RBC Morphology Normal Puncture Site pCO2 pO2 27 L HCO3 ABG pH ABG Total CO2 ABG O2 Saturation ABG Base Excess ABG Hemoglobin ABG Carboxyhemoglobin POC ABG HHb (Measured) ABG Methemoglobin Barry Test VBG pH 7.49 H VBG pCO2 29 L VBG HCO3 23.7 VBG Total CO2 23.0 VBG O2 Sat (Calc) 56.9 VBG Base Excess -0.2 L VBG Potassium 2.5 L* A-a O2 Difference Respiratory Index Hgb O2 Saturation Glucose 110 H Lactate 1.5 FiO2 Crit Value Called To Reginald sanchez rn Crit Value Called By Coleman glass bulb silverer Crit Value Read Back Y Blood Gas Notified Time 540 Sodium 137.0 Potassium Chloride 104.0 Carbon Dioxide Anion Gap BUN Creatinine Est GFR ( Amer) Est GFR (Non-Af Amer) POC Glucose (mg/dL) 119 H Random Glucose Serum Osmolality Lactic Acid Calcium Phosphorus Magnesium Total Bilirubin AST ALT Alkaline Phosphatase Ammonia Total Creatine Kinase Total Protein Albumin Globulin Albumin/Globulin Ratio Procalcitonin Venous Blood Potassium 2.5 L* Urine Color Urine Clarity Urine pH Ur Specific Jackson Urine Protein Urine Glucose (UA) Urine Ketones Urine Blood Urine Nitrate Urine Bilirubin Urine Urobilinogen Ur Leukocyte Esterase Urine WBC (Auto) Urine RBC (Auto) Ur Squamous Epith Cells Urine Osmolality Salicylates Urine Opiates Screen Urine Methadone Screen Acetaminophen Ur Barbiturates Screen Ur Phencyclidine Scrn Ur Amphetamines Screen U Benzodiazepines Scrn U Oth Cocaine Metabols U Cannabinoids Screen Alcohol, Quantitative 09/29/17 09/29/17 09/29/17 06:14 07:01 09:10 WBC RBC Hgb Hct MCV MCH MCHC RDW Plt Count MPV Neut % (Auto) Lymph % (Auto) Lanier % (Auto) Eos % (Auto) Baso % (Auto) Neut # (Auto) Lymph # (Auto) Lanier # (Auto) Eos # (Auto) Baso # (Auto) Neutrophils % (Manual) Lymphocytes % (Manual) Monocytes % (Manual) Platelet Estimate RBC Morphology Puncture Site pCO2 pO2 HCO3 ABG pH ABG Total CO2 ABG O2 Saturation ABG Base Excess ABG Hemoglobin ABG Carboxyhemoglobin POC ABG HHb (Measured) ABG Methemoglobin Barry Test VBG pH VBG pCO2 VBG HCO3 VBG Total CO2 VBG O2 Sat (Calc) VBG Base Excess VBG Potassium A-a O2 Difference Respiratory Index Hgb O2 Saturation Glucose Lactate FiO2 Crit Value Called To Crit Value Called By Crit Value Read Back Blood Gas Notified Time Sodium 139 Potassium 2.8 L Chloride 102 Carbon Dioxide 22 Anion Gap 18 BUN 4 L Creatinine 0.5 L Est GFR ( Amer) > 60 Est GFR (Non-Af Amer) > 60 POC Glucose (mg/dL) Random Glucose 99 Serum Osmolality Lactic Acid Calcium 7.9 L Phosphorus 2.8 Magnesium 1.6 Total Bilirubin 0.4 AST 17 ALT < 6 L D Alkaline Phosphatase 43 Ammonia Total Creatine Kinase Total Protein 7.4 Albumin 3.8 Globulin 3.6 Albumin/Globulin Ratio 1.0 Procalcitonin < 0.05 L Venous Blood Potassium Urine Color Urine Clarity Urine pH Ur Specific Jackson Urine Protein Urine Glucose (UA) Urine Ketones Urine Blood Urine Nitrate Urine Bilirubin Urine Urobilinogen Ur Leukocyte Esterase Urine WBC (Auto) Urine RBC (Auto) Ur Squamous Epith Cells Urine Osmolality Salicylates Urine Opiates Screen Urine Methadone Screen Acetaminophen Ur Barbiturates Screen Ur Phencyclidine Scrn Ur Amphetamines Screen U Benzodiazepines Scrn U Oth Cocaine Metabols U Cannabinoids Screen Alcohol, Quantitative 09/29/17 09:10 WBC RBC Hgb Hct MCV MCH MCHC RDW Plt Count MPV Neut % (Auto) Lymph % (Auto) Lanier % (Auto) Eos % (Auto) Baso % (Auto) Neut # (Auto) Lymph # (Auto) Lanier # (Auto) Eos # (Auto) Baso # (Auto) Neutrophils % (Manual) Lymphocytes % (Manual) Monocytes % (Manual) Platelet Estimate RBC Morphology Puncture Site pCO2 pO2 HCO3 ABG pH ABG Total CO2 ABG O2 Saturation ABG Base Excess ABG Hemoglobin ABG Carboxyhemoglobin POC ABG HHb (Measured) ABG Methemoglobin Barry Test VBG pH VBG pCO2 VBG HCO3 VBG Total CO2 VBG O2 Sat (Calc) VBG Base Excess VBG Potassium A-a O2 Difference Respiratory Index Hgb O2 Saturation Glucose Lactate FiO2 Crit Value Called To Crit Value Called By Crit Value Read Back Blood Gas Notified Time Sodium Potassium Chloride Carbon Dioxide Anion Gap BUN Creatinine Est GFR ( Amer) Est GFR (Non-Af Amer) POC Glucose (mg/dL) Random Glucose Serum Osmolality 295 Lactic Acid Calcium Phosphorus Magnesium Total Bilirubin AST ALT Alkaline Phosphatase Ammonia Total Creatine Kinase Total Protein Albumin Globulin Albumin/Globulin Ratio Procalcitonin Venous Blood Potassium Urine Color Urine Clarity Urine pH Ur Specific Jackson Urine Protein Urine Glucose (UA) Urine Ketones Urine Blood Urine Nitrate Urine Bilirubin Urine Urobilinogen Ur Leukocyte Esterase Urine WBC (Auto) Urine RBC (Auto) Ur Squamous Epith Cells Urine Osmolality Salicylates Urine Opiates Screen Urine Methadone Screen Acetaminophen Ur Barbiturates Screen Ur Phencyclidine Scrn Ur Amphetamines Screen U Benzodiazepines Scrn U Oth Cocaine Metabols U Cannabinoids Screen Alcohol, Quantitative Assessment & Plan - Assessment and Plan (Free Text) Assessment: 27 yr old woman with what appears to be delirium due to substance ingestion, anticholinergic effect, differential of postictal state, stroke, although less likely. IT also may be a major depressive episode or a psychotic break, as psychiatry has suggested. If this is delirium, it shoudl clear as the advil and unisom clear from her system. She may also have bipolar disease that we do not have knowledge of. EEG is normal and shows no sign of postictal state or seizure. Plan: 1. MRi Brain with contrast 2. Change keppra to trileptal as keppra exacerbates depression and causes suicidality in patients wtih baseline depression,. 3 Trileptal 150 mg bid 4. LP to rule out encephalitis. 5. Seroquel 25 mg bid 6. MRI Brain maddi 7. when medically cleared, if this behavior persists would recommend inpatient psychiatric admission. Dr. waggoner
[2017-09-29] MEDS ORDERED: Dextrose 50% SYRINGE Inj (50 ml) IV PRN (12:18)
[2017-09-29] MEDS ORDERED: Glucagon Recombinant 1 mg Inj IM PRN (12:18)
--- NOTE | 2017-09-29 14:42 | CP.PCM.PN ---
Subjective - Date & Time of Evaluation Date of Evaluation: 09/29/17 Time of Evaluation: 11:00 - Subjective Subjective: Patient verbalizing but confused and speaking in her [place] language. Starts giggling when asked questions Objective - Vital Signs/Intake and Output Vital Signs (last 24 hours): Temp Pulse Resp BP Pulse Ox 97.6 F 111 H 24 107/54 L 100 09/29/17 08:00 09/29/17 14:00 09/29/17 14:00 09/29/17 13:59 09/29/17 14:00 Intake and Output: 09/29/17 09/29/17 06:59 18:59 Intake Total 3579 1944 Output Total 2500 1200 Balance 1079 744 - Medications Medications: Current Medications Dextrose (Dextrose 50% Inj) 0 ml IV STAT PRN; Protocol PRN Reason: Hypoglycemia Protocol Last Admin: 09/29/17 12:31 Dose: 50 ml Dextrose (Glutose 15) 0 gm PO ONCE PRN; Protocol PRN Reason: Hypoglycemia Protocol Enoxaparin Sodium (Lovenox) 40 mg SC DAILY [facility] Last Admin: 09/29/17 10:56 Dose: 40 mg Glucagon (Glucagen Diagnostic Kit) 0 mg IM STAT PRN; Protocol PRN Reason: Hypoglycemia Protocol Dextrose/Sodium Chloride (Dextrose 5%/0.9% Ns 1000 Ml) 1,000 mls @ 100 mls/hr IV .Q10H [facility] Last Admin: 09/29/17 05:59 Dose: Not Given Dextrose (Dextrose 5% In Water 1000 Ml) 1,000 mls @ 0 mls/hr IV .Q0M PRN; Protocol; Per Protocol PRN Reason: Hypoglycemia Protocol Lorazepam (Ativan) 0.5 mg IVP ONCE PRN PRN Reason: Agitation Last Admin: 09/29/17 14:23 Dose: 0.5 mg Multivitamins/Vitamin C (Multi-Delyn Liquid) 5 ml PO DAILY [facility] Oxcarbazepine (Trileptal) 150 mg PO BID [facility] Last Admin: 09/29/17 12:14 Dose: 150 mg Pneumococcal Polyvalent Vaccine (Pneumovax 23 Vaccine) 0.5 ml SC .ONCE ONE Stop: 10/01/17 10:01 Thiamine HCl (Vitamin B1 Tab) 200 mg PO BID [facility] Vitamin A (Vitamin A & D Oint Ud Foilpak) 1 ea TOP BID [facility] Last Admin: 09/29/17 11:01 Dose: 1 ea - Labs Labs: 09/29/17 06:12 09/29/17 06:14 Assessment and Plan - Assessment and Plan (Free Text) Assessment: Metabolic Encephalopathy Drug Overdose and patient having AMS secondary to encephalopathy possibly attributed to hypoglycemia vs drug related Mentation improving as per progress notes but continues to be confused, speaking in her [place] language - possibly delirium Neurology consulted - recommending MRI brain w/contrast and will change medication to Trileptal given patient possibly suicidal Psychiatry consulted - recommending Ativan and Trileptal Continue to monitor for hemodynamic stability. Correct electrolytes. Acidosis improving Continue supportive care and hydration. No family members at bedside during the encounter.
[2017-09-29] MEDS: Multiple Vitamins Oral Solution PO SCH (15:36)
[2017-09-29] MEDS: Acyclovir 500 MG in Sodium Chloride 0.9% 100 ML IV SCH (16:27)
[2017-09-29] MEDS ORDERED: Dextrose 5%/Lactated Ringer's 1,000 ML IV SCH (16:45)
[2017-09-29 18:18] LABS: BLOOD UREA NITROGEN 3 mg/dL (7-17); CALCIUM 7.9 mg/dl (8.6-10.4); GFR AFRICAN-AMERICAN > 60; GFR NON-AFRICAN AMERICAN > 60
[2017-09-30] MEDS: Acyclovir 500 MG in Sodium Chloride 0.9% 100 ML IV SCH ×3 (00:30→16:38)
[2017-09-30] MEDS: Dextrose 5%/0.9% NS 1,000 ML IV SCH ×5 (00:45→20:45)
[2017-09-30 08:07] LABS: BASO # 0.1 K/uL (0.0-0.2); BASO % 0.7 % (0.0-2.0); EOS # 0.1 K/uL (0.0-0.7); EOS % 0.6 % (0.0-4.0); LYMPH # 1.7 K/uL (1.0-4.3); LYMPH % 15.3 % (20.0-40.0); MEAN CELL VOLUME 83.6 fL (81.0-99.0); MEAN CORPUSCULAR HEMOGLOBIN 28.5 pg (27.0-31.0); MEAN PLATELET VOLUME 8.6 fL (7.2-11.7); MONO # 0.9 K/uL (0.0-0.8); MONO % 8.6 % (0.0-10.0); NEUT # 8.2 K/uL (1.8-7.0); NEUT % 74.8 % (50.0-75.0); RBC 4.22 Mil/uL (3.80-5.20); RED CELL DISTRIBUTION WIDTH 14.2 % (11.5-14.5); WHITE BLOOD COUNT 10.9 K/uL (4.8-10.8)
[2017-09-30 08:26] LABS: ALB/GLOB RATIO 1.2 (1.0-2.1); ALBUMIN 3.6 g/dL (3.5-5.0); ALT/SGPT 13 U/L (9-52); AST/SGOT 59 U/L (14-36); BLOOD UREA NITROGEN 4 mg/dL (7-17); GFR AFRICAN-AMERICAN > 60; GFR NON-AFRICAN AMERICAN > 60
[2017-09-30] MEDS ORDERED: Potassium Chloride 20 mEq ER Tab PO ONE (08:43)
[2017-09-30] MEDS: Enoxaparin 40 mg Syringe SC SCH (09:12)
[2017-09-30] MEDS: Vitamins A & D Oint UD Foilpak TOP SCH ×2 (09:13→17:33)
--- NOTE | 2017-09-30 09:51 | CP.CCUPN ---
Addendum entered and electronically signed by Tea Nowak DO 09/30/17 10:06 : Patient spoke to neuro - revealing strong suicidal ideation. Reporting when she sees or hears about someone dying that she wishes she can too. Patient will need to be transferred to inpatient psych once medically stable. Inquires have been made to [facility]? Primary team will inquire further. Original Note: <Tea Nowak - Last Filed: 09/30/17 09:42> CCU Subjective - Physician Review Subjective (Free Text): Patient seen and examined at bedside with Aunt and Uncle present. Patient has improved greatly. She is oriented to person, place, time. She is able to speak in complete sentences, able to follow commands. She is for MRI today CCU Objective - Vital Signs / Intake & Output Vital Signs (Last 4 hours): Vital Signs Pulse Resp BP Pulse Ox 09/30/17 06:00 97 H 23 108/66 100 Intake and Output (Last 8hrs): Intake & Output 09/29/17 09/30/17 09/30/17 22:59 06:59 14:59 Intake Total 1086 1220 200 Output Total 625 450 Balance 461 770 200 Weight 117 lb 0.5 oz Intake: Intake, IV Amount 1086 900 100 Left Antecubital 100 Left Forearm 186 Left forearm 2 800 900 100 Oral 320 100 Output: Urine 625 450 Urethral (Jimenez) 625 Urine, Voided 450 Other: # Voids Urine, Voided 1 # Bowel Movements 0 - Physical Exam Head: Positive for: Atraumatic, Normocephalic Pupils: Positive for: PERRL Extroacular Muscles: Positive for: EOMI Conjunctiva: Positive for: Normal Mouth: Positive for: Moist Mucous Membranes Neck: Positive for: Normal Range of Motion. Negative for: Meningeal Signs, MIDLINE TENDERNESS, Paraspinal Tenderness, JVD, Lymphadenopathy Respiratory/Chest: Positive for: Clear to Auscultation. Negative for: Wheezes Cardiovascular: Positive for: Regular Rate and Rhythm, Normal S1, S2 Abdomen: Positive for: Normal Bowel Sounds. Negative for: Tenderness, Distention Upper Extremity: Positive for: Normal Inspection, Normal ROM, NORMAL PULSES, Neurovascularly Intact, Capillary Refill < 2s Lower Extremity: Positive for: Normal Inspection, NORMAL PULSES, Neurovascularly Intact, Capillary Refill < 2 s. Negative for: Edema, CALF TENDERNESS Neurological: Positive for: CN II-XII Intact Skin: Positive for: Warm, Dry, Normal Color Psychiatric: Positive for: Alert, Oriented x 3, Normal Insight, Normal Concentration - Medications Active Medications: Active Medications Generic Name Dose Route Start Last Admin Trade Name Freq PRN Reason Stop Dose Admin Dextrose 0 ml 09/29/17 12:18 09/29/17 12:31 Dextrose 50% Inj IV 50 ml STAT PRN Administration Hypoglycemia Protocol Protocol Dextrose 0 gm 09/29/17 12:18 Glutose 15 PO ONCE PRN Hypoglycemia Protocol Protocol Enoxaparin Sodium 40 mg 09/29/17 10:00 09/30/17 09:12 Lovenox SC 40 mg DAILY IAN Administration Glucagon 0 mg 09/29/17 12:18 Glucagen Diagnostic Kit IM STAT PRN Hypoglycemia Protocol Protocol Dextrose/Sodium Chloride 1,000 mls @ 100 mls/hr 09/28/17 18:45 09/30/17 04:28 Dextrose 5%/0.9% Ns 1000 Ml IV 100 mls/hr .Q10H IAN Administration Dextrose 1,000 mls @ 0 mls/hr 09/29/17 12:18 Dextrose 5% In Water 1000 Ml IV .Q0M PRN Hypoglycemia Protocol Protocol Per Protocol Acyclovir 500 mg/ Sodium 100 mls @ 100 mls/hr 09/29/17 16:30 09/30/17 09:03 Chloride IV 100 mls/hr Q8H IAN Administration Protocol Lorazepam 0.5 mg 09/29/17 11:12 09/29/17 14:23 Ativan IVP 0.5 mg ONCE PRN Administration Agitation Multivitamins/Vitamin C 5 ml 09/29/17 13:15 09/29/17 15:36 Multi-Delyn Liquid PO 5 ml DAILY IAN Administration Oxcarbazepine 150 mg 09/29/17 11:30 09/29/17 17:53 Trileptal PO 150 mg BID IAN Administration Pneumococcal Polyvalent Vaccine 0.5 ml 10/01/17 10:00 Pneumovax 23 Vaccine SC 10/01/17 10:01 .ONCE ONE Quetiapine Fumarate 25 mg 10/01/17 10:00 Seroquel PO DAILY IAN Thiamine HCl 200 mg 09/29/17 18:00 09/30/17 09:11 Vitamin B1 Tab PO 200 mg BID IAN Administration Vitamin A 1 ea 09/29/17 10:00 09/30/17 09:13 Vitamin A & D Oint Ud Foilpak TOP 1 ea BID IAN Administration - Patient Studies Lab Studies: Microbiology Studies 09/28/17 16:20 MRSA Culture (Admit) - Final Naris MRSA NOT DETECTED 09/28/17 16:36 Blood Culture - Preliminary Blood-Venous NO GROWTH AFTER 24 HOURS 09/28/17 16:36 Blood Culture - Preliminary Blood-Venous NO GROWTH AFTER 24 HOURS 09/28/17 14:29 Urine Culture - Final Urine No Growth (<1,000 CFU/ML) Lab Studies 09/30/17 09/30/17 09/30/17 Range/Units 07:59 07:59 06:27 WBC 10.9 H (4.8-10.8) K/uL RBC 4.22 (3.80-5.20) Mil/uL Hgb 12.0 (11.0-16.0) g/dL Hct 35.3 (34.0-47.0) % MCV 83.6 (81.0-99.0) fL MCH 28.5 (27.0-31.0) pg MCHC 34.0 (33.0-37.0) g/dL RDW 14.2 (11.5-14.5) % Plt Count 252 (130-400) K/uL MPV 8.6 (7.2-11.7) fL Neut % (Auto) 74.8 (50.0-75.0) % Lymph % (Auto) 15.3 L (20.0-40.0) % [place] % (Auto) 8.6 (0.0-10.0) % Eos % (Auto) 0.6 (0.0-4.0) % Baso % (Auto) 0.7 (0.0-2.0) % Neut # (Auto) 8.2 H (1.8-7.0) K/uL Lymph # (Auto) 1.7 (1.0-4.3) K/uL [place] # (Auto) 0.9 H (0.0-0.8) K/uL Eos # (Auto) 0.1 (0.0-0.7) K/uL Baso # (Auto) 0.1 (0.0-0.2) K/uL Sodium 143 (132-148) mmol/L Potassium 3.2 L (3.6-5.2) mmol/L Chloride 110 H (98-107) mmol/L Carbon Dioxide 21 L (22-30) mmol/L Anion Gap 15 (10-20) BUN 4 L (7-17) mg/dL Creatinine 0.6 L (0.7-1.2) mg/dL Est GFR ( Amer) > 60 Est GFR (Non-Af Amer) > 60 POC Glucose (mg/dL) 66 (65-110) mg/dL Random Glucose 77 (65-105) mg/dL Serum Osmolality (272-300) mosm/kg Calcium 8.0 L (8.6-10.4) mg/dl Phosphorus 2.6 (2.5-4.5) mg/dL Magnesium 2.2 (1.6-2.3) mg/dL Total Bilirubin 0.3 (0.2-1.3) mg/dL AST 59 H D (14-36) U/L ALT 13 (9-52) U/L Alkaline Phosphatase 48 (38-126) U/L Total Protein 6.8 (6.3-8.3) g/dL Albumin 3.6 (3.5-5.0) g/dL Globulin 3.1 (2.2-3.9) gm/dL Albumin/Globulin Ratio 1.2 (1.0-2.1) Procalcitonin (0.19-0.49) NG/ML Beta HCG, Quant mIU/ML 09/30/17 09/29/17 09/29/17 Range/Units 06:23 23:22 20:53 WBC (4.8-10.8) K/uL RBC (3.80-5.20) Mil/uL Hgb (11.0-16.0) g/dL Hct (34.0-47.0) % MCV (81.0-99.0) fL MCH (27.0-31.0) pg MCHC (33.0-37.0) g/dL RDW (11.5-14.5) % Plt Count (130-400) K/uL MPV (7.2-11.7) fL Neut % (Auto) (50.0-75.0) % Lymph % (Auto) (20.0-40.0) % [place] % (Auto) (0.0-10.0) % Eos % (Auto) (0.0-4.0) % Baso % (Auto) (0.0-2.0) % Neut # (Auto) (1.8-7.0) K/uL Lymph # (Auto) (1.0-4.3) K/uL [place] # (Auto) (0.0-0.8) K/uL Eos # (Auto) (0.0-0.7) K/uL Baso # (Auto) (0.0-0.2) K/uL Sodium (132-148) mmol/L Potassium (3.6-5.2) mmol/L Chloride (98-107) mmol/L Carbon Dioxide (22-30) mmol/L Anion Gap (10-20) BUN (7-17) mg/dL Creatinine (0.7-1.2) mg/dL Est GFR ( Amer) Est GFR (Non-Af Amer) POC Glucose (mg/dL) 63 L 83 78 (65-110) mg/dL Random Glucose (65-105) mg/dL Serum Osmolality (272-300) mosm/kg Calcium (8.6-10.4) mg/dl Phosphorus (2.5-4.5) mg/dL Magnesium (1.6-2.3) mg/dL Total Bilirubin (0.2-1.3) mg/dL AST (14-36) U/L ALT (9-52) U/L Alkaline Phosphatase (38-126) U/L Total Protein (6.3-8.3) g/dL Albumin (3.5-5.0) g/dL Globulin (2.2-3.9) gm/dL Albumin/Globulin Ratio (1.0-2.1) Procalcitonin (0.19-0.49) NG/ML Beta HCG, Quant mIU/ML 09/29/17 09/29/17 09/29/17 Range/Units 17:52 17:48 15:56 WBC (4.8-10.8) K/uL RBC (3.80-5.20) Mil/uL Hgb (11.0-16.0) g/dL Hct (34.0-47.0) % MCV (81.0-99.0) fL MCH (27.0-31.0) pg MCHC (33.0-37.0) g/dL RDW (11.5-14.5) % Plt Count (130-400) K/uL MPV (7.2-11.7) fL Neut % (Auto) (50.0-75.0) % Lymph % (Auto) (20.0-40.0) % [place] % (Auto) (0.0-10.0) % Eos % (Auto) (0.0-4.0) % Baso % (Auto) (0.0-2.0) % Neut # (Auto) (1.8-7.0) K/uL Lymph # (Auto) (1.0-4.3) K/uL [place] # (Auto) (0.0-0.8) K/uL Eos # (Auto) (0.0-0.7) K/uL Baso # (Auto) (0.0-0.2) K/uL Sodium 144 (132-148) mmol/L Potassium 3.7 (3.6-5.2) mmol/L Chloride 112 H (98-107) mmol/L Carbon Dioxide 17 L (22-30) mmol/L Anion Gap 19 (10-20) BUN 3 L (7-17) mg/dL Creatinine 0.6 L (0.7-1.2) mg/dL Est GFR ( Amer) > 60 Est GFR (Non-Af Amer) > 60 POC Glucose (mg/dL) 85 (65-110) mg/dL Random Glucose 84 (65-105) mg/dL Serum Osmolality (272-300) mosm/kg Calcium 7.9 L (8.6-10.4) mg/dl Phosphorus (2.5-4.5) mg/dL Magnesium (1.6-2.3) mg/dL Total Bilirubin (0.2-1.3) mg/dL AST (14-36) U/L ALT (9-52) U/L Alkaline Phosphatase (38-126) U/L Total Protein (6.3-8.3) g/dL Albumin (3.5-5.0) g/dL Globulin (2.2-3.9) gm/dL Albumin/Globulin Ratio (1.0-2.1) Procalcitonin (0.19-0.49) NG/ML Beta HCG, Quant < 2.39 mIU/ML 09/29/17 09/29/17 09/29/17 Range/Units 12:48 12:19 12:17 WBC (4.8-10.8) K/uL RBC (3.80-5.20) Mil/uL Hgb (11.0-16.0) g/dL Hct (34.0-47.0) % MCV (81.0-99.0) fL MCH (27.0-31.0) pg MCHC (33.0-37.0) g/dL RDW (11.5-14.5) % Plt Count (130-400) K/uL MPV (7.2-11.7) fL Neut % (Auto) (50.0-75.0) % Lymph % (Auto) (20.0-40.0) % [place] % (Auto) (0.0-10.0) % Eos % (Auto) (0.0-4.0) % Baso % (Auto) (0.0-2.0) % Neut # (Auto) (1.8-7.0) K/uL Lymph # (Auto) (1.0-4.3) K/uL [place] # (Auto) (0.0-0.8) K/uL Eos # (Auto) (0.0-0.7) K/uL Baso # (Auto) (0.0-0.2) K/uL Sodium (132-148) mmol/L Potassium (3.6-5.2) mmol/L Chloride (98-107) mmol/L Carbon Dioxide (22-30) mmol/L Anion Gap (10-20) BUN (7-17) mg/dL Creatinine (0.7-1.2) mg/dL Est GFR ( Amer) Est GFR (Non-Af Amer) POC Glucose (mg/dL) 143 H 55 L 64 L (65-110) mg/dL Random Glucose (65-105) mg/dL Serum Osmolality (272-300) mosm/kg Calcium (8.6-10.4) mg/dl Phosphorus (2.5-4.5) mg/dL Magnesium (1.6-2.3) mg/dL Total Bilirubin (0.2-1.3) mg/dL AST (14-36) U/L ALT (9-52) U/L Alkaline Phosphatase (38-126) U/L Total Protein (6.3-8.3) g/dL Albumin (3.5-5.0) g/dL Globulin (2.2-3.9) gm/dL Albumin/Globulin Ratio (1.0-2.1) Procalcitonin (0.19-0.49) NG/ML Beta HCG, Quant mIU/ML 09/29/17 09/29/17 Range/Units 09:10 09:10 WBC (4.8-10.8) K/uL RBC (3.80-5.20) Mil/uL Hgb (11.0-16.0) g/dL Hct (34.0-47.0) % MCV (81.0-99.0) fL MCH (27.0-31.0) pg MCHC (33.0-37.0) g/dL RDW (11.5-14.5) % Plt Count (130-400) K/uL MPV (7.2-11.7) fL Neut % (Auto) (50.0-75.0) % Lymph % (Auto) (20.0-40.0) % [place] % (Auto) (0.0-10.0) % Eos % (Auto) (0.0-4.0) % Baso % (Auto) (0.0-2.0) % Neut # (Auto) (1.8-7.0) K/uL Lymph # (Auto) (1.0-4.3) K/uL [place] # (Auto) (0.0-0.8) K/uL Eos # (Auto) (0.0-0.7) K/uL Baso # (Auto) (0.0-0.2) K/uL Sodium (132-148) mmol/L Potassium (3.6-5.2) mmol/L Chloride (98-107) mmol/L Carbon Dioxide (22-30) mmol/L Anion Gap (10-20) BUN (7-17) mg/dL Creatinine (0.7-1.2) mg/dL Est GFR ( Amer) Est GFR (Non-Af Amer) POC Glucose (mg/dL) (65-110) mg/dL Random Glucose (65-105) mg/dL Serum Osmolality 295 (272-300) mosm/kg Calcium (8.6-10.4) mg/dl Phosphorus (2.5-4.5) mg/dL Magnesium (1.6-2.3) mg/dL Total Bilirubin (0.2-1.3) mg/dL AST (14-36) U/L ALT (9-52) U/L Alkaline Phosphatase (38-126) U/L Total Protein (6.3-8.3) g/dL Albumin (3.5-5.0) g/dL Globulin (2.2-3.9) gm/dL Albumin/Globulin Ratio (1.0-2.1) Procalcitonin < 0.05 L (0.19-0.49) NG/ML Beta HCG, Quant mIU/ML Laboratory Results - last 24 hr 09/29/17 09/29/17 09/29/17 09:10 09:10 12:17 WBC RBC Hgb Hct MCV MCH MCHC RDW Plt Count MPV Neut % (Auto) Lymph % (Auto) [place] % (Auto) Eos % (Auto) Baso % (Auto) Neut # (Auto) Lymph # (Auto) [place] # (Auto) Eos # (Auto) Baso # (Auto) Sodium Potassium Chloride Carbon Dioxide Anion Gap BUN Creatinine Est GFR ( Amer) Est GFR (Non-Af Amer) POC Glucose (mg/dL) 64 L Random Glucose Serum Osmolality 295 Calcium Phosphorus Magnesium Total Bilirubin AST ALT Alkaline Phosphatase Total Protein Albumin Globulin Albumin/Globulin Ratio Procalcitonin < 0.05 L Beta HCG, Quant 09/29/17 09/29/17 09/29/17 12:19 12:48 15:56 WBC RBC Hgb Hct MCV MCH MCHC RDW Plt Count MPV Neut % (Auto) Lymph % (Auto) [place] % (Auto) Eos % (Auto) Baso % (Auto) Neut # (Auto) Lymph # (Auto) [place] # (Auto) Eos # (Auto) Baso # (Auto) Sodium Potassium Chloride Carbon Dioxide Anion Gap BUN Creatinine Est GFR ( Amer) Est GFR (Non-Af Amer) POC Glucose (mg/dL) 55 L 143 H 85 Random Glucose Serum Osmolality Calcium Phosphorus Magnesium Total Bilirubin AST ALT Alkaline Phosphatase Total Protein Albumin Globulin Albumin/Globulin Ratio Procalcitonin Beta HCG, Quant 09/29/17 09/29/17 09/29/17 17:48 17:52 20:53 WBC RBC Hgb Hct MCV MCH MCHC RDW Plt Count MPV Neut % (Auto) Lymph % (Auto) [place] % (Auto) Eos % (Auto) Baso % (Auto) Neut # (Auto) Lymph # (Auto) [place] # (Auto) Eos # (Auto) Baso # (Auto) Sodium 144 Potassium 3.7 Chloride 112 H Carbon Dioxide 17 L Anion Gap 19 BUN 3 L Creatinine 0.6 L Est GFR ( Amer) > 60 Est GFR (Non-Af Amer) > 60 POC Glucose (mg/dL) 78 Random Glucose 84 Serum Osmolality Calcium 7.9 L Phosphorus Magnesium Total Bilirubin AST ALT Alkaline Phosphatase Total Protein Albumin Globulin Albumin/Globulin Ratio Procalcitonin Beta HCG, Quant < 2.39 09/29/17 09/30/17 09/30/17 23:22 06:23 06:27 WBC RBC Hgb Hct MCV MCH MCHC RDW Plt Count MPV Neut % (Auto) Lymph % (Auto) [place] % (Auto) Eos % (Auto) Baso % (Auto) Neut # (Auto) Lymph # (Auto) [place] # (Auto) Eos # (Auto) Baso # (Auto) Sodium Potassium Chloride Carbon Dioxide Anion Gap BUN Creatinine Est GFR ( Amer) Est GFR (Non-Af Amer) POC Glucose (mg/dL) 83 63 L 66 Random Glucose Serum Osmolality Calcium Phosphorus Magnesium Total Bilirubin AST ALT Alkaline Phosphatase Total Protein Albumin Globulin Albumin/Globulin Ratio Procalcitonin Beta HCG, Quant 09/30/17 09/30/17 07:59 07:59 WBC 10.9 H RBC 4.22 Hgb 12.0 Hct 35.3 MCV 83.6 MCH 28.5 MCHC 34.0 RDW 14.2 Plt Count 252 MPV 8.6 Neut % (Auto) 74.8 Lymph % (Auto) 15.3 L [place] % (Auto) 8.6 Eos % (Auto) 0.6 Baso % (Auto) 0.7 Neut # (Auto) 8.2 H Lymph # (Auto) 1.7 [place] # (Auto) 0.9 H Eos # (Auto) 0.1 Baso # (Auto) 0.1 Sodium 143 Potassium 3.2 L Chloride 110 H Carbon Dioxide 21 L Anion Gap 15 BUN 4 L Creatinine 0.6 L Est GFR ( Amer) > 60 Est GFR (Non-Af Amer) > 60 POC Glucose (mg/dL) Random Glucose 77 Serum Osmolality Calcium 8.0 L Phosphorus 2.6 Magnesium 2.2 Total Bilirubin 0.3 AST 59 H D ALT 13 Alkaline Phosphatase 48 Total Protein 6.8 Albumin 3.6 Globulin 3.1 Albumin/Globulin Ratio 1.2 Procalcitonin Beta HCG, Quant Fingerstick Blood Sugar Results: 66 Critical Care Progress Note - Nutrition Nutrition: Nutrition Category Date Time Status Regular Diet [DIET] Diets 09/30/17 Breakfast Active Assessment/Plan - Assessment and Plan (Free Text) Assessment: This is a 27 year old female with unknown medical history who was found unresponsive by her roommates. Patient moved here recently from [facility] and is currently residing with newly acquainted roommates. As per the roommates, she was last seen talking to her parents over the phone this morning, when they started to argue. Shortly after, she was found unresponsive with an empty bottle of Unisom 50mg, 60 tablets and Advil PM, 120 tablets with tablets and liquified content in the bottle. As per EMS, she was found supine, no evidence of head or neck trauma, she was not moving her extremities, was not actively seizing. Patient seen at bedside in the ED. She was tachycardiac 120-140s, with pupils reactive, neck rigid, unable to sidebend to the right, resists passive movement, responds to sternal rub, upper and lower extremities flexed. Accucheck showed sugars <50. Given D50 x 2. Placed on D5 - Bicarb drip. Patient is more alert, responsive, able to move all extremities, answer some question appropriately, she is now approaching her baseline. Her memory is still hazy, but she is able to speak in full sentences. Plan: Neuro: Awake, Alert, Oriented GCS 15 A: AMS/ Drug Overdose /Metabolic Encephalopathy - improving - Was placed on Bicarbonate drip, Started Acetylcysteine protocol - Electrolytes repleted - F/U drug tox - MRI brain A: ??Seizure Activity - Neurology consulted - Dr. Bowens - EEG done at bedside - pending read - Keppra loaded, started Keppra 750mg Q12 this was discontinued - Changed to Trilepta 150mg PO BID - Started on Seroquel 25mg PO daily, Thiamine, and MV - Low suspicion for infectious etiology - started acyclovir as neurologist suggests temporal lobe abnormality, Acyclovir 500 Q8H Cardio: A: Prolonged QTc - resolved - EKG: QTc @ 570, repeat EKG QTc 386 Pulm: - No acute distress Endo: A: Hypoglycemia - Accuchecks < 50s in the ED - Was given D50 x 2 amps in ED --250s - Accuchecks, continue to monitor - Currently on D5-0.9% NS ID: A: SIRS - Afebrile, no leukocytosis with left shift, no bandemia, Lactate 3.5 --> 4.7 - - > 2.4 --> 1.5 - Started Rocephin, Vanco empirically 09/28/17 - procal 0.05 x2, DC antibiotics - UC, BC -negative to date GI: - No acute issues Psych: - Psych consulted - Dr. Tavares for overdose Prophylaxis - Lovenox DW Dr. Aleksandra Poe, Tea Nowak DO, PGY-1 <Awilda Poe - Last Filed: 09/30/17 10:24> CCU Objective - Vital Signs / Intake & Output Intake and Output (Last 8hrs): Intake & Output 09/29/17 09/30/17 09/30/17 22:59 06:59 14:59 Intake Total 1086 1220 600 Output Total 625 450 Balance 461 770 600 Weight 117 lb 0.5 oz Intake: Intake, IV Amount 1086 900 300 Left Antecubital 100 Left Forearm 186 Left forearm 2 800 900 300 Oral 320 300 Output: Urine 625 450 Urethral (Jimenez) 625 Urine, Voided 450 Other: # Voids Urine, Voided 1 # Bowel Movements 0 - Medications Active Medications: Active Medications Generic Name Dose Route Start Last Admin Trade Name Freq PRN Reason Stop Dose Admin Dextrose 0 ml 09/29/17 12:18 09/29/17 12:31 Dextrose 50% Inj IV 50 ml STAT PRN Administration Hypoglycemia Protocol Protocol Dextrose 0 gm 09/29/17 12:18 Glutose 15 PO ONCE PRN Hypoglycemia Protocol Protocol Enoxaparin Sodium 40 mg 09/29/17 10:00 09/30/17 09:12 Lovenox SC 40 mg DAILY IAN Administration Glucagon 0 mg 09/29/17 12:18 Glucagen Diagnostic Kit IM STAT PRN Hypoglycemia Protocol Protocol Dextrose/Sodium Chloride 1,000 mls @ 100 mls/hr 09/28/17 18:45 09/30/17 04:28 Dextrose 5%/0.9% Ns 1000 Ml IV 100 mls/hr .Q10H IAN Administration Dextrose 1,000 mls @ 0 mls/hr 09/29/17 12:18 Dextrose 5% In Water 1000 Ml IV .Q0M PRN Hypoglycemia Protocol Protocol Per Protocol Acyclovir 500 mg/ Sodium 100 mls @ 100 mls/hr 09/29/17 16:30 09/30/17 09:03 Chloride IV 100 mls/hr Q8H IAN Administration Protocol Lorazepam 0.5 mg 09/29/17 11:12 09/29/17 14:23 Ativan IVP 0.5 mg ONCE PRN Administration Agitation Multivitamins/Vitamin C 5 ml 09/29/17 13:15 09/30/17 10:13 Multi-Delyn Liquid PO 5 ml DAILY IAN Administration Oxcarbazepine 150 mg 09/29/17 11:30 09/30/17 10:12 Trileptal PO 150 mg BID IAN Administration Pneumococcal Polyvalent Vaccine 0.5 ml 10/01/17 10:00 Pneumovax 23 Vaccine SC 10/01/17 10:01 .ONCE ONE Quetiapine Fumarate 25 mg 10/01/17 10:00 Seroquel PO DAILY IAN Thiamine HCl 200 mg 09/29/17 18:00 09/30/17 09:11 Vitamin B1 Tab PO 200 mg BID IAN Administration Vitamin A 1 ea 09/29/17 10:00 09/30/17 09:13 Vitamin A & D Oint Ud Foilpak TOP 1 ea BID IAN Administration - Patient Studies Lab Studies: Microbiology Studies 09/28/17 16:20 MRSA Culture (Admit) - Final Naris MRSA NOT DETECTED 09/28/17 16:36 Blood Culture - Preliminary Blood-Venous NO GROWTH AFTER 24 HOURS 09/28/17 16:36 Blood Culture - Preliminary Blood-Venous NO GROWTH AFTER 24 HOURS 09/28/17 14:29 Urine Culture - Final Urine No Growth (<1,000 CFU/ML) Lab Studies 09/30/17 09/30/17 09/30/17 Range/Units 09:44 07:59 07:59 WBC 10.9 H (4.8-10.8) K/uL RBC 4.22 (3.80-5.20) Mil/uL Hgb 12.0 (11.0-16.0) g/dL Hct 35.3 (34.0-47.0) % MCV 83.6 (81.0-99.0) fL MCH 28.5 (27.0-31.0) pg MCHC 34.0 (33.0-37.0) g/dL RDW 14.2 (11.5-14.5) % Plt Count 252 (130-400) K/uL MPV 8.6 (7.2-11.7) fL Neut % (Auto) 74.8 (50.0-75.0) % Lymph % (Auto) 15.3 L (20.0-40.0) % [place] % (Auto) 8.6 (0.0-10.0) % Eos % (Auto) 0.6 (0.0-4.0) % Baso % (Auto) 0.7 (0.0-2.0) % Neut # (Auto) 8.2 H (1.8-7.0) K/uL Lymph # (Auto) 1.7 (1.0-4.3) K/uL [place] # (Auto) 0.9 H (0.0-0.8) K/uL Eos # (Auto) 0.1 (0.0-0.7) K/uL Baso # (Auto) 0.1 (0.0-0.2) K/uL Sodium 143 (132-148) mmol/L Potassium 3.2 L (3.6-5.2) mmol/L Chloride 110 H (98-107) mmol/L Carbon Dioxide 21 L (22-30) mmol/L Anion Gap 15 (10-20) BUN 4 L (7-17) mg/dL Creatinine 0.6 L (0.7-1.2) mg/dL Est GFR ( Amer) > 60 Est GFR (Non-Af Amer) > 60 POC Glucose (mg/dL) 72 (65-110) mg/dL Random Glucose 77 (65-105) mg/dL Calcium 8.0 L (8.6-10.4) mg/dl Phosphorus 2.6 (2.5-4.5) mg/dL Magnesium 2.2 (1.6-2.3) mg/dL Total Bilirubin 0.3 (0.2-1.3) mg/dL AST 59 H D (14-36) U/L ALT 13 (9-52) U/L Alkaline Phosphatase 48 (38-126) U/L Total Protein 6.8 (6.3-8.3) g/dL Albumin 3.6 (3.5-5.0) g/dL Globulin 3.1 (2.2-3.9) gm/dL Albumin/Globulin Ratio 1.2 (1.0-2.1) Procalcitonin (0.19-0.49) NG/ML Beta HCG, Quant mIU/ML 09/30/17 09/30/17 09/29/17 Range/Units 06:27 06:23 23:22 WBC (4.8-10.8) K/uL RBC (3.80-5.20) Mil/uL Hgb (11.0-16.0) g/dL Hct (34.0-47.0) % MCV (81.0-99.0) fL MCH (27.0-31.0) pg MCHC (33.0-37.0) g/dL RDW (11.5-14.5) % Plt Count (130-400) K/uL MPV (7.2-11.7) fL Neut % (Auto) (50.0-75.0) % Lymph % (Auto) (20.0-40.0) % [place] % (Auto) (0.0-10.0) % Eos % (Auto) (0.0-4.0) % Baso % (Auto) (0.0-2.0) % Neut # (Auto) (1.8-7.0) K/uL Lymph # (Auto) (1.0-4.3) K/uL [place] # (Auto) (0.0-0.8) K/uL Eos # (Auto) (0.0-0.7) K/uL Baso # (Auto) (0.0-0.2) K/uL Sodium (132-148) mmol/L Potassium (3.6-5.2) mmol/L Chloride (98-107) mmol/L Carbon Dioxide (22-30) mmol/L Anion Gap (10-20) BUN (7-17) mg/dL Creatinine (0.7-1.2) mg/dL Est GFR ( Amer) Est GFR (Non-Af Amer) POC Glucose (mg/dL) 66 63 L 83 (65-110) mg/dL Random Glucose (65-105) mg/dL Calcium (8.6-10.4) mg/dl Phosphorus (2.5-4.5) mg/dL Magnesium (1.6-2.3) mg/dL Total Bilirubin (0.2-1.3) mg/dL AST (14-36) U/L ALT (9-52) U/L Alkaline Phosphatase (38-126) U/L Total Protein (6.3-8.3) g/dL Albumin (3.5-5.0) g/dL Globulin (2.2-3.9) gm/dL Albumin/Globulin Ratio (1.0-2.1) Procalcitonin (0.19-0.49) NG/ML Beta HCG, Quant mIU/ML 09/29/17 09/29/17 09/29/17 Range/Units 20:53 17:52 17:48 WBC (4.8-10.8) K/uL RBC (3.80-5.20) Mil/uL Hgb (11.0-16.0) g/dL Hct (34.0-47.0) % MCV (81.0-99.0) fL MCH (27.0-31.0) pg MCHC (33.0-37.0) g/dL RDW (11.5-14.5) % Plt Count (130-400) K/uL MPV (7.2-11.7) fL Neut % (Auto) (50.0-75.0) % Lymph % (Auto) (20.0-40.0) % [place] % (Auto) (0.0-10.0) % Eos % (Auto) (0.0-4.0) % Baso % (Auto) (0.0-2.0) % Neut # (Auto) (1.8-7.0) K/uL Lymph # (Auto) (1.0-4.3) K/uL [place] # (Auto) (0.0-0.8) K/uL Eos # (Auto) (0.0-0.7) K/uL Baso # (Auto) (0.0-0.2) K/uL Sodium 144 (132-148) mmol/L Potassium 3.7 (3.6-5.2) mmol/L Chloride 112 H (98-107) mmol/L Carbon Dioxide 17 L (22-30) mmol/L Anion Gap 19 (10-20) BUN 3 L (7-17) mg/dL Creatinine 0.6 L (0.7-1.2) mg/dL Est GFR ( Amer) > 60 Est GFR (Non-Af Amer) > 60 POC Glucose (mg/dL) 78 (65-110) mg/dL Random Glucose 84 (65-105) mg/dL Calcium 7.9 L (8.6-10.4) mg/dl Phosphorus (2.5-4.5) mg/dL Magnesium (1.6-2.3) mg/dL Total Bilirubin (0.2-1.3) mg/dL AST (14-36) U/L ALT (9-52) U/L Alkaline Phosphatase (38-126) U/L Total Protein (6.3-8.3) g/dL Albumin (3.5-5.0) g/dL Globulin (2.2-3.9) gm/dL Albumin/Globulin Ratio (1.0-2.1) Procalcitonin (0.19-0.49) NG/ML Beta HCG, Quant < 2.39 mIU/ML 09/29/17 09/29/17 09/29/17 Range/Units 15:56 12:48 12:19 WBC (4.8-10.8) K/uL RBC (3.80-5.20) Mil/uL Hgb (11.0-16.0) g/dL Hct (34.0-47.0) % MCV (81.0-99.0) fL MCH (27.0-31.0) pg MCHC (33.0-37.0) g/dL RDW (11.5-14.5) % Plt Count (130-400) K/uL MPV (7.2-11.7) fL Neut % (Auto) (50.0-75.0) % Lymph % (Auto) (20.0-40.0) % [place] % (Auto) (0.0-10.0) % Eos % (Auto) (0.0-4.0) % Baso % (Auto) (0.0-2.0) % Neut # (Auto) (1.8-7.0) K/uL Lymph # (Auto) (1.0-4.3) K/uL [place] # (Auto) (0.0-0.8) K/uL Eos # (Auto) (0.0-0.7) K/uL Baso # (Auto) (0.0-0.2) K/uL Sodium (132-148) mmol/L Potassium (3.6-5.2) mmol/L Chloride (98-107) mmol/L Carbon Dioxide (22-30) mmol/L Anion Gap (10-20) BUN (7-17) mg/dL Creatinine (0.7-1.2) mg/dL Est GFR ( Amer) Est GFR (Non-Af Amer) POC Glucose (mg/dL) 85 143 H 55 L (65-110) mg/dL Random Glucose (65-105) mg/dL Calcium (8.6-10.4) mg/dl Phosphorus (2.5-4.5) mg/dL Magnesium (1.6-2.3) mg/dL Total Bilirubin (0.2-1.3) mg/dL AST (14-36) U/L ALT (9-52) U/L Alkaline Phosphatase (38-126) U/L Total Protein (6.3-8.3) g/dL Albumin (3.5-5.0) g/dL Globulin (2.2-3.9) gm/dL Albumin/Globulin Ratio (1.0-2.1) Procalcitonin (0.19-0.49) NG/ML Beta HCG, Quant mIU/ML 09/29/17 09/29/17 Range/Units 12:17 09:10 WBC (4.8-10.8) K/uL RBC (3.80-5.20) Mil/uL Hgb (11.0-16.0) g/dL Hct (34.0-47.0) % MCV (81.0-99.0) fL MCH (27.0-31.0) pg MCHC (33.0-37.0) g/dL RDW (11.5-14.5) % Plt Count (130-400) K/uL MPV (7.2-11.7) fL Neut % (Auto) (50.0-75.0) % Lymph % (Auto) (20.0-40.0) % [place] % (Auto) (0.0-10.0) % Eos % (Auto) (0.0-4.0) % Baso % (Auto) (0.0-2.0) % Neut # (Auto) (1.8-7.0) K/uL Lymph # (Auto) (1.0-4.3) K/uL [place] # (Auto) (0.0-0.8) K/uL Eos # (Auto) (0.0-0.7) K/uL Baso # (Auto) (0.0-0.2) K/uL Sodium (132-148) mmol/L Potassium (3.6-5.2) mmol/L Chloride (98-107) mmol/L Carbon Dioxide (22-30) mmol/L Anion Gap (10-20) BUN (7-17) mg/dL Creatinine (0.7-1.2) mg/dL Est GFR ( Amer) Est GFR (Non-Af Amer) POC Glucose (mg/dL) 64 L (65-110) mg/dL Random Glucose (65-105) mg/dL Calcium (8.6-10.4) mg/dl Phosphorus (2.5-4.5) mg/dL Magnesium (1.6-2.3) mg/dL Total Bilirubin (0.2-1.3) mg/dL AST (14-36) U/L ALT (9-52) U/L Alkaline Phosphatase (38-126) U/L Total Protein (6.3-8.3) g/dL Albumin (3.5-5.0) g/dL Globulin (2.2-3.9) gm/dL Albumin/Globulin Ratio (1.0-2.1) Procalcitonin < 0.05 L (0.19-0.49) NG/ML Beta HCG, Quant mIU/ML Laboratory Results - last 24 hr 09/29/17 09/29/17 09/29/17 09:10 12:17 12:19 WBC RBC Hgb Hct MCV MCH MCHC RDW Plt Count MPV Neut % (Auto) Lymph % (Auto) [place] % (Auto) Eos % (Auto) Baso % (Auto) Neut # (Auto) Lymph # (Auto) [place] # (Auto) Eos # (Auto) Baso # (Auto) Sodium Potassium Chloride Carbon Dioxide Anion Gap BUN Creatinine Est GFR ( Amer) Est GFR (Non-Af Amer) POC Glucose (mg/dL) 64 L 55 L Random Glucose Calcium Phosphorus Magnesium Total Bilirubin AST ALT Alkaline Phosphatase Total Protein Albumin Globulin Albumin/Globulin Ratio Procalcitonin < 0.05 L Beta HCG, Quant 09/29/17 09/29/17 09/29/17 12:48 15:56 17:48 WBC RBC Hgb Hct MCV MCH MCHC RDW Plt Count MPV Neut % (Auto) Lymph % (Auto) [place] % (Auto) Eos % (Auto) Baso % (Auto) Neut # (Auto) Lymph # (Auto) [place] # (Auto) Eos # (Auto) Baso # (Auto) Sodium 144 Potassium 3.7 Chloride 112 H Carbon Dioxide 17 L Anion Gap 19 BUN 3 L Creatinine 0.6 L Est GFR ( Amer) > 60 Est GFR (Non-Af Amer) > 60 POC Glucose (mg/dL) 143 H 85 Random Glucose 84 Calcium 7.9 L Phosphorus Magnesium Total Bilirubin AST ALT Alkaline Phosphatase Total Protein Albumin Globulin Albumin/Globulin Ratio Procalcitonin Beta HCG, Quant 09/29/17 09/29/17 09/29/17 17:52 20:53 23:22 WBC RBC Hgb Hct MCV MCH MCHC RDW Plt Count MPV Neut % (Auto) Lymph % (Auto) [place] % (Auto) Eos % (Auto) Baso % (Auto) Neut # (Auto) Lymph # (Auto) [place] # (Auto) Eos # (Auto) Baso # (Auto) Sodium Potassium Chloride Carbon Dioxide Anion Gap BUN Creatinine Est GFR ( Amer) Est GFR (Non-Af Amer) POC Glucose (mg/dL) 78 83 Random Glucose Calcium Phosphorus Magnesium Total Bilirubin AST ALT Alkaline Phosphatase Total Protein Albumin Globulin Albumin/Globulin Ratio Procalcitonin Beta HCG, Quant < 2.39 09/30/17 09/30/17 09/30/17 06:23 06:27 07:59 WBC 10.9 H RBC 4.22 Hgb 12.0 Hct 35.3 MCV 83.6 MCH 28.5 MCHC 34.0 RDW 14.2 Plt Count 252 MPV 8.6 Neut % (Auto) 74.8 Lymph % (Auto) 15.3 L [place] % (Auto) 8.6 Eos % (Auto) 0.6 Baso % (Auto) 0.7 Neut # (Auto) 8.2 H Lymph # (Auto) 1.7 [place] # (Auto) 0.9 H Eos # (Auto) 0.1 Baso # (Auto) 0.1 Sodium Potassium Chloride Carbon Dioxide Anion Gap BUN Creatinine Est GFR ( Amer) Est GFR (Non-Af Amer) POC Glucose (mg/dL) 63 L 66 Random Glucose Calcium Phosphorus Magnesium Total Bilirubin AST ALT Alkaline Phosphatase Total Protein Albumin Globulin Albumin/Globulin Ratio Procalcitonin Beta HCG, Quant 09/30/17 09/30/17 07:59 09:44 WBC RBC Hgb Hct MCV MCH MCHC RDW Plt Count MPV Neut % (Auto) Lymph % (Auto) [place] % (Auto) Eos % (Auto) Baso % (Auto) Neut # (Auto) Lymph # (Auto) [place] # (Auto) Eos # (Auto) Baso # (Auto) Sodium 143 Potassium 3.2 L Chloride 110 H Carbon Dioxide 21 L Anion Gap 15 BUN 4 L Creatinine 0.6 L Est GFR ( Amer) > 60 Est GFR (Non-Af Amer) > 60 POC Glucose (mg/dL) 72 Random Glucose 77 Calcium 8.0 L Phosphorus 2.6 Magnesium 2.2 Total Bilirubin 0.3 AST 59 H D ALT 13 Alkaline Phosphatase 48 Total Protein 6.8 Albumin 3.6 Globulin 3.1 Albumin/Globulin Ratio 1.2 Procalcitonin Beta HCG, Quant Critical Care Progress Note - Nutrition Nutrition: Nutrition Category Date Time Status Regular Diet [DIET] Diets 09/30/17 Breakfast Active Assessment/Plan - Assessment and Plan (Free Text) Plan: Above patient seen and examined at bedside. PAtient much more awake, tachycardia resolving, tolerating oral diet. WBC decreasing. No fevers -AMS: slowly resolving -QTC normalizing -psych eval -continue current regimen -pending HSV select, empirically on acyclovir, switch to oral -replace electrolytes -Patient remains hemodynamically stable. -Will benefit from inpatient psych eval for suicidal ideation/intent/attempt - Date & Time Date: 09/30/17 Time: 10:23
[2017-09-30] MEDS: Multiple Vitamins Oral Solution PO SCH (10:13)
--- NOTE | 2017-09-30 10:13 | CP.PCM.PN ---
Subjective - Date & Time of Evaluation Date of Evaluation: 09/30/17 Time of Evaluation: 09:30 - Subjective Subjective: Miss renee is much better today, with no headache, no weakness, and improved mentation. Further history shows that she has been chronically suicidal , and is also passively suicidal. she has never been on an antidepressant and is will ing to start one now. on exam: AAox2. PERRL. Cn 2-12 normal. Speech fluent. intersecting pentagons shows some constructional apraxia. calculations are normal. strength is normal, as is sensation. no tremor today. +2 ul and ll bl. toes downgoing. no clonus. Objective - Vital Signs/Intake and Output Vital Signs (last 24 hours): Temp Pulse Resp BP Pulse Ox 98 F 97 H 23 108/66 100 09/30/17 04:00 09/30/17 06:00 09/30/17 06:00 09/30/17 06:00 09/30/17 06:00 Intake and Output: 09/30/17 09/30/17 06:59 18:59 Intake Total 1620 200 Output Total 450 Balance 1170 200 - Medications Medications: Current Medications Dextrose (Dextrose 50% Inj) 0 ml IV STAT PRN; Protocol PRN Reason: Hypoglycemia Protocol Last Admin: 09/29/17 12:31 Dose: 50 ml Dextrose (Glutose 15) 0 gm PO ONCE PRN; Protocol PRN Reason: Hypoglycemia Protocol Enoxaparin Sodium (Lovenox) 40 mg SC DAILY [facility] Last Admin: 09/30/17 09:12 Dose: 40 mg Glucagon (Glucagen Diagnostic Kit) 0 mg IM STAT PRN; Protocol PRN Reason: Hypoglycemia Protocol Dextrose/Sodium Chloride (Dextrose 5%/0.9% Ns 1000 Ml) 1,000 mls @ 100 mls/hr IV .Q10H IAN Last Admin: 09/30/17 04:28 Dose: 100 mls/hr Dextrose (Dextrose 5% In Water 1000 Ml) 1,000 mls @ 0 mls/hr IV .Q0M PRN; Protocol; Per Protocol PRN Reason: Hypoglycemia Protocol Acyclovir 500 mg/ Sodium (Chloride) 100 mls @ 100 mls/hr IV Q8H IAN PRN Reason: Protocol Last Admin: 09/30/17 09:03 Dose: 100 mls/hr Lorazepam (Ativan) 0.5 mg IVP ONCE PRN PRN Reason: Agitation Last Admin: 09/29/17 14:23 Dose: 0.5 mg Multivitamins/Vitamin C (Multi-Delyn Liquid) 5 ml PO DAILY [facility] Last Admin: 09/29/17 15:36 Dose: 5 ml Oxcarbazepine (Trileptal) 150 mg PO BID [facility] Last Admin: 09/29/17 17:53 Dose: 150 mg Pneumococcal Polyvalent Vaccine (Pneumovax 23 Vaccine) 0.5 ml SC .ONCE ONE Stop: 10/01/17 10:01 Quetiapine Fumarate (Seroquel) 25 mg PO DAILY [facility] Thiamine HCl (Vitamin B1 Tab) 200 mg PO BID [facility] Last Admin: 09/30/17 09:11 Dose: 200 mg Vitamin A (Vitamin A & D Oint Ud Foilpak) 1 ea TOP BID [facility] Last Admin: 09/30/17 09:13 Dose: 1 ea - Labs Labs: 09/30/17 07:59 09/30/17 07:59 Assessment and Plan - Assessment and Plan (Free Text) Assessment: 27 yr old woman who most likely is suffering from delirium, differential of postictal state, stroke, or encephalitis. We have started a combination of seroquel, trileptal, and acyclovir which seems to have cleared her mentation. It is also likely that the medications she ingested are starting to clear her system. Plan: 1. MRI Brain with and without contrast 2. continue acyclovir 3. continue seroquel bid 4. continue trieptal 150 mg bid . 5. Will need to go to [facility] inpatient psych when discharged. 6. Need psych to recommend antidepressant. Dr. Bowens
[2017-09-30] MEDS: Potassium Chloride 20 mEq/15 ml LIQ UD PO SCH ×3 (10:30→22:12)
--- NOTE | 2017-09-30 12:00 | CARD ---
APPROVED REPORT EKG Measurement Heart [id number] <Conclusion> Sinus tachycardia Nonspecific ST and T wave abnormality Abnormal ECG
--- NOTE | 2017-09-30 12:01 | CARD ---
APPROVED REPORT EKG Measurement Heart [id number] <Conclusion> Poor data quality, interpretation may be adversely affected Sinus tachycardia with short [place] Possible Inferior infarct, age undetermined Abnormal ECG
--- NOTE | 2017-09-30 12:01 | CARD ---
APPROVED REPORT EKG Measurement Heart [id number] <Conclusion> Sinus tachycardia Possible Inferior infarct, age undetermined Abnormal ECG
--- NOTE | 2017-09-30 13:36 | MRI ---
PROCEDURE: MRI BRAIN WITH AND WITHOUT CONTRAST HISTORY: stroke, history of dizziness COMPARISON: None. TECHNIQUE: Multiplanar, multisequence MR images of the brain were obtained with and without intravenous contrast enhancement. FINDINGS: HEMORRHAGE: None DWI: No evidence of an acute or early subacute infarction. BRAIN PARENCHYMA: No mass,mass effect or edema. No atrophy or chronic microvascular ischemic changes. ENHANCEMENT: No abnormal intracranial enhancement. VENTRICLES: Unremarkable. No hydrocephalus. CRANIUM: Unremarkable. ORBITS: Grossly unremarkable. PARANASAL SINUSES/MASTOIDS: Clear VASCULAR SYSTEM: Skull base flow voids intact. OTHER FINDINGS: None . IMPRESSION: No evidence of acute infarction or intracranial hemorrhage. No evidence of enhancing mass or abnormal enhancement in the brain parenchyma.
--- NOTE | 2017-09-30 18:01 | CP.PCM.PN ---
Subjective - Date & Time of Evaluation Date of Evaluation: 09/30/17 Time of Evaluation: 09:30 - Subjective Subjective: seen and examined by me this morning and later this afternoon. She denies any past history of depression.Denies any stress or mental disorder in the past. She is here last 3months and planning to go back to [facility] in October 2017. She has been going through a lot without her mothers support over here made her to make this decision which she thinks its stupid Objective - Vital Signs/Intake and Output Vital Signs (last 24 hours): Temp Pulse Resp BP Pulse Ox 98.3 F 81 20 105/51 L 100 09/30/17 16:00 09/30/17 16:00 09/30/17 16:00 09/30/17 16:00 09/30/17 16:00 Intake and Output: 09/30/17 09/30/17 06:59 18:59 Intake Total 1620 2075 Output Total 450 1550 Balance 1170 525 - Medications Medications: Current Medications Dextrose (Dextrose 50% Inj) 0 ml IV STAT PRN; Protocol PRN Reason: Hypoglycemia Protocol Last Admin: 09/29/17 12:31 Dose: 50 ml Dextrose (Glutose 15) 0 gm PO ONCE PRN; Protocol PRN Reason: Hypoglycemia Protocol Enoxaparin Sodium (Lovenox) 40 mg SC DAILY [facility] Last Admin: 09/30/17 09:12 Dose: 40 mg Glucagon (Glucagen Diagnostic Kit) 0 mg IM STAT PRN; Protocol PRN Reason: Hypoglycemia Protocol Dextrose/Sodium Chloride (Dextrose 5%/0.9% Ns 1000 Ml) 1,000 mls @ 100 mls/hr IV .Q10H IAN Last Admin: 09/30/17 16:02 Dose: 100 mls/hr Dextrose (Dextrose 5% In Water 1000 Ml) 1,000 mls @ 0 mls/hr IV .Q0M PRN; Protocol; Per Protocol PRN Reason: Hypoglycemia Protocol Acyclovir 500 mg/ Sodium (Chloride) 100 mls @ 100 mls/hr IV Q8H IAN PRN Reason: Protocol Last Admin: 09/30/17 16:38 Dose: 100 mls/hr Lorazepam (Ativan) 0.5 mg IVP ONCE PRN PRN Reason: Agitation Last Admin: 09/29/17 14:23 Dose: 0.5 mg Multivitamins/Vitamin C (Multi-Delyn Liquid) 5 ml PO DAILY [facility] Last Admin: 09/30/17 10:13 Dose: 5 ml Oxcarbazepine (Trileptal) 150 mg PO BID [facility] Last Admin: 09/30/17 17:33 Dose: 150 mg Pneumococcal Polyvalent Vaccine (Pneumovax 23 Vaccine) 0.5 ml SC .ONCE ONE Stop: 10/01/17 10:01 Potassium Chloride (Potassium Chloride Oral Soln) 40 meq PO Q6H [facility] Stop: 09/30/17 22:31 Last Admin: 09/30/17 16:36 Dose: 40 meq Quetiapine Fumarate (Seroquel) 25 mg PO DAILY [facility] Thiamine HCl (Vitamin B1 Tab) 200 mg PO BID [facility] Last Admin: 09/30/17 17:32 Dose: 200 mg Vitamin A (Vitamin A & D Oint Ud Foilpak) 1 ea TOP BID [facility] Last Admin: 09/30/17 17:33 Dose: 1 ea - Labs Labs: 09/30/17 07:59 09/30/17 07:59 - Constitutional Appears: Non-toxic - Head Exam Head Exam: NORMAL INSPECTION - Eye Exam Eye Exam: Normal appearance - ENT Exam ENT Exam: Mucous Membranes Moist, Normal Oropharynx - Neck Exam Neck Exam: Full ROM, Normal Inspection - Respiratory Exam Respiratory Exam: NORMAL BREATHING PATTERN - Cardiovascular Exam Cardiovascular Exam: REGULAR RHYTHM - GI/Abdominal Exam GI & Abdominal Exam: Soft, Normal Bowel Sounds - Extremities Exam Extremities Exam: Full ROM - Back Exam Back Exam: NORMAL INSPECTION - Neurological Exam Neurological Exam: Awake, Oriented x3 - Psychiatric Exam Psychiatric exam: Flat Affect - Skin Skin Exam: Dry, Intact, Normal Color Assessment and Plan - Assessment and Plan (Free Text) Plan: 1. AMS/ Drug Overdose /Metabolic Encephalopathy - Resolved MRI brain negative she is alert and orientedx3,Patient states that " only today I realized that I am in the hospital" Possible Seizure Activity spoke to Dr Bowens today EEG done at bedside -negative Changed to Trilepta 150mg PO BID Started on Seroquel 25mg PO daily, Thiamine, and MV Low suspicion for infectious etiology - started acyclovir as neurologist suggests temporal lobe abnormality, Acyclovir 500 Q8H 2 Prolonged QTc - resolved - 3. Hypoglycemia Accuchecks Was given D50 x 2 amps in ED --250s Accu checks, continue to monitor Currently on D5-0.9% NS Poor intake and low sugar-continue D5NS 4.SIRS Afebrile, no leukocytosis with left shift, no bandemia, Lactate low procal,off antibiotics 5.suicidal attempt Psych consulted -We will discuss with psychiatrist about starting antidepressant We will discuss about inpatient [place] psychiatry unit with psychiatrist Continue1:1 6.Prophylaxis - Lovenox
[2017-10-01] MEDS: Acyclovir 500 MG in Sodium Chloride 0.9% 100 ML IV SCH ×3 (00:30→15:58)
--- NOTE | 2017-10-01 01:26 | CP.PCM.PN ---
<Merlyn Peng - Last Filed: 10/01/17 02:35> Subjective - Date & Time of Evaluation Date of Evaluation: 10/01/17 Time of Evaluation: 01:26 - Subjective Subjective: Medicine progress note for Dr. Goodwin Patient was seen and examined at bedside in no acute distress. Family was at bedside. Patient reports feeling better, denies having thoughts of hurting herself or others. She denies having a prior history of depression, suicidal attempts or other psychiatric history. She states that prior to the attempt, she was very lonely for the past three months. She says she was under a lot of pressure and stress because of work and family. She has a plan to finish her project at work and then move back to [facility] to be with family in October. Patient denies chest pain, abdominal pain, nausea, vomiting, fevers, headaches, sore throat, dysuria, hematuria, dyspnea. Objective - Vital Signs/Intake and Output Vital Signs (last 24 hours): Temp Pulse Resp BP Pulse Ox 98.3 F 81 20 105/51 L 100 09/30/17 16:00 09/30/17 16:00 09/30/17 16:00 09/30/17 16:00 09/30/17 16:00 Intake and Output: 09/30/17 10/01/17 18:59 06:59 Intake Total 2175 1360 Output Total 1550 750 Balance 625 610 - Medications Medications: Current Medications Dextrose (Dextrose 50% Inj) 0 ml IV STAT PRN; Protocol PRN Reason: Hypoglycemia Protocol Last Admin: 09/29/17 12:31 Dose: 50 ml Dextrose (Glutose 15) 0 gm PO ONCE PRN; Protocol PRN Reason: Hypoglycemia Protocol Enoxaparin Sodium (Lovenox) 40 mg SC DAILY [facility] Last Admin: 09/30/17 09:12 Dose: 40 mg Glucagon (Glucagen Diagnostic Kit) 0 mg IM STAT PRN; Protocol PRN Reason: Hypoglycemia Protocol Dextrose/Sodium Chloride (Dextrose 5%/0.9% Ns 1000 Ml) 1,000 mls @ 100 mls/hr IV .Q10H [facility] Last Admin: 09/30/17 20:45 Dose: Not Given Dextrose (Dextrose 5% In Water 1000 Ml) 1,000 mls @ 0 mls/hr IV .Q0M PRN; Protocol; Per Protocol PRN Reason: Hypoglycemia Protocol Acyclovir 500 mg/ Sodium (Chloride) 100 mls @ 100 mls/hr IV Q8H IAN PRN Reason: Protocol Last Admin: 10/01/17 00:30 Dose: 100 mls/hr Lorazepam (Ativan) 0.5 mg IVP ONCE PRN PRN Reason: Agitation Last Admin: 09/29/17 14:23 Dose: 0.5 mg Multivitamins/Vitamin C (Multi-Delyn Liquid) 5 ml PO DAILY [facility] Last Admin: 09/30/17 10:13 Dose: 5 ml Oxcarbazepine (Trileptal) 150 mg PO BID [facility] Last Admin: 09/30/17 17:33 Dose: 150 mg Pneumococcal Polyvalent Vaccine (Pneumovax 23 Vaccine) 0.5 ml SC .ONCE ONE Stop: 10/01/17 10:01 Quetiapine Fumarate (Seroquel) 25 mg PO DAILY [facility] Thiamine HCl (Vitamin B1 Tab) 200 mg PO BID [facility] Last Admin: 09/30/17 17:32 Dose: 200 mg Vitamin A (Vitamin A & D Oint Ud Foilpak) 1 ea TOP BID [facility] Last Admin: 09/30/17 17:33 Dose: 1 ea - Labs Labs: 09/30/17 07:59 09/30/17 07:59 - Constitutional Appears: No Acute Distress - Head Exam Head Exam: ATRAUMATIC, NORMAL INSPECTION - Eye Exam Eye Exam: EOMI, Normal appearance - ENT Exam ENT Exam: Mucous Membranes Moist - Respiratory Exam Respiratory Exam: NORMAL BREATHING PATTERN. absent: Rales, Rhonchi, Wheezes, Respiratory Distress - Cardiovascular Exam Cardiovascular Exam: REGULAR RHYTHM, +S1, +S2 - GI/Abdominal Exam GI & Abdominal Exam: Soft, Normal Bowel Sounds. absent: Distended, Firm, Tenderness - Extremities Exam Extremities Exam: Normal Inspection. absent: Pedal Edema, Tenderness - Neurological Exam Neurological Exam: Alert, Awake, Oriented x3 - Psychiatric Exam Psychiatric exam: Flat Affect - Skin Skin Exam: Dry, Intact, Normal Color, Warm Assessment and Plan - Assessment and Plan (Free Text) Plan: AMS/ Drug Overdose /Metabolic Encephalopathy - Resolved - MRI brain negative - she is alert and orientedx3, Patient stated on Monday that "only today I realized that I am in the hospital" - Possible Seizure Activity - EEG done at bedside- negative - Changed to Trilepta 150mg PO BID - Started on Seroquel 25mg PO daily, Thiamine, and MV - Low suspicion for infectious etiology - started acyclovir as neurologist suggests temporal lobe abnormality, Acyclovir 500mg Q8H Suicidal attempt - Psych consulted -We will discuss with psychiatrist about starting antidepressant - Will discuss about inpatient [place] psychiatry unit with psychiatrist - Continue 1:1 Hypoglycemia - Was given D50 x 2 amps in ED --250s - Accuchecks, continue to monitor - Currently on D5-0.9% NS - Poor intake and low sugar-continue D5NS SIRS - Afebrile, no leukocytosis with left shift, no bandemia, Lactate improved; Low procal - UC, BC -negative to date - Discontinued antibiotics Prolonged QTc - resolved Continue to monitor Prophylaxis - Lovenox <Issac Goodwin - Last Filed: 10/01/17 17:08> Objective - Vital Signs/Intake and Output Vital Signs (last 24 hours): Temp Pulse Resp BP Pulse Ox 98.0 F 79 16 100/49 L 100 10/01/17 12:00 10/01/17 12:00 10/01/17 12:00 10/01/17 12:00 10/01/17 12:00 Intake and Output: 10/01/17 10/01/17 06:59 18:59 Intake Total 1860 1160 Output Total 750 900 Balance 1110 260 - Medications Medications: Current Medications Dextrose (Dextrose 50% Inj) 0 ml IV STAT PRN; Protocol PRN Reason: Hypoglycemia Protocol Last Admin: 09/29/17 12:31 Dose: 50 ml Dextrose (Glutose 15) 0 gm PO ONCE PRN; Protocol PRN Reason: Hypoglycemia Protocol Enoxaparin Sodium (Lovenox) 40 mg SC DAILY [facility] Last Admin: 10/01/17 09:43 Dose: Not Given Glucagon (Glucagen Diagnostic Kit) 0 mg IM STAT PRN; Protocol PRN Reason: Hypoglycemia Protocol Dextrose/Sodium Chloride (Dextrose 5%/0.9% Ns 1000 Ml) 1,000 mls @ 100 mls/hr IV .Q10H [facility] Last Admin: 10/01/17 04:54 Dose: 100 mls/hr Dextrose (Dextrose 5% In Water 1000 Ml) 1,000 mls @ 0 mls/hr IV .Q0M PRN; Protocol; Per Protocol PRN Reason: Hypoglycemia Protocol Acyclovir 500 mg/ Sodium (Chloride) 100 mls @ 100 mls/hr IV Q8H I[facility] PRN Reason: Protocol Last Admin: 10/01/17 08:20 Dose: 100 mls/hr Lorazepam (Ativan) 0.5 mg IVP ONCE PRN PRN Reason: Agitation Last Admin: 09/29/17 14:23 Dose: 0.5 mg Multivitamins/Vitamin C (Multi-Delyn Liquid) 5 ml PO DAILY [facility] Last Admin: 10/01/17 09:45 Dose: 5 ml Oxcarbazepine (Trileptal) 150 mg PO BID [facility] Last Admin: 10/01/17 09:45 Dose: 150 mg Quetiapine Fumarate (Seroquel) 25 mg PO DAILY [facility] Last Admin: 10/01/17 09:44 Dose: 25 mg Thiamine HCl (Vitamin B1 Tab) 200 mg PO BID [facility] Last Admin: 10/01/17 09:43 Dose: 200 mg Vitamin A (Vitamin A & D Oint Ud Foilpak) 1 ea TOP BID [facility] Last Admin: 10/01/17 09:43 Dose: 1 ea - Labs Labs: 10/01/17 09:03 10/01/17 09:03 Attending/Attestation - Attestation I have personally seen and examined this patient.: Yes I have fully participated in the care of the patient.: Yes I have reviewed all pertinent clinical information, including history, physical exam and plan: Yes Notes (Text): Seen and examined this morning. patient is sitting and talking,alert and oriented x3. denies pain,Patient states that she was feeling worthless and wanted kill herself. She was feels lonely,felt that no one cares about her and her mother was not answering phone made her to do this. Patient is followed by Dr Bowens neurologist. Patient admitted that she has long history of depression to Dr Bowens.We will continue acyclovir, seroquel and trieptal as per neurologist. D/w Dr Bowens who strongly suggest for psychotherapy and follow psychiatrist for her depression I spoke to our psychiatrist Dr Lucita Pickett . She thinks patient has Adjustment disorder with depressed mood. Needs psychotherapy.Not cleared fro discharge. Psychiatrist will follow her. patient is not eating. Didn't eat breakfast and lunch. Her morning sugar was 66mg/dl.afternoon 93. I will continue d5ns.Encourage to eat,. d/w her uncle Miguel Angel. They brought [place] islander food. They are going to support her until her parents can come and help her
[2017-10-01] MEDS: Dextrose 5%/0.9% NS 1,000 ML IV SCH ×3 (04:54→19:13)
[2017-10-01 09:08] LABS: BASO # 0.1 K/uL (0.0-0.2); BASO % 0.7 % (0.0-2.0); EOS # 0.2 K/uL (0.0-0.7); HEMOGLOBIN 11.4 g/dL (11.0-16.0); LYMPH # 2.2 K/uL (1.0-4.3); LYMPH % 26.6 % (20.0-40.0); MEAN CELL VOLUME 83.8 fL (81.0-99.0); MEAN CORPUSCULAR HEMOGLOBIN 28.1 pg (27.0-31.0); MEAN CORPUSCULAR HGB CONC 33.5 g/dL (33.0-37.0); MEAN PLATELET VOLUME 7.7 fL (7.2-11.7); MONO # 0.6 K/uL (0.0-0.8); MONO % 7.4 % (0.0-10.0); NEUT # 5.2 K/uL (1.8-7.0); NEUT % 63.3 % (50.0-75.0); RBC 4.05 Mil/uL (3.80-5.20); RED CELL DISTRIBUTION WIDTH 14.5 % (11.5-14.5); WHITE BLOOD COUNT 8.2 K/uL (4.8-10.8)
[2017-10-01 09:29] LABS: ALB/GLOB RATIO 1.4 (1.0-2.1); ALBUMIN 3.8 g/dL (3.5-5.0); ALT/SGPT 28 U/L (9-52); AST/SGOT 39 U/L (14-36); BLOOD UREA NITROGEN 3 mg/dL (7-17); CALCIUM 8.9 mg/dl (8.6-10.4); GFR AFRICAN-AMERICAN > 60; GFR NON-AFRICAN AMERICAN > 60
[2017-10-01] MEDS: Vitamins A & D Oint UD Foilpak TOP SCH ×2 (09:43→17:35)
[2017-10-01] MEDS: Enoxaparin 40 mg Syringe SC SCH (09:43)
[2017-10-01] MEDS: Multiple Vitamins Oral Solution PO SCH (09:45)
[2017-10-01] MEDS ORDERED: Pneumococcal 23-Valent Vaccine SC ONE (10:00)
--- NOTE | 2017-10-01 11:28 | CP.PCM.PN ---
Subjective - Date & Time of Evaluation Date of Evaluation: 10/01/17 Time of Evaluation: 11:24 - Subjective Subjective: Ms. Valle was seen and examined at the bedside. She is alert, oriented in all spheres. She denies any headache, dizziness. She is able to participate in a pleasant conversation and remains on 1:1 sitter for patient safety. She is able to follow simple commands and claims of poor appetite. She had a lengthily conversation with Dr. Bowens which she determined that she is risk for suicidal. There was no untoward events overnight. Objective - Vital Signs/Intake and Output Vital Signs (last 24 hours): Temp Pulse Resp BP Pulse Ox 98.5 F 92 H 20 109/68 100 10/01/17 08:00 10/01/17 08:00 10/01/17 08:00 10/01/17 08:00 10/01/17 08:00 Intake and Output: 10/01/17 10/01/17 06:59 18:59 Intake Total 1860 740 Output Total 750 Balance 1110 740 - Medications Medications: Current Medications Dextrose (Dextrose 50% Inj) 0 ml IV STAT PRN; Protocol PRN Reason: Hypoglycemia Protocol Last Admin: 09/29/17 12:31 Dose: 50 ml Dextrose (Glutose 15) 0 gm PO ONCE PRN; Protocol PRN Reason: Hypoglycemia Protocol Enoxaparin Sodium (Lovenox) 40 mg SC DAILY [facility] Last Admin: 10/01/17 09:43 Dose: Not Given Glucagon (Glucagen Diagnostic Kit) 0 mg IM STAT PRN; Protocol PRN Reason: Hypoglycemia Protocol Dextrose/Sodium Chloride (Dextrose 5%/0.9% Ns 1000 Ml) 1,000 mls @ 100 mls/hr IV .Q10H [facility] Last Admin: 10/01/17 04:54 Dose: 100 mls/hr Dextrose (Dextrose 5% In Water 1000 Ml) 1,000 mls @ 0 mls/hr IV .Q0M PRN; Protocol; Per Protocol PRN Reason: Hypoglycemia Protocol Acyclovir 500 mg/ Sodium (Chloride) 100 mls @ 100 mls/hr IV Q8H [facility] PRN Reason: Protocol Last Admin: 10/01/17 08:20 Dose: 100 mls/hr Lorazepam (Ativan) 0.5 mg IVP ONCE PRN PRN Reason: Agitation Last Admin: 09/29/17 14:23 Dose: 0.5 mg Multivitamins/Vitamin C (Multi-Delyn Liquid) 5 ml PO DAILY [facility] Last Admin: 10/01/17 09:45 Dose: 5 ml Oxcarbazepine (Trileptal) 150 mg PO BID [facility] Last Admin: 10/01/17 09:45 Dose: 150 mg Quetiapine Fumarate (Seroquel) 25 mg PO DAILY [facility] Last Admin: 10/01/17 09:44 Dose: 25 mg Thiamine HCl (Vitamin B1 Tab) 200 mg PO BID [facility] Last Admin: 10/01/17 09:43 Dose: 200 mg Vitamin A (Vitamin A & D Oint Ud Foilpak) 1 ea TOP BID [facility] Last Admin: 10/01/17 09:43 Dose: 1 ea - Labs Labs: 10/01/17 09:03 10/01/17 09:03 - Constitutional Appears: No Acute Distress - Head Exam Head Exam: NORMAL INSPECTION - Eye Exam Pupil Exam: PERRL - Neurological Exam Neurological Exam: Alert, Awake, Oriented x3 Neuro motor strength exam: Left Upper Extremity: 5, Right Upper Extremity: 5, Left Lower Extremity: 5, Right Lower Extremity: 5 Additional comments: alert, oriented, follow commands Assessment and Plan (1) Overdose Assessment & Plan: Case discussed with Dr. Bowens, continue all current medical regimen. Recommend to follow any psychiatry orders, in-patient psychiatry treatment, hydration. Status: Acute
--- NOTE | 2017-10-01 15:48 | CARD ---
APPROVED REPORT EKG Measurement Heart [id number] <Conclusion> Sinus tachycardia Nonspecific ST and T wave abnormality Abnormal ECG
--- NOTE | 2017-10-01 18:08 | PCM.PYCHPN ---
Psychiatric Progress Note - Psychiatric Progress Note Patient seen today, length of contact: 30 minutes Patient Chief Complaint: "I have regret feelings" Problems Identified/Issues Discussed: This is a 27 year old Single, female who recently moved to [facility] for her job related project for 3 month in 06/2017. 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 Pt stated she is living by herself in a sharing apartment. She has no past Psychiatric history and no past medical history. She was admitted to hospital after she attempted suicide by OD on pills. Pt stated that she had regrets about her suicide attempts. She further explained that this is a first time in her life that she had been from her family. She is missing her parents and younger brother. Additionally, stated that she is feeling sad that her parents does not care and have no time to answers her phone calls. Pt explained further that and she was not able to contact with her family members for many days and she felt that she had been abandon and neglect by them. She felt worthless about herself. Pt stated on the day of the suicide attempt she was feeling more tired, depressed, helpless, with low appetite. She felt rejected after she was not able to reach her mother. She bought and consumed Unisom 50mg, 60 tablets and Advil PM, 120 tablets. Pt further stated that her action was impulsive and was attention seeking. Because pt called and informed her mother about her suicide attempt. Pt stated that she start feeling "sorry and regrets" about her attempt. She had one episode of vomiting. Pt stated that her mother called pt's roommate, who called 911. Pt stated that she does not want to hurt her mother and other family members feeling. She knows that all family members love and care about her. She has a good social support from her family. Her maternal uncle also came to see her and after discharge she has a plan to stay with them in [place] for few weeks until her parents will be arrived. Pt enjoys listening music and spending time in watching movies. Collateral information was obtained from the pt's uncle Taryn Head and aunt Marianne Head [phone]. They reported that they never observed or noticed that their niece is going through depression. Additionally, They stated that pt is visiting [place] every other weekend. Pt came from [facility] in June for her job related project. This is a first time pt had been from her family members. Pt is missing her family members. They reported that they are going to take pt with them in [place] after her discharge. Additionally, they stated that pt's parents are also coming to [facility] in 1-2 week. FH: DENIED Substance abuse Hx: denied PMH: gastritis Legal Hx: denied Allergies: NKDA PPHx: Denied DSM 5 Symptoms Update: MDD, Single, severe, Suicide attempt Medication Change: No Medical Record Reviewed: Yes Mental Status Examination - Cognitive Function Orientation: Person, Place, Situation, Time Memory: Intact Attention: WNL Concentration: WNL Association: [facility] Fund of Knowledge: [facility] Decription of patient's judgement and insights: fair/fair Addtional comments: Pt was calm, cooperative - Mood Mood: Other (I have regrets about my suicide attempt) - Affect Affect: Constricted - Speech Speech: Appropriate, Soft - Formal Thought Process Formal Thought Process: No Impairment, Other (fixative to be discharge) - Suicidal Ideation Suicidal Ideation: No Plan: denied - Homicidal Ideation Homicidal Ideation: No Plan: denied Goal/Treatment Plan - Goal/Treatment Plan Need for Continued Stay: Discharge may exacerbated symptoms Progress Toward Problem(s) and Goals/Treatment Plan: No medication is recommendation because pt is not interested. Recommend individual Cognitive behavioral Therapy. Monitor depressive symptoms. Monitor Vitals. Psych C/L team will follow Pt is not cleared psychiatrically for d/c. Pt's information collaborated with primary care team. Supportive therapy was provided. Continue treatment and management as per primary team.
[2017-10-01 22:02] VITALS: RESP 20
[2017-10-02] MEDS: Acyclovir 500 MG in Sodium Chloride 0.9% 100 ML IV SCH ×3 (00:29→16:33)
--- NOTE | 2017-10-02 07:29 | CP.PCM.PN ---
Subjective - Date & Time of Evaluation Date of Evaluation: 10/02/17 Time of Evaluation: 07:29 - Subjective Subjective: Ms. Valle was seen and examined at the bedside. She is alert, oriented in all spheres. She denies any headache, dizziness. She is able to participate in a pleasant conversation and remains on 1:1 sitter for patient safety. She is able to follow simple commands and claims of poor appetite. She had a lengthily conversation with Dr. Bowens which she determined that she is risk for suicidal. She was also seen by a psychiatrist yesterday.There was no untoward events overnight. Objective - Vital Signs/Intake and Output Vital Signs (last 24 hours): Temp Pulse Resp BP Pulse Ox 98.7 F 78 20 101/57 L 98 10/02/17 00:04 10/02/17 00:04 10/02/17 00:04 10/02/17 00:04 10/02/17 00:04 Intake and Output: 10/02/17 10/02/17 06:59 18:59 Intake Total 60 Output Total 0 Balance 60 - Medications Medications: Current Medications Dextrose (Dextrose 50% Inj) 0 ml IV STAT PRN; Protocol PRN Reason: Hypoglycemia Protocol Last Admin: 09/29/17 12:31 Dose: 50 ml Dextrose (Glutose 15) 0 gm PO ONCE PRN; Protocol PRN Reason: Hypoglycemia Protocol Enoxaparin Sodium (Lovenox) 40 mg SC DAILY [facility] Last Admin: 10/01/17 09:43 Dose: Not Given Glucagon (Glucagen Diagnostic Kit) 0 mg IM STAT PRN; Protocol PRN Reason: Hypoglycemia Protocol Dextrose (Dextrose 5% In Water 1000 Ml) 1,000 mls @ 0 mls/hr IV .Q0M PRN; Protocol; Per Protocol PRN Reason: Hypoglycemia Protocol Acyclovir 500 mg/ Sodium (Chloride) 100 mls @ 100 mls/hr IV Q8H [facility] PRN Reason: Protocol Last Admin: 10/02/17 00:29 Dose: 100 mls/hr Lorazepam (Ativan) 0.5 mg IVP ONCE PRN PRN Reason: Agitation Last Admin: 09/29/17 14:23 Dose: 0.5 mg Multivitamins/Vitamin C (Multi-Delyn Liquid) 5 ml PO DAILY [facility] Last Admin: 10/01/17 09:45 Dose: 5 ml Oxcarbazepine (Trileptal) 150 mg PO BID [facility] Last Admin: 10/01/17 17:33 Dose: 150 mg Pantoprazole Sodium (Protonix Ec Tab) 40 mg PO DAILY [facility] Quetiapine Fumarate (Seroquel) 25 mg PO DAILY [facility] Last Admin: 10/01/17 09:44 Dose: 25 mg Thiamine HCl (Vitamin B1 Tab) 200 mg PO BID [facility] Last Admin: 10/01/17 17:32 Dose: 200 mg Vitamin A (Vitamin A & D Oint Ud Foilpak) 1 ea TOP BID [facility] Last Admin: 10/01/17 17:35 Dose: 1 ea - Labs Labs: 10/01/17 09:03 10/01/17 09:03 - Constitutional Appears: No Acute Distress - Head Exam Head Exam: NORMAL INSPECTION - Eye Exam Pupil Exam: PERRL - Neurological Exam Neurological Exam: Alert, Awake, Oriented x3 Neuro motor strength exam: Left Upper Extremity: 4, Right Upper Extremity: 4, Left Lower Extremity: 4, Right Lower Extremity: 4 Additional comments: neurological unchanged from previous examination. Assessment and Plan (1) Overdose Assessment & Plan: Case discussed with DR. Rueda, continue all current medical regimen. Recommend to follow any psychiatry orders, in-patient psychiatry treatment, hydration, and treat any electrolyte abnormalities. Status: Acute
--- NOTE | 2017-10-02 08:02 | CP.PCM.PN ---
Subjective - Date & Time of Evaluation Date of Evaluation: 10/02/17 Time of Evaluation: 08:02 Objective - Vital Signs/Intake and Output Vital Signs (last 24 hours): Temp Pulse Resp BP Pulse Ox 98.4 F 104 H 20 99/61 L 96 10/02/17 08:00 10/02/17 08:00 10/02/17 08:00 10/02/17 08:00 10/02/17 08:00 Intake and Output: 10/02/17 10/02/17 06:59 18:59 Intake Total 60 Output Total 0 Balance 60 - Medications Medications: Current Medications Dextrose (Dextrose 50% Inj) 0 ml IV STAT PRN; Protocol PRN Reason: Hypoglycemia Protocol Last Admin: 09/29/17 12:31 Dose: 50 ml Dextrose (Glutose 15) 0 gm PO ONCE PRN; Protocol PRN Reason: Hypoglycemia Protocol Enoxaparin Sodium (Lovenox) 40 mg SC DAILY [facility] Last Admin: 10/01/17 09:43 Dose: Not Given Glucagon (Glucagen Diagnostic Kit) 0 mg IM STAT PRN; Protocol PRN Reason: Hypoglycemia Protocol Dextrose (Dextrose 5% In Water 1000 Ml) 1,000 mls @ 0 mls/hr IV .Q0M PRN; Protocol; Per Protocol PRN Reason: Hypoglycemia Protocol Acyclovir 500 mg/ Sodium (Chloride) 100 mls @ 100 mls/hr IV Q8H [facility] PRN Reason: Protocol Last Admin: 10/02/17 00:29 Dose: 100 mls/hr Lorazepam (Ativan) 0.5 mg IVP ONCE PRN PRN Reason: Agitation Last Admin: 09/29/17 14:23 Dose: 0.5 mg Multivitamins/Vitamin C (Multi-Delyn Liquid) 5 ml PO DAILY [facility] Last Admin: 10/01/17 09:45 Dose: 5 ml Oxcarbazepine (Trileptal) 150 mg PO BID [facility] Last Admin: 10/01/17 17:33 Dose: 150 mg Pantoprazole Sodium (Protonix Ec Tab) 40 mg PO DAILY [facility] Quetiapine Fumarate (Seroquel) 25 mg PO DAILY [facility] Last Admin: 10/01/17 09:44 Dose: 25 mg Thiamine HCl (Vitamin B1 Tab) 200 mg PO BID [facility] Last Admin: 10/01/17 17:32 Dose: 200 mg Vitamin A (Vitamin A & D Oint Ud Foilpak) 1 ea TOP BID [facility] Last Admin: 10/01/17 17:35 Dose: 1 ea - Labs Labs: 10/01/17 09:03 10/01/17 09:03
[2017-10-02 08:09] LABS: BASO % 0.6 % (0.0-2.0); EOS # 0.2 K/uL (0.0-0.7); EOS % 2.2 % (0.0-4.0); HEMOGLOBIN 11.3 g/dL (11.0-16.0); LYMPH # 1.6 K/uL (1.0-4.3); LYMPH % 20.3 % (20.0-40.0); MEAN CELL VOLUME 82.9 fL (81.0-99.0); MEAN CORPUSCULAR HEMOGLOBIN 28.1 pg (27.0-31.0); MEAN CORPUSCULAR HGB CONC 33.9 g/dL (33.0-37.0); MEAN PLATELET VOLUME 8.4 fL (7.2-11.7); MONO # 0.4 K/uL (0.0-0.8); MONO % 5.4 % (0.0-10.0); NEUT # 5.7 K/uL (1.8-7.0); NEUT % 71.5 % (50.0-75.0); RED CELL DISTRIBUTION WIDTH 14.2 % (11.5-14.5); WHITE BLOOD COUNT 7.9 K/uL (4.8-10.8)
[2017-10-02 08:29] LABS: ALB/GLOB RATIO 1.1 (1.0-2.1); ALBUMIN 3.4 g/dL (3.5-5.0); ALT/SGPT 19 U/L (9-52); AST/SGOT 23 U/L (14-36); BLOOD UREA NITROGEN 7 mg/dL (7-17); CALCIUM 8.8 mg/dl (8.6-10.4); GFR AFRICAN-AMERICAN > 60; GFR NON-AFRICAN AMERICAN > 60
[2017-10-02] MEDS ORDERED: Pantoprazole 40 mg EC Tab PO SCH (10:00)
[2017-10-02] MEDS: Enoxaparin 40 mg Syringe SC SCH (10:28)
[2017-10-02] MEDS: Vitamins A & D Oint UD Foilpak TOP SCH (10:29)
[2017-10-02] MEDS: Multiple Vitamins Oral Solution PO SCH (10:30)
[2017-10-02] MEDS ORDERED: Gadodiamide 287 MG/ML VIAL (15ML) IV ONE ×2 (11:55)
--- NOTE | 2017-10-02 14:07 | PCM.PYCHPN ---
Psychiatric Progress Note - Psychiatric Progress Note Patient seen today, length of contact: 30 minutes Patient Chief Complaint: I am feeling fine.' Problems Identified/Issues Discussed: Patient seen and evaluated, chart reviewed and discussed with the nurse. As per the staff, patient gained consciousness over the weekend. Today patient was found alert, awake and oriented to time place and person. Patient is feeling guilty for the suicide attempt. She reports improvement in her mood but she still remained isolated, and withdrawn. However she denies any suicidal ideation or homicidal ideation. She is taking medications and denies any side effects. Met with the family. Family is taking patient to the [facility]. As per the uncle, he takes full responsibility and they will give her medications over there. Supportive therapy and psychoeducation were given. Medication Change: Yes Medical Record Reviewed: Yes Mental Status Examination - Cognitive Function Orientation: Person, Place, Situation, Time Memory: Intact Attention: WNL Concentration: WNL Association: WNL Fund of Knowledge: WNL - Mood Mood: Depressed - Affect Affect: Constricted - Speech Speech: Appropriate, Soft - Formal Thought Process Formal Thought Process: No Impairment - Suicidal Ideation Suicidal Ideation: No - Homicidal Ideation Homicidal Ideation: No Goal/Treatment Plan - Goal/Treatment Plan Need for Continued Stay: Discharge may exacerbated symptoms Progress Toward Problem(s) and Goals/Treatment Plan: Continue Trileptal Continue Seroquel Start Zoloft 50 mg daily Patient psychiatrically stable and clear for discharge.
--- NOTE | 2017-10-02 15:05 | CP.PCM.DIS ---
<Merlyn Peng - Last Filed: 10/02/17 16:39> Provider - Provider Date of Admission: 09/28/17 12:56 Attending physician: Issac Goodwin MD Consults: Critical care: Dr. Aleksandra Poe Psychiatry: Dr. Tavares Neurology: Dr. Bowens Time Spent in preparation of Discharge (in minutes): 45 Hospital Course - Lab Results Lab Results: Micro Results 09/28/17 16:36 Blood-Venous Blood Culture - Preliminary NO GROWTH AFTER 3 DAYS 09/28/17 16:36 Blood-Venous Blood Culture - Preliminary NO GROWTH AFTER 3 DAYS 09/28/17 16:20 Naris MRSA Culture (Admit) - Final MRSA NOT DETECTED 09/28/17 14:29 Urine Urine Culture - Final No Growth (<1,000 CFU/ML) Most Recent Lab Values WBC 7.9 K/uL (4.8-10.8) 10/02/17 08:01 RBC 4.00 Mil/uL (3.80-5.20) 10/02/17 08:01 Hgb 11.3 g/dL (11.0-16.0) 10/02/17 08:01 Hct 33.2 % (34.0-47.0) L 10/02/17 08:01 MCV 82.9 fL (81.0-99.0) 10/02/17 08:01 MCH 28.1 pg (27.0-31.0) 10/02/17 08:01 MCHC 33.9 g/dL (33.0-37.0) 10/02/17 08:01 RDW 14.2 % (11.5-14.5) 10/02/17 08:01 Plt Count 251 K/uL (130-400) 10/02/17 08:01 MPV 8.4 fL (7.2-11.7) 10/02/17 08:01 Neut % (Auto) 71.5 % (50.0-75.0) 10/02/17 08:01 Lymph % (Auto) 20.3 % (20.0-40.0) 10/02/17 08:01 [place] % (Auto) 5.4 % (0.0-10.0) 10/02/17 08:01 Eos % (Auto) 2.2 % (0.0-4.0) 10/02/17 08:01 Baso % (Auto) 0.6 % (0.0-2.0) 10/02/17 08:01 Neut # (Auto) 5.7 K/uL (1.8-7.0) 10/02/17 08:01 Lymph # (Auto) 1.6 K/uL (1.0-4.3) 10/02/17 08:01 [place] # (Auto) 0.4 K/uL (0.0-0.8) 10/02/17 08:01 Eos # (Auto) 0.2 K/uL (0.0-0.7) 10/02/17 08:01 Baso # (Auto) 0.0 K/uL (0.0-0.2) 10/02/17 08:01 Neutrophils % (Manual) 89 % (50-75) H 09/29/17 06:12 Lymphocytes % (Manual) 8 % (20-40) L 09/29/17 06:12 Monocytes % (Manual) 3 % (0-10) 09/29/17 06:12 Platelet Estimate Normal (NORMAL) 09/29/17 06:12 RBC Morphology Normal 09/29/17 06:12 Puncture Site Rradial 09/28/17 13:45 pCO2 29 mm/Hg (35-45) L 09/28/17 13:45 pO2 27 mm/Hg (30-55) L 09/29/17 05:35 HCO3 18.0 mmol/L (21-28) L 09/28/17 13:45 ABG pH 7.34 (7.35-7.45) L 09/28/17 13:45 ABG Total CO2 16.5 mmol/L (22-28) L 09/28/17 13:45 ABG O2 Saturation 97.4 % (95-98) 09/28/17 13:45 ABG Base Excess -8.9 mmol/L (-2.0-3.0) L 09/28/17 13:45 ABG Hemoglobin 12.2 g/dL (11.7-17.4) 09/28/17 13:45 ABG Carboxyhemoglobin 0.3 % (0.5-1.5) L 09/28/17 13:45 POC ABG HHb (Measured) 2.6 % (0.0-5.0) 09/28/17 13:45 ABG Methemoglobin 0.7 % (0.0-3.0) 09/28/17 13:45 Barry Test Pos 09/28/17 13:45 VBG pH 7.49 (7.32-7.43) H 09/29/17 05:35 VBG pCO2 29 mmHg (40-60) L 09/29/17 05:35 VBG HCO3 23.7 mmol/L 09/29/17 05:35 VBG Total CO2 23.0 mmol/L (22-28) 09/29/17 05:35 VBG O2 Sat (Calc) 56.9 % (40-65) 09/29/17 05:35 VBG Base Excess -0.2 mmol/L (0.0-2.0) L 09/29/17 05:35 VBG Potassium 2.5 mmol/L (3.6-5.2) L* 09/29/17 05:35 A-a O2 Difference -15.0 mm/Hg 09/28/17 13:45 Respiratory Index -0.1 09/28/17 13:45 Hgb O2 Saturation 96.3 % (95.0-98.0) 09/28/17 13:45 Sodium 137.0 mmol/l (132-148) 09/29/17 05:35 Chloride 104.0 mmol/L (98-107) 09/29/17 05:35 Glucose 110 mg/dl (65-105) H 09/29/17 05:35 Lactate 1.5 mmol/L (0.7-2.1) 09/29/17 05:35 FiO2 21.0 % 09/28/17 13:45 Crit Value Called To Reginald sanchez rn 09/29/17 05:35 Crit Value Called By Coleman food technician 09/29/17 05:35 Crit Value Read Back Y 09/29/17 05:35 Blood Gas Notified Time 540 09/29/17 05:35 Sodium 138 mmol/L (132-148) 10/02/17 08:01 Potassium 3.5 mmol/L (3.6-5.2) L 10/02/17 08:01 Chloride 103 mmol/L (98-107) 10/02/17 08:01 Carbon Dioxide 24 mmol/L (22-30) 10/02/17 08:01 Anion Gap 15 (10-20) 10/02/17 08:01 BUN 7 mg/dL (7-17) 10/02/17 08:01 Creatinine 0.6 mg/dL (0.7-1.2) L 10/02/17 08:01 Est GFR ( Amer) > 60 10/02/17 08:01 Est GFR (Non-Af Amer) > 60 10/02/17 08:01 POC Glucose (mg/dL) 110 mg/dL (65-110) 10/02/17 11:11 Random Glucose 135 mg/dL (65-105) H 10/02/17 08:01 Serum Osmolality 295 mosm/kg (272-300) 09/29/17 09:10 Lactic Acid 3.5 mmol/L (0.7-2.1) H 09/28/17 15:20 Calcium 8.8 mg/dl (8.6-10.4) 10/02/17 08:01 Phosphorus 5.1 mg/dL (2.5-4.5) H 10/02/17 08:01 Magnesium 1.7 mg/dL (1.6-2.3) 10/02/17 08:01 Total Bilirubin 0.4 mg/dL (0.2-1.3) 10/02/17 08:01 AST 23 U/L (14-36) 10/02/17 08:01 ALT 19 U/L (9-52) 10/02/17 08:01 Alkaline Phosphatase 47 U/L (38-126) 10/02/17 08:01 Ammonia < 9 umol/L (9-33) L 09/28/17 14:24 Total Creatine Kinase 86 U/L (30-135) 09/28/17 12:19 Total Protein 6.3 g/dL (6.3-8.3) 10/02/17 08:01 Albumin 3.4 g/dL (3.5-5.0) L 10/02/17 08:01 Globulin 2.9 gm/dL (2.2-3.9) 10/02/17 08:01 Albumin/Globulin Ratio 1.1 (1.0-2.1) 10/02/17 08:01 Procalcitonin < 0.05 NG/ML (0.19-0.49) L 09/29/17 09:10 Beta HCG, Quant < 2.39 mIU/ML 09/29/17 17:52 Venous Blood Potassium 2.5 mmol/L (3.6-5.2) L* 09/29/17 05:35 Urine Color Yellow (YELLOW) 09/28/17 12:19 Urine Clarity Clear (Clear) 09/28/17 12:19 Urine pH 6.0 (5.0-8.0) 09/28/17 12:19 Ur Specific Excel 1.006 (1.003-1.030) 09/28/17 12:19 Urine Protein Negative mg/dL (NEGATIVE) 09/28/17 12:19 Urine Glucose (UA) Normal mg/dL (Normal) 09/28/17 12:19 Urine Ketones Negative mg/dL (NEGATIVE) 09/28/17 12:19 Urine Blood Negative (NEGATIVE) 09/28/17 12:19 Urine Nitrate Negative (NEGATIVE) 09/28/17 12:19 Urine Bilirubin Negative (NEGATIVE) 09/28/17 12:19 Urine Urobilinogen Normal mg/dL (0.2-1.0) 09/28/17 12:19 Ur Leukocyte Esterase Neg Bernie/uL (Negative) 09/28/17 12:19 Urine WBC (Auto) < 1 /hpf (0-5) 09/28/17 12:19 Urine RBC (Auto) < 1 /hpf (0-3) 09/28/17 12:19 Ur Squamous Epith Cells < 1 /hpf (0-5) 09/28/17 12:19 Urine Osmolality 291 mosm/kg (300-1000) L 09/28/17 15:20 Salicylates < 1.0 mg/dL 1 09/28/17 12:19 Urine Opiates Screen Negative (NEGATIVE) 09/28/17 12:19 Urine Methadone Screen Negative (NEGATIVE) 09/28/17 12:19 Acetaminophen < 10.0 ug/mL (10.0-30.0) L 09/28/17 12:19 Ur Barbiturates Screen Negative (NEGATIVE) 09/28/17 12:19 Ur Phencyclidine Scrn Negative (NEGATIVE) 09/28/17 12:19 Ur Amphetamines Screen Negative (NEGATIVE) 09/28/17 12:19 U Benzodiazepines Scrn Negative (NEGATIVE) 09/28/17 12:19 U Oth Cocaine Metabols Negative (NEGATIVE) 09/28/17 12:19 U Cannabinoids Screen Negative (NEGATIVE) 09/28/17 12:19 Alcohol, Quantitative < 10 mg/dl (0-10) 09/28/17 12:19 - Hospital Course Hospital Course: HPI: This is a 27 yo female, originally from [facility], with unknown past medical hx , presenting to [facility] ER by ambulance. Pt is unresponsive and unable to provide any history. Pt is visiting from [facility] for a limited time only. Patient was found unresponsive at her home this morning. Apparently her housemates found her unresponsive and they called 911. They say that 2 pill bottles were found by her side. One is a unisom bottle of 60 softgel tabs and the other is a bottle of advil pm with 120 coated tablets. The advil container was found with liquefied contents and half the bottle missing. The unisom container was completely empty. Housemates say she was talking on the phone with parents in [place] earlier. Nothing seemed out of the ordinary. They deny she had homicidal or suicidal ideation. Pt does have a room mate, but so far unable to be contacted. Pt given dextrose and ativan IV in ER. ICU consult placed, started on abx to cover meningitis and bicarb drip. Pt hypoglycemic in ER. PMH: unknown Past psych hx: unknown PSH: unknown FH: Unknown Social hx: unobtainable. Allergies: NKDA Home meds: unknown Hospital course: Patient was admitted on 09/28/17 for overdose. Patient was admitted to the ICU. Psychiatry was consulted, Dr. Tavares. Accucheck showed sugars <50. Given D50 x 2. Placed on D5 - Bicarb drip and started on acetylcysteine protocol. Neurology was consulted, Dr. Bowens. EEG was done at bedside and was negative. Keppra was started. Keppra was discontinued and switched to Trileptal due to side effect profile. Per neuro, patient was also started on seroquel and acyclovir to cover for infectious causes of possible encephalitis. Patient met SIRS criteria and was started on antibiotics. On EKG, patient was found to have QT prolongation, which continuously improved throughout hospital course. Patient started to wake up and become more alert on 09/30/17. Patient reports feeling better, denied suicidal thoughts and ideations. Patient was placed on one to one observation and transferred to medical floors. Patient was seen by psychiatrist, Dr. Tavares on 10/02/17 who started the patient on zoloft and cleared the patient for discharge. Per psychiatrist, the patient will be under the care of her aunt and uncle. Patient must continue taking trilepta and seroquel, and must start taking zoloft. Imaging: Brain MRI: No evidence of acute infarction or intracranial hemorrhage. No evidence of enhancing mass or abnormal enhancement in the brain parenchyma. Cervical spine CT: No evidence of acute fractures. Head CT: No acute intracranial hemorrhage. CXR: No active disease. This is brief summary of the hospital course. Please see EMR for more details. Discharge Exam - Additional Findings Additional findings: - Constitutional Appears: No Acute Distress - Head Exam Head Exam: ATRAUMATIC, NORMAL INSPECTION - Eye Exam Eye Exam: EOMI, Normal appearance - ENT Exam ENT Exam: Mucous Membranes Moist - Respiratory Exam Respiratory Exam: NORMAL BREATHING PATTERN. absent: Rales, Rhonchi, Wheezes, Respiratory Distress - Cardiovascular Exam Cardiovascular Exam: REGULAR RHYTHM, +S1, +S2 - GI/Abdominal Exam GI & Abdominal Exam: Soft, Normal Bowel Sounds. absent: Distended, Firm, Tenderness - Extremities Exam Extremities Exam: Normal Inspection. absent: Pedal Edema, Tenderness - Neurological Exam Neurological Exam: Alert, Awake, Oriented x3 - Psychiatric Exam Psychiatric exam: Depressed - Skin Skin Exam: Dry, Intact, Normal Color, Warm Discharge Plan - Discharge Medications Prescriptions: OXcarbazepine [Trileptal] 150 mg PO BID #60 tab QUEtiapine [Seroquel] 25 mg PO HS #30 tab Sertraline [Zoloft] 50 mg PO DAILY #30 tab - Follow Up Plan Condition: FAIR Disposition: HOME/ ROUTINE Instructions: Oxcarbazepine, Quetiapine, Sertraline, Polysubstance Abuse (DC) Additional Instructions: Patient is stable for discharge to home per Dr. Tavares and Dr. Douglas. Patient must continue the following medications as prescribed: 1. Trileptal 150mg PO BID- take 1 tablet by mouth twice a day. 2. Seroquel 25mg PO HS- take 1 tablet by mouth before bedtime 3. Zoloft 50mg PO daily- take 1 tablet by mouth daily Patient must follow up with PMD. Patient must return to nearest ER if symptoms worsen or reoccur. Referrals: Katelynn Tavares MD [Staff Provider] - <Alexis Douglas - Last Filed: 10/02/17 18:56> Provider - Provider Date of Admission: 09/28/17 12:56 Attending physician: Alexis Douglas DO Hospital Course - Lab Results Lab Results: Micro Results 09/28/17 16:36 Blood-Venous Blood Culture - Preliminary NO GROWTH AFTER 4 DAYS 09/28/17 16:36 Blood-Venous Blood Culture - Preliminary NO GROWTH AFTER 4 DAYS 09/28/17 16:20 Naris MRSA Culture (Admit) - Final MRSA NOT DETECTED 09/28/17 14:29 Urine Urine Culture - Final No Growth (<1,000 CFU/ML) Most Recent Lab Values WBC 7.9 K/uL (4.8-10.8) 10/02/17 08:01 RBC 4.00 Mil/uL (3.80-5.20) 10/02/17 08:01 Hgb 11.3 g/dL (11.0-16.0) 10/02/17 08:01 Hct 33.2 % (34.0-47.0) L 10/02/17 08:01 MCV 82.9 fL (81.0-99.0) 10/02/17 08:01 MCH 28.1 pg (27.0-31.0) 10/02/17 08:01 MCHC 33.9 g/dL (33.0-37.0) 10/02/17 08:01 RDW 14.2 % (11.5-14.5) 10/02/17 08:01 Plt Count 251 K/uL (130-400) 10/02/17 08:01 MPV 8.4 fL (7.2-11.7) 10/02/17 08:01 Neut % (Auto) 71.5 % (50.0-75.0) 10/02/17 08:01 Lymph % (Auto) 20.3 % (20.0-40.0) 10/02/17 08:01 [place] % (Auto) 5.4 % (0.0-10.0) 10/02/17 08:01 Eos % (Auto) 2.2 % (0.0-4.0) 10/02/17 08:01 Baso % (Auto) 0.6 % (0.0-2.0) 10/02/17 08:01 Neut # (Auto) 5.7 K/uL (1.8-7.0) 10/02/17 08:01 Lymph # (Auto) 1.6 K/uL (1.0-4.3) 10/02/17 08:01 [place] # (Auto) 0.4 K/uL (0.0-0.8) 10/02/17 08:01 Eos # (Auto) 0.2 K/uL (0.0-0.7) 10/02/17 08:01 Baso # (Auto) 0.0 K/uL (0.0-0.2) 10/02/17 08:01 Neutrophils % (Manual) 89 % (50-75) H 09/29/17 06:12 Lymphocytes % (Manual) 8 % (20-40) L 09/29/17 06:12 Monocytes % (Manual) 3 % (0-10) 09/29/17 06:12 Platelet Estimate Normal (NORMAL) 09/29/17 06:12 RBC Morphology Normal 09/29/17 06:12 Puncture Site Rradial 09/28/17 13:45 pCO2 29 mm/Hg (35-45) L 09/28/17 13:45 pO2 27 mm/Hg (30-55) L 09/29/17 05:35 HCO3 18.0 mmol/L (21-28) L 09/28/17 13:45 ABG pH 7.34 (7.35-7.45) L 09/28/17 13:45 ABG Total CO2 16.5 mmol/L (22-28) L 09/28/17 13:45 ABG O2 Saturation 97.4 % (95-98) 09/28/17 13:45 ABG Base Excess -8.9 mmol/L (-2.0-3.0) L 09/28/17 13:45 ABG Hemoglobin 12.2 g/dL (11.7-17.4) 09/28/17 13:45 ABG Carboxyhemoglobin 0.3 % (0.5-1.5) L 09/28/17 13:45 POC ABG HHb (Measured) 2.6 % (0.0-5.0) 09/28/17 13:45 ABG Methemoglobin 0.7 % (0.0-3.0) 09/28/17 13:45 Barry Test Pos 09/28/17 13:45 VBG pH 7.49 (7.32-7.43) H 09/29/17 05:35 VBG pCO2 29 mmHg (40-60) L 09/29/17 05:35 VBG HCO3 23.7 mmol/L 09/29/17 05:35 VBG Total CO2 23.0 mmol/L (22-28) 09/29/17 05:35 VBG O2 Sat (Calc) 56.9 % (40-65) 09/29/17 05:35 VBG Base Excess -0.2 mmol/L (0.0-2.0) L 09/29/17 05:35 VBG Potassium 2.5 mmol/L (3.6-5.2) L* 09/29/17 05:35 A-a O2 Difference -15.0 mm/Hg 09/28/17 13:45 Respiratory Index -0.1 09/28/17 13:45 Hgb O2 Saturation 96.3 % (95.0-98.0) 09/28/17 13:45 Sodium 137.0 mmol/l (132-148) 09/29/17 05:35 Chloride 104.0 mmol/L (98-107) 09/29/17 05:35 Glucose 110 mg/dl (65-105) H 09/29/17 05:35 Lactate 1.5 mmol/L (0.7-2.1) 09/29/17 05:35 FiO2 21.0 % 09/28/17 13:45 Crit Value Called To Reginald sanchez rn 09/29/17 05:35 Crit Value Called By Coleman food technician 09/29/17 05:35 Crit Value Read Back Y 09/29/17 05:35 Blood Gas Notified Time 540 09/29/17 05:35 Sodium 138 mmol/L (132-148) 10/02/17 08:01 Potassium 3.5 mmol/L (3.6-5.2) L 10/02/17 08:01 Chloride 103 mmol/L (98-107) 10/02/17 08:01 Carbon Dioxide 24 mmol/L (22-30) 10/02/17 08:01 Anion Gap 15 (10-20) 10/02/17 08:01 BUN 7 mg/dL (7-17) 10/02/17 08:01 Creatinine 0.6 mg/dL (0.7-1.2) L 10/02/17 08:01 Est GFR ( Amer) > 60 10/02/17 08:01 Est GFR (Non-Af Amer) > 60 10/02/17 08:01 POC Glucose (mg/dL) 110 mg/dL (65-110) 10/02/17 11:11 Random Glucose 135 mg/dL (65-105) H 10/02/17 08:01 Serum Osmolality 295 mosm/kg (272-300) 09/29/17 09:10 Lactic Acid 3.5 mmol/L (0.7-2.1) H 09/28/17 15:20 Calcium 8.8 mg/dl (8.6-10.4) 10/02/17 08:01 Phosphorus 5.1 mg/dL (2.5-4.5) H 10/02/17 08:01 Magnesium 1.7 mg/dL (1.6-2.3) 10/02/17 08:01 Total Bilirubin 0.4 mg/dL (0.2-1.3) 10/02/17 08:01 AST 23 U/L (14-36) 10/02/17 08:01 ALT 19 U/L (9-52) 10/02/17 08:01 Alkaline Phosphatase 47 U/L (38-126) 10/02/17 08:01 Ammonia < 9 umol/L (9-33) L 09/28/17 14:24 Total Creatine Kinase 86 U/L (30-135) 09/28/17 12:19 Total Protein 6.3 g/dL (6.3-8.3) 10/02/17 08:01 Albumin 3.4 g/dL (3.5-5.0) L 10/02/17 08:01 Globulin 2.9 gm/dL (2.2-3.9) 10/02/17 08:01 Albumin/Globulin Ratio 1.1 (1.0-2.1) 10/02/17 08:01 Procalcitonin < 0.05 NG/ML (0.19-0.49) L 09/29/17 09:10 Beta HCG, Quant < 2.39 mIU/ML 09/29/17 17:52 Venous Blood Potassium 2.5 mmol/L (3.6-5.2) L* 09/29/17 05:35 Urine Color Yellow (YELLOW) 09/28/17 12:19 Urine Clarity Clear (Clear) 09/28/17 12:19 Urine pH 6.0 (5.0-8.0) 09/28/17 12:19 Ur Specific Excel 1.006 (1.003-1.030) 09/28/17 12:19 Urine Protein Negative mg/dL (NEGATIVE) 09/28/17 12:19 Urine Glucose (UA) Normal mg/dL (Normal) 09/28/17 12:19 Urine Ketones Negative mg/dL (NEGATIVE) 09/28/17 12:19 Urine Blood Negative (NEGATIVE) 09/28/17 12:19 Urine Nitrate Negative (NEGATIVE) 09/28/17 12:19 Urine Bilirubin Negative (NEGATIVE) 09/28/17 12:19 Urine Urobilinogen Normal mg/dL (0.2-1.0) 09/28/17 12:19 Ur Leukocyte Esterase Neg Bernie/uL (Negative) 09/28/17 12:19 Urine WBC (Auto) < 1 /hpf (0-5) 09/28/17 12:19 Urine RBC (Auto) < 1 /hpf (0-3) 09/28/17 12:19 Ur Squamous Epith Cells < 1 /hpf (0-5) 09/28/17 12:19 Urine Osmolality 291 mosm/kg (300-1000) L 09/28/17 15:20 Salicylates < 1.0 mg/dL 1 09/28/17 12:19 Urine Opiates Screen Negative (NEGATIVE) 09/28/17 12:19 Urine Methadone Screen Negative (NEGATIVE) 09/28/17 12:19 Acetaminophen < 10.0 ug/mL (10.0-30.0) L 09/28/17 12:19 Ur Barbiturates Screen Negative (NEGATIVE) 09/28/17 12:19 Ur Phencyclidine Scrn Negative (NEGATIVE) 09/28/17 12:19 Ur Amphetamines Screen Negative (NEGATIVE) 09/28/17 12:19 U Benzodiazepines Scrn Negative (NEGATIVE) 09/28/17 12:19 U Oth Cocaine Metabols Negative (NEGATIVE) 09/28/17 12:19 U Cannabinoids Screen Negative (NEGATIVE) 09/28/17 12:19 Alcohol, Quantitative < 10 mg/dl (0-10) 09/28/17 12:19 Attending/Attestation - Attestation I have personally seen and examined this patient.: Yes I have fully participated in the care of the patient.: Yes I have reviewed all pertinent clinical information, including history, physical exam and plan: Yes Notes (Text): Medical attending: Patient was seen and examined by me. Agree with the above note by the resident The patient was not in any acute distress when I saw her. She was alert, orientated x 3, her examination, she was tolerating her diet. On examination she did not have any muscle or neurological deficits. Lab work was also stable. Vital signs were stable as well. Later we received the OK from psychiatry to discharge the patient. thank you Alexis Douglas
[2017-10-02 16:14] VITALS: BP 98/62; PULSE 82; TEMP 98; O2SAT 100
== END 2017-10-02 17:07 | disposition home or self-care (01) | DRG 917 ==
LOC: C.ER 11:35 → C.9E 12:56 → C.9I 15:09 → C.3T 10-01 21:29
PROVIDERS: ADMIT Hospitalist; ATTEND Hospitalist
DX: T39.312A Poisoning by propionic acid derivatives, intentional self-harm, initial encounter (principal); G93.41 Metabolic encephalopathy; F32.2 Major depressive disorder, single episode, severe without psychotic features; E87.2 Acidosis; Y92.009 Unspecified place in unspecified non-institutional (private) residence as the place of occurrence of the external cause; R56.9 Unspecified convulsions; R45.850 Homicidal ideations; E16.2 Hypoglycemia, unspecified; T45.0X2A Poisoning by antiallergic and antiemetic drugs, intentional self-harm, initial encounter